=== PATIENT | male | born 1965 | race African-American/Black ===

== ENCOUNTER 2016-07-07 14:54 | Inpatient (IN) | payer MEDICARE, OTHER ==
[2016-07-07 16:23] VITALS: BMI 23.3
--- NOTE | 2016-07-07 16:40 | HP ---
CIWA Score - CIWA Score Nausea/Vomitin-Mild Nausea/No Vomiting Muscle Tremors: 4-Moderate,w/Arms Extend Anxiety: 4-Mod. Anxious/Guarded Agitation: 4-Moderately Restless Paroxysmal Sweats: 2 Orientation: 0-Oriented Tacttile Disturbances: 0-None Auditory Disturbances: 0-None Visual Disturbances: 0-None Headache: 0-None Present CIWA-Ar Total Score: 15 Admission ROS BHS - HPI Chief Complaint: WITHDRAWAL SX Allergies/Adverse Reactions: Allergies Allergy/AdvReac Type Severity Reaction Status Date / Time No Known Allergies Allergy Verified 07/07/16 16:19 History of Present Illness: 50 YEARS OLD MALE WITH LONG HISTORY OF ALCOHOL COCAINE MARIJUANA NICOTINE DEPENDENCE, TEETH FILLING OUT X 8-9 MONTHS DENIES MENTAL ILLNESS IS ADMITTED TO DETOX Exam Limitations: No Limitations - Ebola screening Have you traveled outside of the country in the last 21 days: No Have you had contact with anyone from an Ebola affected area: No Have you been sick,other than usual withdrawal symptoms: No Do you have a fever: No - Review of Systems Constitutional: Chills, Loss of Appetite, Changes in sleep, Unintentional Wgt. Loss, Unexplained wgt Loss EENT: reports: Dental Problems (LEFT AND RIGHT UPPER TEETH FILLING OUT X 8-9 MONTHS) Respiratory: reports: No Symptoms reported Cardiac: reports: No Symptoms Reported GI: reports: Nausea, Poor Appetite, Poor Fluid Intake, Abdominal cramping : reports: No Symptoms Reported Musculoskeletal: reports: No Symptoms Reported Integumentary: reports: No Symptoms Reported Neuro: reports: Tremors Endocrine: reports: No Symptoms Reported Hematology: reports: No Symptoms Reported Psychiatric: reports: Judgement Intact, Mood/Affect Appropiate, Orientated x3 Other Systems: Reviewed and Negative Patient History - Patient Medical History Hx Anemia: No Hx Asthma: No Hx Chronic Obstructive Pulmonary Disease (COPD): No Hx Cancer: No Hx Cardiac Disorders: No Hx Congestive Heart Failure: No Hx Hypertension: No Hx Hypercholesterolemia: No Hx Pacemaker: No HX Cerebrovascular Accident: No Hx Seizures: No Hx Dementia: No Hx Diabetes: No Hx Gastrointestinal Disorders: No Hx Liver Disease: No Hx Genitourinary Disorders: No Hx Sexually Transmitted Disorders: No Hx Renal Disease (ESRD): No Hx Thyroid Disease: No Hx Human Immunodeficiency Virus (HIV): No Hx Hepatitis C: No Hx Depression: No Hx Suicide Attempt: No Hx Bipolar Disorder: No Hx Schizophrenia: No - Patient Surgical History Past Surgical History: No Hx Neurologic Surgery: No Hx Cataract Extraction: No Hx Cardiac Surgery: No Hx Lung Surgery: No Hx Breast Surgery: No Hx Breast Biopsy: No Hx Abdominal Surgery: No Hx Appendectomy: No Hx Cholecystectomy: No Hx Genitourinary Surgery: No Hx Orthopedic Surgery: No - PPD History Previous Implant?: Yes Documented Results: Negative w/o proof Implanted On Prior [facility] Admission?: No PPD to be Administered?: Yes - Smoking Cessation Smoking history: Current every day smoker Have you smoked in the past 12 months: Yes Aproximately how many cigarettes per day: 5 Cigars Per Day: 0 Hx Chewing Tobacco Use: No Initiated information on smoking cessation: Yes 'Breaking Loose' booklet given: 07/07/16 - Substance & Tx. History Hx Alcohol Use: Yes Hx Substance Use: Yes Substance Use Type: Alcohol, Cocaine, Marijuana Hx Substance Use Treatment: Yes - Substances Abused Alcohol Route: Oral Frequency: Daily Amount used: 5 beer, 5th tres Age of first use: 17 Date of Last Use: 07/07/16 Cocaine Route: Inhalation Frequency: 1-3 times last 30 days Amount used: (2) 8 balls Age of first use: 50 Date of Last Use: 07/06/16 Marijuana/Hashish Route: Smoking Frequency: Daily Amount used: $80 Age of first use: 15 Date of Last Use: 07/07/16 K2 Route: Smoking Frequency: 3-6 times per week Amount used: 1 joint Age of first use: 50 Date of Last Use: 07/03/16 Family Disease History - Family Disease History Family Disease History: Diabetes: Mother Admission Physical Exam [facility] - Vital Signs Vital Signs: Vital Signs - 24 hr 07/07/16 16:18 Temperature 96.2 F L Pulse Rate 56 L Respiratory 18 Rate Blood Pressure 118/69 - Physical General Appearance: Yes: Appropriately Dressed, Moderate Distress, Thin, Tremorous, Irritable, Sweating, Anxious HEENTM: Yes: Hearing grossly Normal, Normal ENT Inspection, Normocephalic, Normal Voice Respiratory: Yes: Chest Non-Tender, Lungs Clear, Normal Breath Sounds, No Respiratory Distress, No Accessory Muscle Use Neck: Yes: Supple, Trachea in good position Breast: Yes: Breasts Symetrical Cardiology: Yes: Regular Rhythm, Regular Rate, S1, S2 Abdominal: Yes: Non Tender, Soft Genitourinary: Yes: Within Normal Limits Back: Yes: Normal Inspection Musculoskeletal: Yes: full range of Motion, Gait Steady Extremities: Yes: Normal Inspection, Normal Range of Motion, Non-Tender, Tremors Neurological: Yes: Fully Oriented, Alert, Motor Strength 5/5, Normal Mood/Affect , Normal Response Integumentary: Yes: Warm, Moist Lymphatic: Yes: Within Normal Limits - Diagnostic (1) Alcohol dependence with uncomplicated withdrawal Current Visit: Yes Status: Acute (2) Nicotine dependence Current Visit: Yes Status: Acute Qualifiers: Nicotine product type: cigarettes Substance use status: in withdrawal Qualified Code(s): F17.213 - Nicotine dependence, cigarettes, with withdrawal (3) Poor dentition Current Visit: Yes Status: Acute Comment: FILLING OUT X 8-9 MONTHS, "I BRUSH AND RINSE AFTER I EAT", DENIES PAIN , DENIES TROUBLE CHEWING (4) Cocaine dependence, uncomplicated Current Visit: Yes Status: Chronic (5) Cannabis dependence, uncomplicated Current Visit: Yes Status: Chronic Cleared for Admission [facility] - Detox or Rehab [facility] Level of Care: Medically Managed Detox Regimen/Protocol: Librium [facility] Breath Alcohol Content Breath Alcohol Content: 0 Urine Drug Screen - Results Drug Screen Negative: No Urine Drug Screen Results: THC-Marijuana, CICI-Cocaine
[2016-07-07] MEDS ORDERED: IBUPROFEN 400 MG TABLET (FP) PO PRN (16:43)
[2016-07-07] MEDS ORDERED: MAGNESIUM HYDROX 2400MG/30ML ORAL SUSPENSION 30 ML CUP PO PRN (16:43)
[2016-07-07] MEDS ORDERED: hydrOXYzine PAMOATE 50 MG CAPSULE (FP) PO PRN (16:43)
[2016-07-07] MEDS ORDERED: MAG HYDROX/AL HYDROX/SIMETH 30 ML UNIT-DOSE CUP PO PRN (16:43)
[2016-07-07] MEDS ORDERED: P-EPHED 60MG/TRIPROLIDI 2.5MG TABLET PO PRN (16:43)
[2016-07-07] MEDS ORDERED: LOPERAMIDE HCL 2 MG CAPSULE PO PRN (16:43)
[2016-07-07] MEDS ORDERED: MAGNESIUM CITRATE 300 ML BOTTLE PO PRN (16:43)
[2016-07-07] MEDS ORDERED: MENTHOL/PHENOL 1 EACH UD MM PRN (16:43)
[2016-07-07] MEDS ORDERED: NICOTINE POLACRILEX 2 MG GUM BC PRN (16:43)
[2016-07-07] MEDS ORDERED: ACETAMINOPHEN 325 MG TABLET (FP) PO PRN (16:43)
[2016-07-07] MEDS ORDERED: guaiFENesin/D-METHORPHAN HB 10 ML UNIT-DOSE CUPS PO PRN (16:43)
[2016-07-07] MEDS ORDERED: chlordiazePOXIDE HCL 25 MG CAPSULE PO PRN (16:43)
[2016-07-07] MEDS ORDERED: diphenhydrAMINE HCL 50 MG CAPSULE PO PRN (16:43)
[2016-07-07] MEDS: THIAMINE HCL 100 MG TABLET (FP) PO SCH (22:55)
[2016-07-07] MEDS: chlordiazePOXIDE HCL 25 MG CAPSULE PO SCH (23:05)
[2016-07-07 23:30] LABS: URINE APPEARANCE CLEAR; URINE BILIRUBIN NEGATIVE (NEGATIVE); URINE BLOOD NEGATIVE (NEGATIVE); URINE COLOR COLORLESS; URINE GLUCOSE (UA) NEGATIVE (NEGATIVE); URINE KETONE NEGATIVE (NEGATIVE); URINE LEUK ESTERASE NEGATIVE (NEGATIVE); URINE NITRITE NEGATIVE (NEGATIVE); URINE PROTEIN NEGATIVE (NEGATIVE); URINE UROBILINOGEN NEGATIVE E.U./dl (0.2-1.0)
[2016-07-08] MEDS: chlordiazePOXIDE HCL 25 MG CAPSULE PO SCH ×4 (05:25→22:07)
--- NOTE | 2016-07-08 09:39 | PN ---
S CIWA - CIWA Score Nausea/Vomitin Muscle Tremors: 3 Anxiety: 3 Agitation: 3 Paroxysmal Sweats: 1-Minimal Palms Moist Orientation: 0-Oriented Tacttile Disturbances: 1-Very Mild Itch/Numbness Auditory Disturbances: 1-Very Mild Visual Disturbances: 1-Very Mild Sensitivity Headache: 2-Mild CIWA-Ar Total Score: 18 BHS Progress Note (SOAP) Subjective: alert,irritable,anxious,interrupted sleep,tremor,interrupted sleep Objective: 07/08/16 09:38 Vital Signs Temperature 97.9 F 07/08/16 06:00 Pulse Rate 47 L 07/08/16 06:00 Respiratory Rate 18 07/08/16 06:00 Blood Pressure 103/64 07/08/16 06:00 O2 Sat by Pulse Oximetry (%) ekg sinus bradycardia 50/min Laboratory Last Values Urine Color Colorless 07/07/16 23:25 Urine Appearance Clear 07/07/16 23:25 Urine pH 6.0 (5.0-8.0) 07/07/16 23:25 Ur Specific [place] 1.001 (1.001-1.035) 07/07/16 23:25 Urine Protein Negative (NEGATIVE) 07/07/16 23:25 Urine Glucose (UA) Negative (NEGATIVE) 07/07/16 23:25 Urine Ketones Negative (NEGATIVE) 07/07/16 23:25 Urine Blood Negative (NEGATIVE) 07/07/16 23:25 Urine Nitrite Negative (NEGATIVE) 07/07/16 23:25 Urine Bilirubin Negative (NEGATIVE) 07/07/16 23:25 Urine Urobilinogen Negative E.U./dl (0.2-1.0) 07/07/16 23:25 Ur Leukocyte Esterase Negative (NEGATIVE) 07/07/16 23:25 07/08/16 09:39 labs pending Assessment: withdrawal symptom Plan: continue detox
[2016-07-08 10:03] LABS: MCH 30.6 pg (25.7-33.7); MCHC 33.4 g/dl (32.0-35.9); MEAN CELL VOLUME 91.8 fl (80-96); MEAN PLT VOLUME 9.7 fl (7.5-11.1); PLATELET COUNT 162 K/MM3 (134-434); RDW 15.6 % (11.9-15.9); WHITE BLOOD COUNT 3.6 K/mm3 (4.0-10.0)
[2016-07-08] MEDS: PRENATAL VITAMINS W/ FOLIC ACID TABLET (FP) PO SCH (10:12)
[2016-07-08 10:29] LABS: ALBUMIN 3.7 g/dl (3.4-5.0); BILIRUBIN,TOTAL 0.5 mg/dL (0.2-1.0); CALCIUM 9.1 mg/dL (8.5-10.1); CREATININE 1.3 mg/dL (0.7-1.3); TOT PROT 6.6 g/dl (6.4-8.2)
[2016-07-08] MEDS: NICOTINE 14 MG/24 HOURS TOPICAL PATCH TD SCH (11:02)
--- NOTE | 2016-07-08 15:20 | EKG ---
Test Reason : Blood Pressure : / mmHG Vent. Rate : 050 BPM Atrial Rate : 050 BPM P-R Int : 172 ms QRS Dur : 086 ms QT Int : 424 ms P-R-T Axes : 077 068 049 degrees QTc Int : 386 ms SINUS BRADYCARDIA MINIMAL VOLTAGE CRITERIA FOR LVH, MAY BE NORMAL VARIANT NO PREVIOUS ECGS AVAILABLE Confirmed by TRUMAN ROMAN MD ([id number]) on 07/08/2016 3:20:28 PM Referred By: Confirmed By:TRUMAN ROMAN MD
[2016-07-08] MEDS: THIAMINE HCL 100 MG TABLET (FP) PO SCH (22:07)
[2016-07-09] MEDS: chlordiazePOXIDE HCL 25 MG CAPSULE PO SCH ×3 (05:19→17:48)
--- NOTE | 2016-07-09 09:00 | PN ---
BHS CIWA - CIWA Score Nausea/Vomitin Muscle Tremors: 3 Anxiety: 3 Paroxysmal Sweats: 1-Minimal Palms Moist Orientation: 0-Oriented Tacttile Disturbances: 1-Very Mild Itch/Numbness Auditory Disturbances: 1-Very Mild Visual Disturbances: 1-Very Mild Sensitivity Headache: 2-Mild BHS Progress Note (SOAP) Subjective: ALERT,IRRITABLE,ANXIOUS,INTERRUPTED SLEEP,TREMOR Objective: 07/09/16 09:00 Vital Signs Temperature 97.3 F L 07/09/16 06:20 Pulse Rate 76 07/09/16 06:20 Respiratory Rate 18 07/09/16 06:20 Blood Pressure 100/64 07/09/16 06:20 O2 Sat by Pulse Oximetry (%) Laboratory Last Values WBC 3.6 K/mm3 (4.0-10.0) L 07/08/16 07:30 RBC 4.66 M/mm3 (4.00-5.60) 07/08/16 07:30 Hgb 14.3 GM/dL (11.7-16.9) 07/08/16 07:30 Hct 42.8 % (35.4-49) 07/08/16 07:30 MCV 91.8 fl (80-96) 07/08/16 07:30 MCHC 33.4 g/dl (32.0-35.9) 07/08/16 07:30 RDW 15.6 % (11.9-15.9) 07/08/16 07:30 Plt Count 162 K/MM3 (134-434) 07/08/16 07:30 MPV 9.7 fl (7.5-11.1) 07/08/16 07:30 Sodium 142 mmol/L (136-145) 07/08/16 07:30 Potassium 3.8 mmol/L (3.5-5.1) 07/08/16 07:30 Chloride 106 mmol/L (98-107) 07/08/16 07:30 Carbon Dioxide 29 mmol/L (21-32) 07/08/16 07:30 Anion Gap 7 (8-16) L 07/08/16 07:30 BUN 10 mg/dL (7-18) 07/08/16 07:30 Creatinine 1.3 mg/dL (0.7-1.3) 07/08/16 07:30 Creat Clearance w eGFR 58.92 (>60) 07/08/16 07:30 Random Glucose 85 mg/dL (74-106) 07/08/16 07:30 Calcium 9.1 mg/dL (8.5-10.1) 07/08/16 07:30 Total Bilirubin 0.5 mg/dL (0.2-1.0) 07/08/16 07:30 AST 12 U/L (15-37) L 07/08/16 07:30 ALT 14 U/L (12-78) 07/08/16 07:30 Alkaline Phosphatase 75 U/L (45-117) 07/08/16 07:30 Total Protein 6.6 g/dl (6.4-8.2) 07/08/16 07:30 Albumin 3.7 g/dl (3.4-5.0) 07/08/16 07:30 Urine Color Colorless 07/07/16 23:25 Urine Appearance Clear 07/07/16 23:25 Urine pH 6.0 (5.0-8.0) 07/07/16 23:25 Ur Specific [place] 1.001 (1.001-1.035) 07/07/16 23:25 Urine Protein Negative (NEGATIVE) 07/07/16 23:25 Urine Glucose (UA) Negative (NEGATIVE) 07/07/16 23:25 Urine Ketones Negative (NEGATIVE) 07/07/16 23:25 Urine Blood Negative (NEGATIVE) 07/07/16 23:25 Urine Nitrite Negative (NEGATIVE) 07/07/16 23:25 Urine Bilirubin Negative (NEGATIVE) 07/07/16 23:25 Urine Urobilinogen Negative E.U./dl (0.2-1.0) 07/07/16 23:25 Ur Leukocyte Esterase Negative (NEGATIVE) 07/07/16 23:25 RPR Titer Nonreactive (NONREACTIVE) 07/08/16 07:30 Hepatitis C Antibody <0.1 s/co ratio (0.0-0.9) 07/07/16 07:30 Assessment: 07/09/16 09:00 WITHDRAWAL SYMPTOM Plan: CONTINUE DETOX
[2016-07-09] MEDS: NICOTINE 14 MG/24 HOURS TOPICAL PATCH TD SCH (10:07)
[2016-07-09] MEDS: PRENATAL VITAMINS W/ FOLIC ACID TABLET (FP) PO SCH (10:07)
[2016-07-09] MEDS: chlordiazePOXIDE 5 MG CAPSULE PO SCH (22:55)
[2016-07-09] MEDS: THIAMINE HCL 100 MG TABLET (FP) PO SCH (22:55)
[2016-07-10] MEDS: chlordiazePOXIDE 5 MG CAPSULE PO SCH ×3 (05:31→18:08)
[2016-07-10] MEDS: PRENATAL VITAMINS W/ FOLIC ACID TABLET (FP) PO SCH (11:01)
[2016-07-10] MEDS: NICOTINE 14 MG/24 HOURS TOPICAL PATCH TD SCH (11:01)
--- NOTE | 2016-07-10 12:13 | PN ---
S Progress Note (SOAP) Subjective: ALERT,IRRITABLE,ANXIOUS,INTERRUPTED SLEEP Objective: 07/10/16 12:12 Vital Signs Temperature 97.9 F 07/10/16 09:52 Pulse Rate 70 07/10/16 09:52 Respiratory Rate 20 07/10/16 09:52 Blood Pressure 92/64 07/10/16 09:52 O2 Sat by Pulse Oximetry (%) Assessment: 07/10/16 12:12 WITHDRAWAL SYMPTOM Plan: CONTINUE DETOX,DISCHARGE IN AM
[2016-07-10] MEDS: chlordiazePOXIDE HCL 10 MG CAPSULE PO SCH (22:40)
[2016-07-10] MEDS: THIAMINE HCL 100 MG TABLET (FP) PO SCH (22:40)
[2016-07-11] MEDS: chlordiazePOXIDE HCL 10 MG CAPSULE PO SCH (06:10)
[2016-07-11 06:18] VITALS: BP 104/59; PULSE 58; TEMP 97.5
--- NOTE | 2016-07-11 08:42 | DS ---
[facility] Detox Discharge Summary Admission Date: 07/07/16 Discharge Date: 07/11/16 - History Present History: Alcohol Dependence, Cannabis Dependence, Cocaine Dependence - Physical Exam Results Vital Signs: Vital Signs Temperature 97.5 F L 07/11/16 06:00 Pulse Rate 58 L 07/11/16 06:00 Respiratory Rate 18 07/11/16 06:00 Blood Pressure 104/59 07/11/16 06:00 O2 Sat by Pulse Oximetry (%) - Treatment Hospital Course: Detox Protocol Followed, Detoxed Safely, Responded well, Discharged Condition Good, Rehab Referral Accepted - Medication Discharge Medications: Ambulatory Orders NK [No Known Home Medication] 07/07/16 - Diagnosis (1) Alcohol dependence with uncomplicated withdrawal Current Visit: Yes Status: Chronic (2) Nicotine dependence Current Visit: Yes Status: Chronic Qualifiers: Nicotine product type: cigarettes Substance use status: in withdrawal Qualified Code(s): F17.213 - Nicotine dependence, cigarettes, with withdrawal (3) Poor dentition Current Visit: Yes Status: Chronic (4) Cannabis dependence, uncomplicated Current Visit: Yes Status: Chronic (5) Cocaine dependence, uncomplicated Current Visit: Yes Status: Chronic - AMA Did Patient Leave Against Medical Advice: No
== END 2016-07-11 09:59 | disposition home or self-care (01) | DRG 774 ==
LOC: YASAS 14:54 → Y6N 17:44
PROVIDERS: ADMIT Internal Medicine Addiction Medicine; ATTEND Internal Medicine Addiction Medicine
PROC: HZ2ZZZZ Detoxification Services for Substance Abuse Treatment (ICD-10-PCS; principal; 2016-07-07)
DX: F10.230 Alcohol dependence with withdrawal, uncomplicated (principal); F14.20 Cocaine dependence, uncomplicated; F12.20 Cannabis dependence, uncomplicated; F17.210 Nicotine dependence, cigarettes, uncomplicated; K08.9 Disorder of teeth and supporting structures, unspecified; R00.0 Tachycardia, unspecified; Z59.0 Homelessness
CPT/HCPCS: 36415; 80053; 81003; 85027; 86593; 93005; 93010

== ENCOUNTER 2018-09-18 10:12 | Inpatient (IN) | payer SELFPAY ==
[2018-09-18 10:52] VITALS: BMI 24.8
--- NOTE | 2018-09-18 12:06 | HP ---
CIWA Score Nausea/Vomitin-No Nausea/No Vomiting Muscle Tremors: 1-None Visible, but [place] Anxiety: 1-Mildly Anxious Agitation: 2 Paroxysmal Sweats: 3 Orientation: 0-Oriented Tacttile Disturbances: 0-None Auditory Disturbances: 6-Extreme Hallucinations Visual Disturbances: 0-None Headache: 0-None Present CIWA-Ar Total Score: 13 - Admission Criteria [facility] Guidelines: Admission for Medically Managed Detox: Requires at least one of the followin. CIWA greater than 12 2. Seizures within the past 24 hours 3. Delirium tremens within the past 24 hours 4. Hallucinations within the past 24 hours 5. Acute intervention needed for co occurring medical disorder 6. Acute intervention needed for co occurring psychiatric disorder 7. Severe withdrawal that cannot be handled at a lower level of care (continued vomiting, continued diarrhea, abnormal vital signs) requiring intravenous medication and/or fluids 8. Admission ROS [facility] Allergies/Adverse Reactions: Allergies Allergy/AdvReac Type Severity Reaction Status Date / Time No Known Allergies Allergy Verified 07/07/16 16:19 History of Present Illness: pt here requesting detox from etoh use 6- 7 beers/day since prior attempt at detox , increasingly since May 2018, starts drinking in the mornings upon awakening, denies tremors , denies seizures, one time blackout, denies falls while intoxicated Current symptoms : as above . Lost 25 lbs in the last 3 months 2/2 use of illicits. utox + mily , thc cocaine : daily via inhalation , average 0.5 -1 gr/day denies IVDU , since age 25 cannabis use : 3-4 blunts/day since age 17 tobacco : 7-8 cigs/day since age 22 PMHX : denies PSHx : denies PSYch :denies Meds : denies Allergies : denies SHx : lives w/ mother , unemployed Exam Limitations: No Limitations - Ebola screening Have you traveled outside of the country in the last 21 days: No (N) Have you had contact with anyone from an Ebola affected area: No Do you have a fever: No - Review of Systems Constitutional: See HPI EENT: reports: No Symptoms Reported Respiratory: reports: No Symptoms reported Cardiac: reports: No Symptoms Reported GI: reports: No Symptoms Reported : reports: No Symptoms Reported Musculoskeletal: reports: No Symptoms Reported Integumentary: reports: No Symptoms Reported Neuro: reports: No Symptoms reported Endocrine: reports: No Symptoms Reported Psychiatric: reports: No Sypmtoms Reported Patient History - Patient Medical History Hx Anemia: No Hx Asthma: No Hx Chronic Obstructive Pulmonary Disease (COPD): No Hx Cancer: No Hx Cardiac Disorders: No Hx Congestive Heart Failure: No Hx Hypertension: No Hx Hypercholesterolemia: No Hx Pacemaker: No HX Cerebrovascular Accident: No Hx Seizures: No Hx Dementia: No Hx Diabetes: No Hx Gastrointestinal Disorders: No Hx Liver Disease: No Hx Genitourinary Disorders: No Hx Sexually Transmitted Disorders: No Hx Renal Disease (ESRD): No Hx Thyroid Disease: No Hx Human Immunodeficiency Virus (HIV): No Hx Hepatitis C: No Hx Depression: No Hx Suicide Attempt: No Hx Bipolar Disorder: No Hx Schizophrenia: No - Patient Surgical History Past Surgical History: No Hx Neurologic Surgery: No Hx Cataract Extraction: No Hx Cardiac Surgery: No Hx Lung Surgery: No Hx Breast Surgery: No Hx Breast Biopsy: No Hx Abdominal Surgery: No Hx Appendectomy: No Hx Cholecystectomy: No Hx Genitourinary Surgery: No Hx Section: No Hx Orthopedic Surgery: No Anesthesia Reaction: No - PPD History Date: 07/09/16 - Smoking Cessation Smoking history: Current every day smoker Have you smoked in the past 12 months: Yes Aproximately how many cigarettes per day: 5 Cigars Per Day: 0 Hx Chewing Tobacco Use: No Initiated information on smoking cessation: No - Substances abused Alcohol Substance route: Oral Frequency: Daily Amount used: 6 CANS 24OZ BEER Age of first use: 17 Date of last use: 09/18/18 Cocaine Substance route: Inhalation Frequency: 3-6 times per week Amount used: 3.5G Age of first use: 26 Date of last use: 09/17/18 Marijuana/Hashish Substance route: Smoking Frequency: Daily Amount used: 4-5 BLUNT Age of first use: 16 Date of last use: 09/18/18 Family Disease History - Family Disease History Family Disease History: Diabetes: Mother Admission Physical Exam [facility] - Vital Signs Vital Signs: Vital Signs - 24 hr 09/18/18 10:39 Temperature 97.5 F L Pulse Rate 78 Respiratory 18 Rate Blood Pressure 113/72 - Physical General Appearance: Yes: Mild Distress, Anxious HEENTM: Yes: EOMI, Normocephalic, Normal Voice Respiratory: Yes: Chest Non-Tender, Lungs Clear, Normal Breath Sounds Neck: Yes: No masses,lesions,Nodules, Trachea in good position Cardiology: Yes: Regular Rhythm, Regular Rate, S1, S2 Abdominal: Yes: Non Tender, Soft Back: Yes: Normal Inspection Musculoskeletal: Yes: Gait Steady Extremities: Yes: Normal Range of Motion, Non-Tender Neurological: Yes: Fully Oriented, Alert, Motor Strength 5/5 Integumentary: Yes: Warm, Other (scardorsum left wrist from prior work injury 1996 in [place]) - Diagnostic (1) Alcohol dependence with uncomplicated withdrawal Current Visit: Yes Status: Acute (2) Cannabis dependence, uncomplicated Current Visit: Yes Status: Chronic (3) Cocaine dependence, uncomplicated Current Visit: Yes Status: Chronic (4) Nicotine dependence Current Visit: Yes Status: Chronic Qualifiers: Nicotine product type: cigarettes Breathalyzer - Breathalyzer Breathalyzer: 0.018 Urine Drug Screen - Test Device Lot number: [id number] Expiration date: 06/07/20 - Control Is test valid?: Yes - Results Drug screen NEGATIVE: No Urine drug screen results: THC-Marijuana, MILY-Cocaine Inpatient Rehab Admission - Rehab Decision to Admit Inpatient rehab admission?: No
[2018-09-18] MEDS ORDERED: ACETAMINOPHEN 325 MG TABLET (FP) PO PRN ×2 (12:38)
[2018-09-18] MEDS ORDERED: MAGNESIUM CITRATE 300 ML BOTTLE PO PRN (12:38)
[2018-09-18] MEDS ORDERED: MAG HYDROX/AL HYDROX/SIMETH 30 ML UNIT-DOSE CUP PO PRN (12:38)
[2018-09-18] MEDS ORDERED: IBUPROFEN 400 MG TABLET (FP) PO PRN (12:38)
[2018-09-18] MEDS ORDERED: MAGNESIUM HYDROX 2400MG/30ML ORAL SUSPENSION 30 ML CUP PO PRN (12:38)
[2018-09-18] MEDS ORDERED: BISMUTH SUBSALICYLATE 262 MG/15 ML BTL PO PRN (12:38)
[2018-09-18] MEDS ORDERED: DICYCLOMINE HCL 10 MG CAPSULE PO PRN (12:38)
[2018-09-18] MEDS: diazePAM 5 MG TABLET PO SCH ×2 (15:21→22:22)
[2018-09-18] MEDS: THIAMINE HCL 100 MG TABLET (FP) PO SCH (22:22)
[2018-09-18] MEDS: MELATONIN 5 MG TABLETS PO PRN (22:22)
[2018-09-18 23:26] LABS: HEMATOCRIT 43.6 % (35.4-49); HEMOGLOBIN 14.5 GM/dL (11.7-16.9); MCH 30.7 pg (25.7-33.7); MCHC 33.2 g/dl (32.0-35.9); MEAN CELL VOLUME 92.7 fl (80-96); MEAN PLT VOLUME 8.9 fl (7.5-11.1); PLATELET COUNT 267 K/MM3 (134-434); RBC 4.71 M/mm3 (4.00-5.60); RDW 15.5 % (11.9-15.9); WHITE BLOOD COUNT 5.3 K/mm3 (4.0-10.0)
[2018-09-18 23:42] LABS: BILIRUBIN,TOTAL 0.5 mg/dL (0.2-1); CALCIUM 9.7 mg/dL (8.5-10.1); CREATININE 1.1 mg/dL (0.55-1.3); POTASSIUM 4.6 mmol/L (3.5-5.1); TOT PROT 7.6 g/dl (6.4-8.2)
[2018-09-19] MEDS: diazePAM 5 MG TABLET PO SCH ×3 (05:59→22:05)
[2018-09-19] MEDS: PRENATAL VITAMINS W/ FOLIC ACID TABLET (FP) PO SCH (10:35)
--- NOTE | 2018-09-19 10:51 | PN ---
[facility] CIWA - CIWA Score Nausea/Vomitin-Mild Nausea/No Vomiting Muscle Tremors: 2 Anxiety: 3 Agitation: 3 Paroxysmal Sweats: 1-Minimal Palms Moist Orientation: 2-Disoriented Date<2 days Tacttile Disturbances: 0-None Auditory Disturbances: 0-None Visual Disturbances: 0-None Headache: 0-None Present CIWA-Ar Total Score: 12 BHS Progress Note (SOAP) Subjective: anxious doing well with valium detox regimen resting on bed hesitate to discuss aftercare at this time Objective: 09/19/18 10:54 Vital Signs Temperature 97 F L 09/19/18 09:10 Pulse Rate 60 09/19/18 09:10 Respiratory Rate 16 09/19/18 09:10 Blood Pressure 103/70 09/19/18 09:10 O2 Sat by Pulse Oximetry (%) Laboratory Last Values WBC 5.3 K/mm3 (4.0-10.0) 09/18/18 13:00 RBC 4.71 M/mm3 (4.00-5.60) 09/18/18 13:00 Hgb 14.5 GM/dL (11.7-16.9) 09/18/18 13:00 Hct 43.6 % (35.4-49) 09/18/18 13:00 MCV 92.7 fl (80-96) 09/18/18 13:00 MCH 30.7 pg (25.7-33.7) 09/18/18 13:00 MCHC 33.2 g/dl (32.0-35.9) 09/18/18 13:00 RDW 15.5 % (11.9-15.9) 09/18/18 13:00 Plt Count 267 K/MM3 (134-434) D 09/18/18 13:00 MPV 8.9 fl (7.5-11.1) 09/18/18 13:00 Sodium 137 mmol/L (136-145) 09/18/18 13:00 Potassium 4.6 mmol/L (3.5-5.1) 09/18/18 13:00 Chloride 103 mmol/L (98-107) 09/18/18 13:00 Carbon Dioxide 30 mmol/L (21-32) 09/18/18 13:00 Anion Gap 4 MMOL/L (8-16) L 09/18/18 13:00 BUN 10 mg/dL (7-18) 09/18/18 13:00 Creatinine 1.1 mg/dL (0.55-1.3) 09/18/18 13:00 Est GFR (CKD-EPI)AfAm 89.61 09/18/18 13:00 Est GFR (CKD-EPI)NonAf 77.32 09/18/18 13:00 POC Glucometer 132 UNITS (80-120) 09/18/18 23:54 Random Glucose 49 mg/dL (74-106) L* 09/18/18 13:00 Calcium 9.7 mg/dL (8.5-10.1) 09/18/18 13:00 Total Bilirubin 0.5 mg/dL (0.2-1) 09/18/18 13:00 AST 17 U/L (15-37) 09/18/18 13:00 ALT 16 U/L (13-61) 09/18/18 13:00 Alkaline Phosphatase 66 U/L (45-117) 09/18/18 13:00 Total Protein 7.6 g/dl (6.4-8.2) 09/18/18 13:00 Albumin 4.0 g/dl (3.4-5.0) 09/18/18 13:00 RPR Titer Nonreactive (NONREACTIVE) 09/18/18 13:00 lab noted 09/19/18 10:55 ensure 120 ml po daily Assessment: 09/19/18 10:55 benzo withdrawal sx Plan: continue detox
[2018-09-19] MEDS: MENTHOL/PHENOL 1 EACH UD MM PRN (17:18)
[2018-09-19] MEDS: diazePAM 5 MG TABLET PO PRN (17:18)
[2018-09-19] MEDS: NICOTINE POLACRILEX 2 MG GUM BUC PRN (17:19)
[2018-09-19] MEDS: THIAMINE HCL 100 MG TABLET (FP) PO SCH (22:04)
[2018-09-19] MEDS: MELATONIN 5 MG TABLETS PO PRN (22:05)
[2018-09-20] MEDS ORDERED: diazePAM 5 MG TABLET PO ONE (06:00)
[2018-09-20] MEDS: PRENATAL VITAMINS W/ FOLIC ACID TABLET (FP) PO SCH (10:59)
[2018-09-20] MEDS: diazePAM 5 MG TABLET PO PRN ×2 (11:01→22:20)
--- NOTE | 2018-09-20 11:17 | PN ---
[facility] CIWA - CIWA Score Nausea/Vomitin-Mild Nausea/No Vomiting Muscle Tremors: 2 Anxiety: 1-Mildly Anxious Agitation: 2 Paroxysmal Sweats: 1-Minimal Palms Moist Orientation: 0-Oriented Tacttile Disturbances: 0-None Auditory Disturbances: 0-None Visual Disturbances: 0-None Headache: 0-None Present CIWA-Ar Total Score: 7 S Progress Note (SOAP) Subjective: patient referred to [facility] PPD not ready for result [facility] requests PPD result Objective: 09/20/18 11:58 Vital Signs Temperature 97.1 F L 09/20/18 09:46 Pulse Rate 61 09/20/18 09:46 Respiratory Rate 20 09/20/18 09:46 Blood Pressure 107/71 09/20/18 09:46 O2 Sat by Pulse Oximetry (%) Laboratory Last Values WBC 5.3 K/mm3 (4.0-10.0) 09/18/18 13:00 RBC 4.71 M/mm3 (4.00-5.60) 09/18/18 13:00 Hgb 14.5 GM/dL (11.7-16.9) 09/18/18 13:00 Hct 43.6 % (35.4-49) 09/18/18 13:00 MCV 92.7 fl (80-96) 09/18/18 13:00 MCH 30.7 pg (25.7-33.7) 09/18/18 13:00 MCHC 33.2 g/dl (32.0-35.9) 09/18/18 13:00 RDW 15.5 % (11.9-15.9) 09/18/18 13:00 Plt Count 267 K/MM3 (134-434) D 09/18/18 13:00 MPV 8.9 fl (7.5-11.1) 09/18/18 13:00 Sodium 137 mmol/L (136-145) 09/18/18 13:00 Potassium 4.6 mmol/L (3.5-5.1) 09/18/18 13:00 Chloride 103 mmol/L (98-107) 09/18/18 13:00 Carbon Dioxide 30 mmol/L (21-32) 09/18/18 13:00 Anion Gap 4 MMOL/L (8-16) L 09/18/18 13:00 BUN 10 mg/dL (7-18) 09/18/18 13:00 Creatinine 1.1 mg/dL (0.55-1.3) 09/18/18 13:00 Est GFR (CKD-EPI)AfAm 89.61 09/18/18 13:00 Est GFR (CKD-EPI)NonAf 77.32 09/18/18 13:00 POC Glucometer 132 UNITS (80-120) 09/18/18 23:54 Random Glucose 49 mg/dL (74-106) L* 09/18/18 13:00 Calcium 9.7 mg/dL (8.5-10.1) 09/18/18 13:00 Total Bilirubin 0.5 mg/dL (0.2-1) 09/18/18 13:00 AST 17 U/L (15-37) 09/18/18 13:00 ALT 16 U/L (13-61) 09/18/18 13:00 Alkaline Phosphatase 66 U/L (45-117) 09/18/18 13:00 Total Protein 7.6 g/dl (6.4-8.2) 09/18/18 13:00 Albumin 4.0 g/dl (3.4-5.0) 09/18/18 13:00 RPR Titer Nonreactive (NONREACTIVE) 09/18/18 13:00 lab noted Assessment: 09/20/18 11:58 benzo withdrawal sx Plan: continue detox
[2018-09-20] MEDS: THIAMINE HCL 100 MG TABLET (FP) PO SCH (22:19)
[2018-09-20] MEDS: NICOTINE POLACRILEX 2 MG GUM BUC PRN (22:21)
[2018-09-21 09:22] VITALS: BP 99/54; PULSE 52; TEMP 97.4
[2018-09-21] MEDS: diazePAM 5 MG TABLET PO PRN (10:29)
[2018-09-21] MEDS: PRENATAL VITAMINS W/ FOLIC ACID TABLET (FP) PO SCH (10:29)
[2018-09-21] MEDS: MENTHOL/PHENOL 1 EACH UD MM PRN (10:30)
--- NOTE | 2018-09-21 19:01 | DS ---
[facility] Detox Discharge Summary Admission Date: 09/18/18 Discharge Date: 09/21/18 - History Present History: Alcohol Dependence, Cannabis Dependence, Cocaine Dependence Additional Comments: PATIENT GOING TO [facility] ([place], [place]) DIDIER WOODARD. PATIENT WAS DISCHARGED FROM DETOX UNIT IN STABLE MEDICAL CONDITION. Pertinent Past History: Nicotine Dependence. - Physical Exam Results Vital Signs: Vital Signs Temperature 97.4 F L 09/21/18 09:21 Pulse Rate 52 L 09/21/18 09:21 Respiratory Rate 20 09/21/18 09:21 Blood Pressure 99/54 L 09/21/18 09:21 O2 Sat by Pulse Oximetry (%) Pertinent Admission Physical Exam Findings: WITHDRAWAL SYMPTOMS. Laboratory Tests 09/18/18 09/18/18 09/18/18 13:00 13:00 13:00 WBC 5.3 RBC 4.71 Hgb 14.5 Hct 43.6 MCV 92.7 MCH 30.7 MCHC 33.2 RDW 15.5 Plt Count 267 D MPV 8.9 Sodium 137 Potassium 4.6 Chloride 103 Carbon Dioxide 30 Anion Gap 4 L BUN 10 Creatinine 1.1 Est GFR (CKD-EPI)AfAm 89.61 Est GFR (CKD-EPI)NonAf 77.32 POC Glucometer Random Glucose 49 L* Calcium 9.7 Total Bilirubin 0.5 AST 17 ALT 16 Alkaline Phosphatase 66 Total Protein 7.6 Albumin 4.0 RPR Titer Nonreactive 09/18/18 23:54 WBC RBC Hgb Hct MCV MCH MCHC RDW Plt Count MPV Sodium Potassium Chloride Carbon Dioxide Anion Gap BUN Creatinine Est GFR (CKD-EPI)AfAm Est GFR (CKD-EPI)NonAf POC Glucometer 132 Random Glucose Calcium Total Bilirubin AST ALT Alkaline Phosphatase Total Protein Albumin RPR Titer LABS NOTED. - Treatment Hospital Course: Detox Protocol Followed, Detoxed Safely, Responded well, Discharged Condition Good Patient has Accepted a Rehab Referral to: PT. GOING TO [facility] ([place], [place]). - Medication Discharge Medications: Ambulatory Orders NK [No Known Home Medication] 07/07/16 - Diagnosis (1) Alcohol dependence with uncomplicated withdrawal Status: Acute (2) Cannabis dependence, uncomplicated Status: Chronic (3) Cocaine dependence, uncomplicated Status: Chronic (4) Nicotine dependence Status: Chronic Qualifiers: Nicotine product type: cigarettes Substance use status: uncomplicated Qualified Code(s): F17.210 - Nicotine dependence, cigarettes, uncomplicated - AMA Did Patient Leave Against Medical Advice: No
== END 2018-09-21 12:28 | disposition home or self-care (01) | DRG 774 ==
LOC: YASAS 10:12 → Y3N 12:52
PROVIDERS: ADMIT Surgery; ATTEND Surgery
PROC: HZ2ZZZZ Detoxification Services for Substance Abuse Treatment (ICD-10-PCS; principal; 2018-09-18)
DX: F10.230 Alcohol dependence with withdrawal, uncomplicated (principal); F14.20 Cocaine dependence, uncomplicated; F12.20 Cannabis dependence, uncomplicated; F17.210 Nicotine dependence, cigarettes, uncomplicated
CPT/HCPCS: 36415; 80053; 82962; 85027; 86593

== ENCOUNTER 2019-01-16 11:19 | Inpatient (IN) | payer SELFPAY | END 2019-01-21 09:45 | disposition home or self-care (01) | LOC: YASAS 11:19 → Y6N 14:33 ==

== ENCOUNTER 2019-02-04 11:27 | Emergency (ER) | payer OTHER ==
[2019-02-04 11:49] VITALS: BMI 22.1
--- NOTE | 2019-02-04 12:11 | PDOC ---
History of Present Illness - General Chief Complaint: Injury Stated Complaint: FALL Time Seen by Provider: 02/04/19 12:07 - History of Present Illness Initial Comments: 02/04/19 13:[address] [facility], pt fell at the facility prior to admission. He admitted to drinking alcohol approx 7 beer cans and using cocaine and crack. Pt arousable, but unwilling to give history or any details on his condition after multiple attempts. however allowed some physical evaluation. Past History - Past Medical History Allergies/Adverse Reactions: Allergies Allergy/AdvReac Type Severity Reaction Status Date / Time No Known Allergies Allergy Verified 01/16/19 12:24 Home Medications: Ambulatory Orders NK [No Known Home Medication] 07/07/16 Anemia: No Asthma: No Cancer: No Cardiac Disorders: No CVA: No COPD: No CHF: No Dementia: No Diabetes: No GI Disorders: No Disorders: No HTN: No Hypercholesterolemia: No Kidney Stones: No Liver Disease: No Seizures: No Thyroid Disease: No - Surgical History Abdominal Surgery: No Appendectomy: No Cardiac Surgery: No Cholecystectomy: No Lung Surgery: No Neurologic Surgery: No Orthopedic Surgery: No - Reproductive History Testicular Surgery: No - Psycho Social/Smoking Cessation Hx Smoking History: Current every day smoker Have you smoked in the past 12 months: Yes Number of Cigarettes Smoked Daily: 5 Cigars Per Day: 0 Information on smoking cessation initiated: No 'Breaking Loose' booklet given: 01/16/19 Hx Alcohol Use: Yes Drug/Substance Use Hx: Yes Substance Use Type: Alcohol, Cocaine, Marijuana Hx Substance Use Treatment: No Review of Systems - Review of Systems Able to Perform ROS?: No Comments:: 02/04/19 13:45 Pt. uncooperative *Physical Exam - Vital Signs Last Vital Signs Temp Pulse Resp BP Pulse Ox 98.7 F 78 18 103/62 97 02/04/19 11:28 02/04/19 11:28 02/04/19 11:28 02/04/19 11:28 02/04/19 11:28 - Physical Exam Comments: 02/04/19 13:46 GENERAL: asleep but arousable, no acute distress HEAD: No signs of trauma, normocephalic, atraumatic EYES: conjunctival injection ENT: Auricles normal inspection, hearing grossly normal, nares patent, NECK: Normal ROM, supple, no lymphadenopathy, JVD, or masses LUNGS: No distress, clear to auscultation bilaterally HEART: Regular rate and rhythm, normal S1 and S2, no murmurs, rubs or gallops, peripheral pulses normal and equal bilaterally. ABDOMEN: Soft, nontender, normoactive bowel sounds. EXTREMITIES : Normal inspection, Normal range of motion, no edema. No clubbing or cyanosis NEUROLOGICAL: Normal gait. ambulating prior to discharge. SKIN: Warm, Dry, normal turgor, no rashes or lesions noted ED Treatment Course - LABORATORY CBC & Chemistry Diagram: 02/04/19 12:30 02/04/19 12:30 Medical Decision Making - Medical Decision Making 02/04/19 12:23 53 y/o M presenting from [facility], intoxicated , vitals wnl in no acute distress at this time. not currentl willing to give us a history cbc, cmp, 1L NS, alcohol level 02/04/19 12:29 02/04/19 13:40 Blood alcohol [address] C-spine CT Dr. Oziel Reagan at [facility] informed. pt cleared Discharge - Discharge Information Problems reviewed: Yes Clinical Impression/Diagnosis: Fall Qualifiers: Encounter type: initial encounter Qualified Code(s): W19.XXXA - Unspecified fall, initial encounter Alcohol dependence Qualifiers: Substance use status: uncomplicated Qualified Code(s): F10.20 - Alcohol dependence, uncomplicated Condition: Stable Disposition: HOME - Admission No - Follow up/Referral - Patient Discharge Instructions Patient Printed Discharge Instructions: DI for Alcohol Abuse Additional Instructions: You were seen in the ER for a fall. You are being discharged to [facility] for detox. Return to the ER if any of your presenting symptoms today worsen - Post Discharge Activity
[2019-02-04] MEDS ORDERED: SODIUM CHLORIDE 0.9% 500 ML INFUS.BAG IV ONE (12:22)
[2019-02-04 12:55] LABS: BASO % 1.5 % (0-2.0); EOS % 4.5 % (0-4.5); HEMATOCRIT 41.9 % (35.4-49); HEMOGLOBIN 13.8 GM/dL (11.7-16.9); LYMPH % 28.5 % (8-40); MCH 30.6 pg (25.7-33.7); MEAN CELL VOLUME 92.9 fl (80-96); MEAN PLT VOLUME 8.2 fl (7.5-11.1); MONO % 10.8 % (3.8-10.2); NEUT % 54.7 % (42.8-82.8); PLATELET COUNT 249 K/MM3 (134-434); RBC 4.51 M/mm3 (4.00-5.60); RDW 15.3 % (11.9-15.9); WHITE BLOOD COUNT 4.6 K/mm3 (4.0-10.0)
[2019-02-04 13:19] LABS: ALBUMIN 3.8 g/dl (3.4-5.0); BILIRUBIN,TOTAL 0.2 mg/dL (0.2-1); BLOOD UREA NITROGEN 11.2 mg/dL (7-18); CALCIUM 8.6 mg/dL (8.5-10.1); CREATININE 1.2 mg/dL (0.55-1.3); POTASSIUM 4.4 mmol/L (3.5-5.1)
--- NOTE | 2019-02-04 13:33 | PDOC ---
Attending Attestation - Resident Resident Name: Conrad Ayala - ED Attending Attestation I have performed the following: I have examined & evaluated the patient, The case was reviewed & discussed with the resident, I agree w/resident's findings & plan, Exceptions are as noted - HPI HPI: 02/04/19 14:03 53 years old past medical history significant for polysubstance abuse presented to [facility] for detox was found to be sleepy in the waiting room and sent to the ED for evaluation Patient endorses drinking smoking marijuana and using cocaine last night Upon arrival to the emergency department patient arousable with no complaints states he is tired no evidence of any injury - Physicial Exam PE: 02/04/19 14:03 Vitals: Triage Vital signs reviewed General Appearance: no acute distress, well nourished well developed, Head: Atraumatic, Cardiac: Regular rate and rhythym, no murmurs, no rubs, no gallops, Lungs: Clear to auscultation bilateral, good air movement bilaterally, Abdomen: Soft, non distended, normal bowel sounds, non tender to palpation Extremities: Full range of motion to all extremities, no cyanosis, clubbing, or edema Skin: Warm and dry, no rashes or lesions, no rash, no petechiae Neuro: Strength intact to all extremities, Sensation intact to all extremities, gait normal Psych: normal mood, normal affect - Medical Decision Making 02/04/19 14:04 53 years old with polysubstance abuse last night metabolizing appropriately head CT normal. Patient medically clear for return to [facility] for evaluation
[2019-02-04 14:42] VITALS: BP 112/79; PULSE 65
[2019-02-04 15:13] VITALS: TEMP 98.9
== END 2019-02-04 15:05 | disposition home or self-care (01) ==
LOC: JER 11:27
DX: F10.220 Alcohol dependence with intoxication, uncomplicated (principal); Y90.1 Blood alcohol level of 20-39 mg/100 ml; W19.XXXA Unspecified fall, initial encounter; Y93.89 Activity, other specified; Y92.238 Other place in hospital as the place of occurrence of the external cause; Y99.8 Other external cause status; F17.210 Nicotine dependence, cigarettes, uncomplicated; F14.10 Cocaine abuse, uncomplicated
CPT/HCPCS: 36415; 70450-TC; 72125-TC; 80053; 80307; 85025; 99283-25

== ENCOUNTER 2019-02-04 15:45 | Inpatient (IN) | payer OTHER ==
[2019-02-04 20:11] VITALS: BMI 20.3
--- NOTE | 2019-02-04 21:52 | HP ---
CIWA Score Nausea/Vomitin Muscle Tremors: 4-Moderate,w/Arms Extend Anxiety: 4-Mod. Anxious/Guarded Agitation: 4-Moderately Restless Paroxysmal Sweats: 4-Forehead w/Sweat Beads Orientation: 1-Uncertain about Date Tacttile Disturbances: 0-None Auditory Disturbances: 2-Mild Harshness/Frighten (to loud noise) Visual Disturbances: 0-None Headache: 0-None Present CIWA-Ar Total Score: 24 - Admission Criteria OASAS Guidelines: Admission for Medically Managed Detox: Requires at least one of the followin. CIWA greater than 12 2. Seizures within the past 24 hours 3. Delirium tremens within the past 24 hours 4. Hallucinations within the past 24 hours 5. Acute intervention needed for co occurring medical disorder 6. Acute intervention needed for co occurring psychiatric disorder 7. Severe withdrawal that cannot be handled at a lower level of care (continued vomiting, continued diarrhea, abnormal vital signs) requiring intravenous medication and/or fluids 8. Admitting History and Physical - Smoking History Smoking history: Current every day smoker Have you smoked in the past 12 months: Yes Aproximately how many cigarettes per day: 5 - Alcohol/Substance Use Hx Alcohol Use: Yes Admission [facility] Chief Complaint: c/o withdrawal sx's Allergies/Adverse Reactions: Allergies Allergy/AdvReac Type Severity Reaction Status Date / Time No Known Allergies Allergy Verified 02/04/19 20:04 History of Present Illness: HERE FOR ALCOHOL DETOX. CLIENT WAS REFERRED TO [facility] EARLIER AFTER A REPORTED FALL. RETURNS FROM [facility] AFTER BEING MEDICALLY CLEARED WITH NEGATIVE HEAD CT. CLIENT WAS DC ABOUT 2 WEEKS AGO. BUT REPORTS IMMEDIATELY RELAPSING AFTER DC AND HAS SINCE BEEN DRINKING DAILY. PRESENTS TODAY WITH C/O WITHDRAWAL SX'S. SEEKING REHAB AFTER DETOX. LAST DRINK EARLIER TODAY. 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 HE ALSO REPORTS CANNABIS AND COCAINE USE. UTOX + FOR OPI. CLIENT STATES IT WAS EXPERIMENTAL. RARELY DOES HEROIN " ONCE IN A BLUE [place]".DENIES HX/O SEIZURE BUT + BLACK OUTS. DENIES SI/HI/AVH, DT'S. HOMELESS, UNEMPLOYED, DENIES LEGALS. Exam Limitations: No Limitations - Ebola screening Have you traveled outside of the country in the last 21 days: No Have you had contact with anyone from an Ebola affected area: No Do you have a fever: No - Review of Systems Constitutional: Chills, Loss of Appetite, Malaise, Night Sweats, Changes in sleep EENT: reports: Dental Problems (CAVITIES, MISSING TEETH) Respiratory: reports: Shortness of Breath Cardiac: reports: No Symptoms Reported GI: reports: Nausea, Poor Appetite, Poor Fluid Intake, Abdominal cramping : reports: No Symptoms Reported Musculoskeletal: reports: Back Pain (CHRONIC), Joint Pain Integumentary: reports: No Symptoms Reported Neuro: reports: Headache, Tremors, Other (BLACK OUTS) Endocrine: reports: No Symptoms Reported Hematology: reports: No Symptoms Reported Psychiatric: reports: Orientated x3, Agitated (IIRITABLE), Anxious, Depressed Other Systems: Reviewed and Negative Patient History - Patient Medical History Hx Anemia: No Hx Asthma: No Hx Chronic Obstructive Pulmonary Disease (COPD): No Hx Cancer: No Hx Cardiac Disorders: No Hx Congestive Heart Failure: No Hx Hypertension: No Hx Hypercholesterolemia: No Hx Pacemaker: No HX Cerebrovascular Accident: No Hx Seizures: No Hx Dementia: No Hx Diabetes: No Hx Gastrointestinal Disorders: No Hx Liver Disease: No Hx Genitourinary Disorders: No Hx Sexually Transmitted Disorders: No Hx Renal Disease (ESRD): No Hx Thyroid Disease: No Hx Human Immunodeficiency Virus (HIV): No Hx Hepatitis C: No Hx Depression: No Hx Suicide Attempt: No Hx Bipolar Disorder: No Hx Schizophrenia: No Other Medical History: DENIES - Patient Surgical History Past Surgical History: No Hx Neurologic Surgery: No Hx Cataract Extraction: No Hx Cardiac Surgery: No Hx Lung Surgery: No Hx Breast Surgery: No Hx Breast Biopsy: No Hx Abdominal Surgery: No Hx Appendectomy: No Hx Cholecystectomy: No Hx Genitourinary Surgery: No Hx Section: No Hx Orthopedic Surgery: No Anesthesia Reaction: No - PPD History Previous Implant?: Yes Documented Results: Negative w/proof Implanted On Prior R Admission?: Yes Date: 09/20/18 Results: 0MM PPD to be Administered?: Yes - Smoking Cessation Smoking history: Current every day smoker Have you smoked in the past 12 months: Yes Aproximately how many cigarettes per day: 10 Cigars Per Day: 0 Hx Chewing Tobacco Use: No Initiated information on smoking cessation: Yes 'Breaking Loose' booklet given: 02/04/19 - Substance & Tx. History Hx Alcohol Use: Yes Hx Substance Use: Yes Substance Use Type: Alcohol, Cocaine, Heroin ("ONCE IN A WHILE"), Marijuana Hx Substance Use Treatment: Yes ([facility]) - Substances abused Alcohol Substance route: Oral Frequency: Daily Amount used: 7 CANS 24OZ BEER Age of first use: 17 Date of last use: 02/04/19 Cocaine Other (specify): crack Substance route: Smoking Frequency: Daily Amount used: 1gm Age of first use: 26 Date of last use: 02/03/19 Marijuana/Hashish Substance route: Smoking Frequency: Daily Amount used: 6 BLUNT Age of first use: 16 Date of last use: 02/03/19 Heroin Other (specify): SNIFF Frequency: 1-3 times last 30 days Amount used: 2 SNIFF Age of first use: 53 Date of last use: 02/04/19 Admission Physical Exam S - Vital Signs Vital Signs: Vital Signs - 24 hr 02/04/19 20:04 Temperature 98.2 F Pulse Rate 76 Respiratory 18 Rate Blood Pressure 124/77 - Physical General Appearance: Yes: Mild Distress, Tremorous, Irritable, Sweating, Anxious HEENTM: Yes: EOMI, Normocephalic, Normal Voice, CORA, Pharynx Normal, Other ( missing teeth) Respiratory: Yes: Chest Non-Tender, Lungs Clear, Normal Breath Sounds, No Respiratory Distress, No Accessory Muscle Use Neck: Yes: No masses,lesions,Nodules, Supple, Trachea in good position Breast: Yes: Breast Exam Deferred Cardiology: Yes: Regular Rhythm, Regular Rate, S1, S2, Murmur Abdominal: Yes: Normal Bowel Sounds, Non Tender, Soft Genitourinary: Yes: Other (no c/o offered) Back: Yes: Normal Inspection Musculoskeletal: Yes: full range of Motion, Gait Steady Extremities: Yes: Normal Capillary Refill, Normal Range of Motion, Non-Tender, Tremors, Other (fingers swollen non pitting) Neurological: Yes: Fully Oriented, Alert, Motor Strength 5/5, Depressed Affect Integumentary: Yes: Dry, Warm, Other (ble- knee with blisters) Lymphatic: Yes: Within Normal Limits - Diagnostic (1) Status post fall Current Visit: Yes Status: Acute (2) Opioid abuse, episodic use Current Visit: Yes Status: Acute (3) Alcohol dependence with uncomplicated withdrawal Current Visit: Yes Status: Acute (4) Cannabis dependence, uncomplicated Current Visit: Yes Status: Acute (5) Cocaine dependence, uncomplicated Current Visit: Yes Status: Acute (6) Substance-induced sleep disorder Current Visit: Yes Status: Suspected (7) Nicotine dependence Current Visit: Yes Status: Chronic Qualifiers: Nicotine product type: cigarettes Substance use status: uncomplicated Qualified Code(s): F17.210 - Nicotine dependence, cigarettes, uncomplicated (8) Poor dentition Current Visit: Yes Status: Chronic (9) Homeless Current Visit: Yes Status: Suspected Cleared for Admission S - Detox or Rehab [facility] Level of Care: Medically Managed Detox Regimen/Protocol: Librium Claeared for Rehab Admission: No Breathalyzer - Breathalyzer Breathalyzer: 0 Urine Drug Screen - Test Device Lot number: [id number] Expiration date: 10/05/20 - Control Is test valid?: Yes - Results Drug screen NEGATIVE: Yes Urine drug screen results: THC-Marijuana, CICI-Cocaine, MOP-Opiates Inpatient Rehab Admission - Rehab Decision to Admit Inpatient rehab admission?: No
[2019-02-04] MEDS ORDERED: IBUPROFEN 400 MG TABLET (FP) PO PRN (21:57)
[2019-02-04] MEDS ORDERED: chlordiazePOXIDE HCL 25 MG CAPSULE PO PRN (21:57)
[2019-02-04] MEDS ORDERED: BISMUTH SUBSALICYLATE 524 MG/30 ML UD PO PRN (21:57)
[2019-02-04] MEDS ORDERED: hydrOXYzine PAMOATE 25 MG CAPSULE (FP) PO PRN (21:57)
[2019-02-04] MEDS ORDERED: P-EPHED 60MG/TRIPROLIDI 2.5MG TABLET PO PRN (21:57)
[2019-02-04] MEDS ORDERED: ONDANSETRON *ODT* 4 MG TABLET SL PRN (21:57)
[2019-02-04] MEDS ORDERED: MAGNESIUM CITRATE 300 ML BOTTLE PO PRN (21:57)
[2019-02-04] MEDS ORDERED: guaiFENesin 200 MG/10 ML 10 ML UNIT-DOSE CUPS PO PRN (21:57)
[2019-02-04] MEDS ORDERED: MAG HYDROX/AL HYDROX/SIMETH 30 ML UNIT-DOSE CUP PO PRN (21:57)
[2019-02-04] MEDS ORDERED: METHOCARBAMOL 500 MG TABLET PO PRN (21:57)
[2019-02-04] MEDS ORDERED: DICYCLOMINE HCL 10 MG CAPSULE PO PRN (21:57)
[2019-02-04] MEDS ORDERED: ACETAMINOPHEN 325 MG TABLET (FP) PO PRN ×2 (21:57)
[2019-02-04] MEDS ORDERED: MENTHOL/PHENOL 1 EACH UD MM PRN (21:57)
[2019-02-04] MEDS: THIAMINE HCL 100 MG TABLET (FP) PO SCH (23:01)
[2019-02-04] MEDS: chlordiazePOXIDE HCL 25 MG CAPSULE PO SCH (23:01)
[2019-02-05] MEDS: chlordiazePOXIDE HCL 25 MG CAPSULE PO SCH ×4 (07:18→22:25)
[2019-02-05] MEDS: NICOTINE 14 MG/24 HOURS TOPICAL PATCH TD SCH (10:53)
[2019-02-05] MEDS: PRENATAL VITAMINS W/ FOLIC ACID TABLET (FP) PO SCH (10:55)
[2019-02-05] MEDS: MAGNESIUM HYDROX 2400MG/30ML ORAL SUSPENSION 30 ML CUP PO PRN (10:58)
[2019-02-05 12:17] LABS: HEMATOCRIT 39.4 % (35.4-49); HEMOGLOBIN 13.3 GM/dL (11.7-16.9); MCH 31.3 pg (25.7-33.7); MCHC 33.9 g/dl (32.0-35.9); MEAN CELL VOLUME 92.2 fl (80-96); MEAN PLT VOLUME 8.4 fl (7.5-11.1); PLATELET COUNT 250 K/MM3 (134-434); RBC 4.27 M/mm3 (4.00-5.60); RDW 15.2 % (11.9-15.9); WHITE BLOOD COUNT 3.7 K/mm3 (4.0-10.0)
--- NOTE | 2019-02-05 12:36 | PN ---
S CIWA - CIWA Score Nausea/Vomitin-Mild Nausea/No Vomiting Muscle Tremors: 2 Anxiety: 2 Agitation: 2 Paroxysmal Sweats: 1-Minimal Palms Moist Orientation: 0-Oriented Tacttile Disturbances: 1-Very Mild Itch/Numbness Auditory Disturbances: 0-None Visual Disturbances: 0-None Headache: 1-Very Mild CIWA-Ar Total Score: 10 BHS Progress Note (SOAP) Subjective: alert,irritable,anxious,interrupted sleep,tremor Objective: 02/05/19 12:35 Vital Signs Temperature 98.2 F 02/05/19 09:00 Pulse Rate 72 02/05/19 11:00 Respiratory Rate 18 02/05/19 11:00 Blood Pressure 128/64 02/05/19 11:00 O2 Sat by Pulse Oximetry (%) 02/05/19 08:45 WBC 3.7 L RBC 4.27 Hgb 13.3 Hct 39.4 MCV 92.2 MCHC 33.9 RDW 15.2 Plt Count 250 labs pending Assessment: 02/05/19 12:36 withdrawal symptom Plan: continue detox,librium regimen
[2019-02-05 12:52] LABS: ALBUMIN 3.2 g/dl (3.4-5.0); BILIRUBIN,TOTAL 0.4 mg/dL (0.2-1); BLOOD UREA NITROGEN 14.2 mg/dL (7-18); CALCIUM 8.7 mg/dL (8.5-10.1); CREATININE 1.2 mg/dL (0.55-1.3); POTASSIUM 4.4 mmol/L (3.5-5.1)
[2019-02-05] MEDS: THIAMINE HCL 100 MG TABLET (FP) PO SCH (22:25)
[2019-02-05] MEDS: MELATONIN 5 MG TABLETS PO PRN (22:25)
[2019-02-06] MEDS: chlordiazePOXIDE HCL 25 MG CAPSULE PO SCH ×4 (06:28→22:12)
[2019-02-06] MEDS: NICOTINE 14 MG/24 HOURS TOPICAL PATCH TD SCH (11:03)
[2019-02-06] MEDS: PRENATAL VITAMINS W/ FOLIC ACID TABLET (FP) PO SCH (11:05)
--- NOTE | 2019-02-06 11:50 | PN ---
[facility] CIWA - CIWA Score Nausea/Vomitin-No Nausea/No Vomiting Muscle Tremors: 1-None Visible, but [place] Anxiety: 2 Agitation: 2 Paroxysmal Sweats: No Perspiration Orientation: 0-Oriented Tacttile Disturbances: 1-Very Mild Itch/Numbness Auditory Disturbances: 0-None Visual Disturbances: 0-None Headache: 1-Very Mild CIWA-Ar Total Score: 7 BHS Progress Note (SOAP) Subjective: alert,irritable,pain in the body ,anxious,interrupted sleep, Objective: 02/06/19 11:48 Vital Signs Temperature 98.1 F 02/06/19 09:19 Pulse Rate 70 02/06/19 09:19 Respiratory Rate 18 02/06/19 09:19 Blood Pressure 111/56 L 02/06/19 09:19 O2 Sat by Pulse Oximetry (%) 02/06/19 11:49 Laboratory Last Values WBC 3.7 K/mm3 (4.0-10.0) L 02/05/19 08:45 RBC 4.27 M/mm3 (4.00-5.60) 02/05/19 08:45 Hgb 13.3 GM/dL (11.7-16.9) 02/05/19 08:45 Hct 39.4 % (35.4-49) 02/05/19 08:45 MCV 92.2 fl (80-96) 02/05/19 08:45 MCH 31.3 pg (25.7-33.7) 02/05/19 08:45 MCHC 33.9 g/dl (32.0-35.9) 02/05/19 08:45 RDW 15.2 % (11.9-15.9) 02/05/19 08:45 Plt Count 250 K/MM3 (134-434) 02/05/19 08:45 MPV 8.4 fl (7.5-11.1) 02/05/19 08:45 Sodium 143 mmol/L (136-145) 02/05/19 08:45 Potassium 4.4 mmol/L (3.5-5.1) 02/05/19 08:45 Chloride 110 mmol/L (98-107) H 02/05/19 08:45 Carbon Dioxide 27 mmol/L (21-32) 02/05/19 08:45 Anion Gap 7 MMOL/L (8-16) L 02/05/19 08:45 BUN 14.2 mg/dL (7-18) 02/05/19 08:45 Creatinine 1.2 mg/dL (0.55-1.3) 02/05/19 08:45 Est GFR (CKD-EPI)AfAm 80.66 02/05/19 08:45 Est GFR (CKD-EPI)NonAf 69.59 02/05/19 08:45 Random Glucose 90 mg/dL (74-106) 02/05/19 08:45 Calcium 8.7 mg/dL (8.5-10.1) 02/05/19 08:45 Total Bilirubin 0.4 mg/dL (0.2-1) 02/05/19 08:45 AST 14 U/L (15-37) L 02/05/19 08:45 ALT 21 U/L (13-61) 02/05/19 08:45 Alkaline Phosphatase 70 U/L (45-117) 02/05/19 08:45 Total Protein 6.0 g/dl (6.4-8.2) L 02/05/19 08:45 Albumin 3.2 g/dl (3.4-5.0) L 02/05/19 08:45 RPR Titer Nonreactive (NONREACTIVE) 02/05/19 08:45 Assessment: 02/06/19 11:49 withdrawal symptom Plan: continue detox,librium regimen
[2019-02-06] MEDS: THIAMINE HCL 100 MG TABLET (FP) PO SCH (22:11)
[2019-02-06] MEDS: MELATONIN 5 MG TABLETS PO PRN (22:11)
[2019-02-07] MEDS ORDERED: chlordiazePOXIDE HCL 10 MG CAPSULE PO PRN
[2019-02-07] MEDS: chlordiazePOXIDE HCL 10 MG CAPSULE PO SCH ×4 (07:29→22:13)
[2019-02-07] MEDS: NICOTINE 14 MG/24 HOURS TOPICAL PATCH TD SCH (10:07)
[2019-02-07] MEDS: PRENATAL VITAMINS W/ FOLIC ACID TABLET (FP) PO SCH (10:08)
[2019-02-07] MEDS: MAGNESIUM HYDROX 2400MG/30ML ORAL SUSPENSION 30 ML CUP PO PRN (10:10)
--- NOTE | 2019-02-07 10:14 | PN ---
S CIWA - CIWA Score Nausea/Vomitin Muscle Tremors: 2 Anxiety: 3 Agitation: 0-Normal Activity Paroxysmal Sweats: 2 Orientation: 0-Oriented Tacttile Disturbances: 1-Very Mild Itch/Numbness Auditory Disturbances: 0-None Visual Disturbances: 0-None Headache: 1-Very Mild CIWA-Ar Total Score: 11 S Progress Note (SOAP) Subjective: c/o of interrupted sleep, chills, sweats, anxious Objective: 02/07/19 10:13 Vital Signs Temperature 97.7 F 02/07/19 07:09 Pulse Rate 75 02/07/19 07:09 Respiratory Rate 18 02/07/19 07:09 Blood Pressure 113/71 02/07/19 07:09 O2 Sat by Pulse Oximetry (%) Laboratory Last Values WBC 3.7 K/mm3 (4.0-10.0) L 02/05/19 08:45 RBC 4.27 M/mm3 (4.00-5.60) 02/05/19 08:45 Hgb 13.3 GM/dL (11.7-16.9) 02/05/19 08:45 Hct 39.4 % (35.4-49) 02/05/19 08:45 MCV 92.2 fl (80-96) 02/05/19 08:45 MCH 31.3 pg (25.7-33.7) 02/05/19 08:45 MCHC 33.9 g/dl (32.0-35.9) 02/05/19 08:45 RDW 15.2 % (11.9-15.9) 02/05/19 08:45 Plt Count 250 K/MM3 (134-434) 02/05/19 08:45 MPV 8.4 fl (7.5-11.1) 02/05/19 08:45 Sodium 143 mmol/L (136-145) 02/05/19 08:45 Potassium 4.4 mmol/L (3.5-5.1) 02/05/19 08:45 Chloride 110 mmol/L (98-107) H 02/05/19 08:45 Carbon Dioxide 27 mmol/L (21-32) 02/05/19 08:45 Anion Gap 7 MMOL/L (8-16) L 02/05/19 08:45 BUN 14.2 mg/dL (7-18) 02/05/19 08:45 Creatinine 1.2 mg/dL (0.55-1.3) 02/05/19 08:45 Est GFR (CKD-EPI)AfAm 80.66 02/05/19 08:45 Est GFR (CKD-EPI)NonAf 69.59 02/05/19 08:45 Random Glucose 90 mg/dL (74-106) 02/05/19 08:45 Calcium 8.7 mg/dL (8.5-10.1) 02/05/19 08:45 Total Bilirubin 0.4 mg/dL (0.2-1) 02/05/19 08:45 AST 14 U/L (15-37) L 02/05/19 08:45 ALT 21 U/L (13-61) 02/05/19 08:45 Alkaline Phosphatase 70 U/L (45-117) 02/05/19 08:45 Total Protein 6.0 g/dl (6.4-8.2) L 02/05/19 08:45 Albumin 3.2 g/dl (3.4-5.0) L 02/05/19 08:45 RPR Titer Nonreactive (NONREACTIVE) 02/05/19 08:45 labs reviewed Assessment: 02/07/19 15:34 Aox3 no acute distress full ROM ambulating in the unit withdrawal sx Plan: increase PO fluids continue detox continue to monitor
[2019-02-07] MEDS: THIAMINE HCL 100 MG TABLET (FP) PO SCH (21:57)
[2019-02-07] MEDS: MELATONIN 5 MG TABLETS PO PRN (21:57)
[2019-02-07] MEDS: NICOTINE POLACRILEX 2 MG GUM BUC PRN (22:22)
[2019-02-08] MEDS: chlordiazePOXIDE HCL 10 MG CAPSULE PO SCH ×2 (06:01→17:14)
--- NOTE | 2019-02-08 07:42 | CONSULT ---
[facility] Psychiatric Consult - Data Date of interview: 02/08/19 Admission source: Self-referred Identifying data: Mr Fonseca is a 53 years old single Black, father of a 29 years old daughter, unemployed receiving food stamp, homeless seeking detox treatment alcohol, cocaine and cannabis Substance Abuse History: Reports history of alcohol, cocaine and marijuana use. Refer to addiction counselor's summary fir further information Medical History: Unremarkable. Smokes at least 5 cigarettes daily Psychiatric History: Denies history of previous psychiatric treatment. However, reports sleeping poorly. During most recent admission to this facility in January 2019, he was seen by automobile and property underwriter and he was prescribed Melatonin 5 mg po HS prn for insomnia. Requests that medication dosage be increased Physical/Sexual Abuse/Trauma History: Denies history of emotional, physical or sexual abuse as well as DV relationship Additional Comment: Reports history of mutiple previous arrests including 2 felony convictions. Denies being on parole/probation Mental Status Exam - Mental Status Exam Alert and Oriented to: Time, Place, Person Cognitive Function: Fair Patient Appearance: Disheveled Mood: Depressed (mildly) Affect: Appropriate Patient Behavior: Cooperative Speech Pattern: Clear Voice Loudness: Normal Thought Process: Intact, Goal Oriented Hallucinations: Denies Suicidal Ideation: Denies Homicidal Ideation: Denies Insight/Judgement: Poor Sleep: Poorly Appetite: Fair Muscle strength/Tone: Normal Gait/Station: Normal Psychiatric Findings - Problem List ([place] 1, 2,3) (1) Substance induced mood disorder Current Visit: Yes Status: Acute (2) Substance-induced sleep disorder Current Visit: Yes Status: Acute (3) Alcohol dependence with uncomplicated withdrawal Current Visit: Yes Status: Acute (4) Cocaine dependence, uncomplicated Current Visit: Yes Status: Acute (5) Cannabis dependence, uncomplicated Current Visit: Yes Status: Acute (6) Opioid abuse, episodic use Current Visit: Yes Status: Acute (7) Nicotine dependence Current Visit: Yes Status: Chronic Qualifiers: Nicotine product type: cigarettes Substance use status: uncomplicated Qualified Code(s): F17.210 - Nicotine dependence, cigarettes, uncomplicated (8) Poor dentition Current Visit: Yes Status: Chronic - Initial Treatment Plan Initial Treatment Plan: 1) Start Melatonin 10 mg po HS prn for insomnia. 2) Continue inpatient detoxification
[2019-02-08] MEDS ORDERED: MELATONIN 5 MG TABLETS PO PRN (09:43)
[2019-02-08] MEDS: NICOTINE 14 MG/24 HOURS TOPICAL PATCH TD SCH (09:56)
[2019-02-08] MEDS: PRENATAL VITAMINS W/ FOLIC ACID TABLET (FP) PO SCH (09:56)
[2019-02-08] MEDS: NICOTINE POLACRILEX 2 MG GUM BUC PRN (09:57)
--- NOTE | 2019-02-08 12:00 | PN ---
S CIWA - CIWA Score Nausea/Vomitin-No Nausea/No Vomiting Muscle Tremors: 2 Anxiety: 2 Agitation: 1-Slight > Activity Paroxysmal Sweats: No Perspiration Orientation: 0-Oriented Tacttile Disturbances: 0-None Auditory Disturbances: 0-None Visual Disturbances: 0-None Headache: 0-None Present CIWA-Ar Total Score: 5 BHS Progress Note (SOAP) Subjective: sweats anxiety Objective: 02/08/19 12:00 Vital Signs Temperature 97.9 F 02/08/19 10:16 Pulse Rate 98 H 02/08/19 10:16 Respiratory Rate 18 02/08/19 10:16 Blood Pressure 129/78 02/08/19 10:16 O2 Sat by Pulse Oximetry (%) aaox3 ambulating no acute distress Assessment: 02/08/19 12:00 mild withdrawals Plan: continue detox d/c in am
[2019-02-08] MEDS: THIAMINE HCL 100 MG TABLET (FP) PO SCH (22:06)
[2019-02-09] MEDS ORDERED: chlordiazePOXIDE HCL 10 MG CAPSULE PO ONE (05:00)
[2019-02-09 06:29] VITALS: TEMP 97.7
[2019-02-09 09:42] VITALS: BP 120/64; PULSE 82
--- NOTE | 2019-02-09 13:07 | DS ---
[facility] Detox Discharge Summary Admission Date: 02/04/19 Discharge Date: 02/09/19 - History Present History: Alcohol Dependence, Cannabis Dependence, Cocaine Dependence, Opioid Dependence Additional Comments: Pt is medically cleared and discharge today, pt completed his detox protocol. Pt is encouraged to follow-up with an outpatient CD program and also to follow- up with his pmd. Pt verbalized understanding. pt is alert and oriented x3 and in no acute respiratory distress. Pertinent Past History: H/o heroin, cocaine, alcohol, and cannabis use disorder. - Physical Exam Results Vital Signs: Vital Signs Temperature 97.7 F 02/09/19 09:42 Pulse Rate 82 02/09/19 09:42 Respiratory Rate 18 02/09/19 09:42 Blood Pressure 120/64 02/09/19 09:42 O2 Sat by Pulse Oximetry (%) Vital Signs 02/09/19 02/09/19 06:00 09:42 Temperature 97.7 F 97.7 F Pulse Rate 63 82 Respiratory 18 18 Rate Blood Pressure 116/60 120/64 Lab Results WBC 3.7 K/mm3 (4.0-10.0) L 02/05/19 08:45 RBC 4.27 M/mm3 (4.00-5.60) 02/05/19 08:45 Hgb 13.3 GM/dL (11.7-16.9) 02/05/19 08:45 Hct 39.4 % (35.4-49) 02/05/19 08:45 MCV 92.2 fl (80-96) 02/05/19 08:45 MCHC 33.9 g/dl (32.0-35.9) 02/05/19 08:45 RDW 15.2 % (11.9-15.9) 02/05/19 08:45 Plt Count 250 K/MM3 (134-434) 02/05/19 08:45 Sodium 143 mmol/L (136-145) 02/05/19 08:45 Potassium 4.4 mmol/L (3.5-5.1) 02/05/19 08:45 Chloride 110 mmol/L (98-107) H 02/05/19 08:45 Carbon Dioxide 27 mmol/L (21-32) 02/05/19 08:45 Anion Gap 7 MMOL/L (8-16) L 02/05/19 08:45 BUN 14.2 mg/dL (7-18) 02/05/19 08:45 Creatinine 1.2 mg/dL (0.55-1.3) 02/05/19 08:45 Random Glucose 90 mg/dL (74-106) 02/05/19 08:45 Calcium 8.7 mg/dL (8.5-10.1) 02/05/19 08:45 Labs noted. Pertinent Admission Physical Exam Findings: withdrawal symptoms. - Treatment Hospital Course: Detox Protocol Followed, Detoxed Safely, Responded well, Discharged Condition Good - Medication Discharge Medications: Ambulatory Orders NK [No Known Home Medication] 07/07/16 - Diagnosis (1) Alcohol dependence Status: Acute Qualifiers: Substance use status: uncomplicated Qualified Code(s): F10.20 - Alcohol dependence, uncomplicated (2) Cannabis dependence, uncomplicated Status: Acute (3) Cocaine dependence, uncomplicated Status: Acute (4) Opioid abuse, episodic use Status: Acute (5) Nicotine dependence Status: Chronic Qualifiers: Nicotine product type: cigarettes Substance use status: uncomplicated Qualified Code(s): F17.210 - Nicotine dependence, cigarettes, uncomplicated - AMA Did Patient Leave Against Medical Advice: No BHS CIWA - CIWA Score Nausea/Vomitin-No Nausea/No Vomiting Muscle Tremors: None Anxiety: 1-Mildly Anxious Agitation: 0-Normal Activity Paroxysmal Sweats: 1-Minimal Palms Moist Orientation: 0-Oriented Tacttile Disturbances: 0-None Auditory Disturbances: 0-None Visual Disturbances: 0-None Headache: 0-None Present CIWA-Ar Total Score: 2
== END 2019-02-09 10:15 | disposition home or self-care (01) | DRG 773 ==
LOC: YASAS 15:45 → Y6N 22:35
PROVIDERS: ADMIT Surgery; ATTEND Surgery
PROC: HZ2ZZZZ Detoxification Services for Substance Abuse Treatment (ICD-10-PCS; principal; 2019-02-04)
DX: F10.230 Alcohol dependence with withdrawal, uncomplicated (principal); F11.10 Opioid abuse, uncomplicated; F14.20 Cocaine dependence, uncomplicated; F12.20 Cannabis dependence, uncomplicated; F17.210 Nicotine dependence, cigarettes, uncomplicated; F19.24 Other psychoactive substance dependence with psychoactive substance-induced mood disorder; F19.282 Other psychoactive substance dependence with psychoactive substance-induced sleep disorder; K08.89 Other specified disorders of teeth and supporting structures; K02.9 Dental caries, unspecified; Z91.81 History of falling; Z59.0 Homelessness
CPT/HCPCS: 36415; 80053; 85027; 86593

== ENCOUNTER 2019-03-12 14:01 | Inpatient (IN) | payer OTHER ==
[2019-03-12 15:42] VITALS: BMI 21.9
--- NOTE | 2019-03-12 18:11 | HP ---
CIWA Score Nausea/Vomitin-No Nausea/No Vomiting Muscle Tremors: None Anxiety: 4-Mod. Anxious/Guarded Agitation: 1-Slight > Activity Paroxysmal Sweats: 2 Orientation: 1-Uncertain about Date Tacttile Disturbances: 0-None Auditory Disturbances: 0-None Visual Disturbances: 0-None Headache: 2-Mild CIWA-Ar Total Score: 10 - Admission Criteria OASAS Guidelines: Admission for Medically Managed Detox: Requires at least one of the followin. CIWA greater than 12 2. Seizures within the past 24 hours 3. Delirium tremens within the past 24 hours 4. Hallucinations within the past 24 hours 5. Acute intervention needed for co occurring medical disorder 6. Acute intervention needed for co occurring psychiatric disorder 7. Severe withdrawal that cannot be handled at a lower level of care (continued vomiting, continued diarrhea, abnormal vital signs) requiring intravenous medication and/or fluids 8. Admitting History and Physical - Smoking History Smoking history: Current every day smoker Have you smoked in the past 12 months: Yes Aproximately how many cigarettes per day: 10 - Alcohol/Substance Use Hx Alcohol Use: Yes Admission ROS [facility] Allergies/Adverse Reactions: Allergies Allergy/AdvReac Type Severity Reaction Status Date / Time No Known Allergies Allergy Verified 03/12/19 15:36 History of Present Illness: pt here requesting detox from etoh use , reports 6- 7 beers/day , relapsed 1-2 days after d/c from this facility , latest use early today , starts drinking in the mornings upon awakening, reports tremors , denies seizures, one time blackout, denies falls while intoxicated utox + mily , thc cocaine : daily via inhalation , average 0.5 gr/day or every other day denies IVDU , since age 25 cannabis use : 3-4 blunts/day since age 17 tobacco : 7-8 cigs/day since age 22 PMHX : denies PSHx : denies PSYch :denies Meds : denies Allergies : denies SHx : homeless , unemployed Exam Limitations: No Limitations - Ebola screening Have you traveled outside of the country in the last 21 days: No Have you had contact with anyone from an Ebola affected area: No Do you have a fever: No - Review of Systems Constitutional: No Symptoms Reported EENT: reports: No Symptoms Reported Respiratory: reports: No Symptoms reported Cardiac: reports: No Symptoms Reported GI: reports: Constipated, Poor Appetite : reports: No Symptoms Reported Musculoskeletal: reports: Joint Pain (chronic knee pain) Integumentary: reports: No Symptoms Reported Neuro: reports: Headache Endocrine: reports: No Symptoms Reported Psychiatric: reports: Orientated x3, Anxious Patient History - Patient Medical History Hx Anemia: No Hx Asthma: No Hx Chronic Obstructive Pulmonary Disease (COPD): No Hx Cancer: No Hx Cardiac Disorders: No Hx Congestive Heart Failure: No Hx Hypertension: No Hx Hypercholesterolemia: No Hx Pacemaker: No HX Cerebrovascular Accident: No Hx Seizures: No Hx Dementia: No Hx Diabetes: No Hx Gastrointestinal Disorders: No Hx Liver Disease: No Hx Genitourinary Disorders: No Hx Sexually Transmitted Disorders: No Hx Renal Disease (ESRD): No Hx Thyroid Disease: No Hx Human Immunodeficiency Virus (HIV): No Hx Hepatitis C: No Hx Depression: No Hx Suicide Attempt: No Hx Bipolar Disorder: No Hx Schizophrenia: No - Patient Surgical History Past Surgical History: No Hx Neurologic Surgery: No Hx Cataract Extraction: No Hx Cardiac Surgery: No Hx Lung Surgery: No Hx Breast Surgery: No Hx Breast Biopsy: No Hx Abdominal Surgery: No Hx Appendectomy: No Hx Cholecystectomy: No Hx Genitourinary Surgery: No Hx Section: No Hx Orthopedic Surgery: No Anesthesia Reaction: No - PPD History Date: 09/20/18 Results: 0MM - Smoking Cessation Smoking history: Current every day smoker Have you smoked in the past 12 months: Yes Aproximately how many cigarettes per day: 10 Cigars Per Day: 0 Hx Chewing Tobacco Use: No Initiated information on smoking cessation: Yes 'Breaking Loose' booklet given: 03/12/19 - Substances abused Alcohol Substance route: Oral Frequency: Daily Amount used: 7 CANS 24OZ BEER Age of first use: 17 Date of last use: 03/11/19 Cocaine Other (specify): crack Substance route: Smoking Frequency: Daily Amount used: 1gm Age of first use: 26 Date of last use: 03/11/19 Marijuana/Hashish Substance route: Smoking Frequency: Daily Amount used: 6 BLUNT Age of first use: 16 Date of last use: 03/12/19 Heroin Other (specify): SNIFF Frequency: 1-3 times last 30 days Amount used: 2 SNIFF Age of first use: 53 Date of last use: 02/04/19 Admission Physical Exam BHS - Vital Signs Vital Signs: Vital Signs - 24 hr 03/12/19 15:33 Temperature 98.6 F Pulse Rate 89 Respiratory 18 Rate Blood Pressure 120/76 - Physical General Appearance: Yes: Mild Distress, Anxious HEENTM: Yes: EOMI, Hearing grossly Normal, Normocephalic, Normal Voice Respiratory: Yes: Chest Non-Tender, Lungs Clear, Normal Breath Sounds, No Respiratory Distress, No Accessory Muscle Use Neck: Yes: No masses,lesions,Nodules, Trachea in good position Cardiology: Yes: Regular Rhythm, Regular Rate, S1, S2 Abdominal: Yes: Non Tender, Soft Musculoskeletal: Yes: Gait Steady Extremities: Yes: Normal Range of Motion, Non-Tender Neurological: Yes: Fully Oriented, Alert, Motor Strength 5/5, Normal Mood/Affect Integumentary: Yes: Warm - Diagnostic (1) Alcohol dependence with uncomplicated withdrawal Current Visit: Yes Status: Acute (2) Cannabis dependence, uncomplicated Current Visit: Yes Status: Chronic (3) Cocaine dependence, uncomplicated Current Visit: Yes Status: Chronic (4) Nicotine dependence Current Visit: Yes Status: Chronic Qualifiers: Nicotine product type: cigarettes Breathalyzer - Breathalyzer Breathalyzer: 0 Urine Drug Screen - Test Device Lot number: [id number] Expiration date: 11/04/20 - Control Is test valid?: Yes - Results Drug screen NEGATIVE: No Urine drug screen results: THC-Marijuana, MILY-Cocaine, BUP-Suboxone Inpatient Rehab Admission - Rehab Decision to Admit Inpatient rehab admission?: No
[2019-03-12] MEDS ORDERED: hydrOXYzine PAMOATE 25 MG CAPSULE (FP) PO PRN (18:15)
[2019-03-12] MEDS ORDERED: MAGNESIUM CITRATE 300 ML BOTTLE PO PRN (18:15)
[2019-03-12] MEDS ORDERED: MENTHOL/PHENOL 1 EACH UD MM PRN (18:15)
[2019-03-12] MEDS ORDERED: METHOCARBAMOL 500 MG TABLET PO PRN (18:15)
[2019-03-12] MEDS ORDERED: IBUPROFEN 400 MG TABLET (FP) PO PRN (18:15)
[2019-03-12] MEDS ORDERED: MAGNESIUM HYDROX 2400MG/30ML ORAL SUSPENSION 30 ML CUP PO PRN (18:15)
[2019-03-12] MEDS ORDERED: MAG HYDROX/AL HYDROX/SIMETH 30 ML UNIT-DOSE CUP PO PRN (18:15)
[2019-03-12] MEDS ORDERED: ACETAMINOPHEN 325 MG TABLET (FP) PO PRN ×2 (18:15)
[2019-03-12] MEDS ORDERED: BISMUTH SUBSALICYLATE 524 MG/30 ML UD PO PRN (18:15)
[2019-03-12] MEDS ORDERED: diazePAM 5 MG TABLET PO PRN (18:16)
[2019-03-12] MEDS ORDERED: NICOTINE POLACRILEX 2 MG GUM BUC PRN (18:17)
[2019-03-12] MEDS: diazePAM 5 MG TABLET PO SCH (22:31)
[2019-03-12] MEDS: THIAMINE HCL 100 MG TABLET (FP) PO SCH (22:31)
[2019-03-12] MEDS: MELATONIN 5 MG TABLETS PO PRN (22:31)
[2019-03-13] MEDS: diazePAM 5 MG TABLET PO SCH ×3 (06:20→22:18)
[2019-03-13] MEDS: PRENATAL VITAMINS W/ FOLIC ACID TABLET (FP) PO SCH (10:49)
[2019-03-13 10:57] LABS: ALBUMIN 3.2 g/dl (3.4-5.0); BILIRUBIN,TOTAL 0.4 mg/dL (0.2-1); BLOOD UREA NITROGEN 13.6 mg/dL (7-18); CALCIUM 8.6 mg/dL (8.5-10.1); CREATININE 1.1 mg/dL (0.55-1.3); HEMATOCRIT 38.4 % (35.4-49); HEMOGLOBIN 13.1 GM/dL (11.7-16.9); MCH 31.1 pg (25.7-33.7); MCHC 34.1 g/dl (32.0-35.9); MEAN CELL VOLUME 91.1 fl (80-96); MEAN PLT VOLUME 8.7 fl (7.5-11.1); PLATELET COUNT 223 K/MM3 (134-434); POTASSIUM 4.3 mmol/L (3.5-5.1); RBC 4.22 M/mm3 (4.00-5.60); RDW 14.8 % (11.9-15.9); WHITE BLOOD COUNT 3.8 K/mm3 (4.0-10.0)
--- NOTE | 2019-03-13 14:01 | PN ---
S CIWA - CIWA Score Nausea/Vomitin-Mild Nausea/No Vomiting Muscle Tremors: 2 Anxiety: 2 Agitation: 2 Paroxysmal Sweats: No Perspiration Orientation: 0-Oriented Tacttile Disturbances: 1-Very Mild Itch/Numbness Auditory Disturbances: 0-None Visual Disturbances: 0-None Headache: 2-Mild CIWA-Ar Total Score: 10 S Progress Note (SOAP) Subjective: alert,irritable,anxious,interrupted sleep,tremor Objective: 03/13/19 14:00 Vital Signs Temperature 98.2 F 03/13/19 13:40 Pulse Rate 74 03/13/19 13:40 Respiratory Rate 18 03/13/19 13:40 Blood Pressure 112/63 03/13/19 13:40 O2 Sat by Pulse Oximetry (%) 03/13/19 14:00 Laboratory Last Values WBC 3.8 K/mm3 (4.0-10.0) L 03/13/19 08:15 RBC 4.22 M/mm3 (4.00-5.60) 03/13/19 08:15 Hgb 13.1 GM/dL (11.7-16.9) 03/13/19 08:15 Hct 38.4 % (35.4-49) 03/13/19 08:15 MCV 91.1 fl (80-96) 03/13/19 08:15 MCH 31.1 pg (25.7-33.7) 03/13/19 08:15 MCHC 34.1 g/dl (32.0-35.9) 03/13/19 08:15 RDW 14.8 % (11.9-15.9) 03/13/19 08:15 Plt Count 223 K/MM3 (134-434) 03/13/19 08:15 MPV 8.7 fl (7.5-11.1) 03/13/19 08:15 Sodium 140 mmol/L (136-145) 03/13/19 08:15 Potassium 4.3 mmol/L (3.5-5.1) 03/13/19 08:15 Chloride 107 mmol/L (98-107) 03/13/19 08:15 Carbon Dioxide 29 mmol/L (21-32) 03/13/19 08:15 Anion Gap 4 MMOL/L (8-16) L 03/13/19 08:15 BUN 13.6 mg/dL (7-18) 03/13/19 08:15 Creatinine 1.1 mg/dL (0.55-1.3) 03/13/19 08:15 Est GFR (CKD-EPI)AfAm 89.61 03/13/19 08:15 Est GFR (CKD-EPI)NonAf 77.32 03/13/19 08:15 Random Glucose 61 mg/dL (74-106) L 03/13/19 08:15 Calcium 8.6 mg/dL (8.5-10.1) 03/13/19 08:15 Total Bilirubin 0.4 mg/dL (0.2-1) 03/13/19 08:15 AST 11 U/L (15-37) L 03/13/19 08:15 ALT 20 U/L (13-61) 03/13/19 08:15 Alkaline Phosphatase 69 U/L (45-117) 03/13/19 08:15 Total Protein 6.0 g/dl (6.4-8.2) L 03/13/19 08:15 Albumin 3.2 g/dl (3.4-5.0) L 03/13/19 08:15 Assessment: 03/13/19 14:01 withdrawal symptom Plan: continue detox,valium regimen
--- NOTE | 2019-03-13 14:05 | PN ---
[facility] Progress Note Note: wbc 3,800,glucose 61,will repeat cbc and fasting glucose in am
[2019-03-13] MEDS: THIAMINE HCL 100 MG TABLET (FP) PO SCH (22:18)
[2019-03-13] MEDS: MELATONIN 5 MG TABLETS PO PRN (22:19)
[2019-03-14] MEDS: diazePAM 5 MG TABLET PO SCH ×2 (07:15→17:51)
--- NOTE | 2019-03-14 11:07 | PN ---
[facility] CIWA - CIWA Score Nausea/Vomitin-Mild Nausea/No Vomiting Muscle Tremors: 1-None Visible, but [place] Anxiety: 2 Agitation: 2 Paroxysmal Sweats: No Perspiration Orientation: 0-Oriented Tacttile Disturbances: 1-Very Mild Itch/Numbness Auditory Disturbances: 0-None Visual Disturbances: 0-None Headache: 0-None Present CIWA-Ar Total Score: 7 BHS Progress Note (SOAP) Subjective: alert,irritable,anxious,interrupted sleep, Objective: 03/14/19 11:06 Vital Signs Temperature 99.0 F 03/14/19 10:23 Pulse Rate 85 03/14/19 10:23 Respiratory Rate 18 03/14/19 10:23 Blood Pressure 117/67 03/14/19 10:23 O2 Sat by Pulse Oximetry (%) Laboratory Last Values WBC 3.8 K/mm3 (4.0-10.0) L 03/13/19 08:15 RBC 4.22 M/mm3 (4.00-5.60) 03/13/19 08:15 Hgb 13.1 GM/dL (11.7-16.9) 03/13/19 08:15 Hct 38.4 % (35.4-49) 03/13/19 08:15 MCV 91.1 fl (80-96) 03/13/19 08:15 MCH 31.1 pg (25.7-33.7) 03/13/19 08:15 MCHC 34.1 g/dl (32.0-35.9) 03/13/19 08:15 RDW 14.8 % (11.9-15.9) 03/13/19 08:15 Plt Count 223 K/MM3 (134-434) 03/13/19 08:15 MPV 8.7 fl (7.5-11.1) 03/13/19 08:15 Sodium 140 mmol/L (136-145) 03/13/19 08:15 Potassium 4.3 mmol/L (3.5-5.1) 03/13/19 08:15 Chloride 107 mmol/L (98-107) 03/13/19 08:15 Carbon Dioxide 29 mmol/L (21-32) 03/13/19 08:15 Anion Gap 4 MMOL/L (8-16) L 03/13/19 08:15 BUN 13.6 mg/dL (7-18) 03/13/19 08:15 Creatinine 1.1 mg/dL (0.55-1.3) 03/13/19 08:15 Est GFR (CKD-EPI)AfAm 89.61 03/13/19 08:15 Est GFR (CKD-EPI)NonAf 77.32 03/13/19 08:15 Random Glucose 61 mg/dL (74-106) L 03/13/19 08:15 Calcium 8.6 mg/dL (8.5-10.1) 03/13/19 08:15 Total Bilirubin 0.4 mg/dL (0.2-1) 03/13/19 08:15 AST 11 U/L (15-37) L 03/13/19 08:15 ALT 20 U/L (13-61) 03/13/19 08:15 Alkaline Phosphatase 69 U/L (45-117) 03/13/19 08:15 Total Protein 6.0 g/dl (6.4-8.2) L 03/13/19 08:15 Albumin 3.2 g/dl (3.4-5.0) L 03/13/19 08:15 Assessment: 03/14/19 11:06 withdrawal symptom Plan: continue detox valium regimen
[2019-03-14] MEDS: PRENATAL VITAMINS W/ FOLIC ACID TABLET (FP) PO SCH (11:28)
[2019-03-14 21:13] VITALS: BP 114/61; PULSE 77; TEMP 98.4
[2019-03-14] MEDS: THIAMINE HCL 100 MG TABLET (FP) PO SCH (22:40)
[2019-03-15] MEDS ORDERED: diazePAM 5 MG TABLET PO ONE (06:00)
--- NOTE | 2019-03-15 08:42 | DS ---
[facility] Detox Discharge Summary Admission Date: 03/12/19 Discharge Date: 03/15/19 - History Present History: Alcohol Dependence, Cannabis Dependence, Cocaine Dependence - Physical Exam Results Vital Signs: Vital Signs Temperature 98.4 F 03/14/19 21:11 Pulse Rate 77 03/14/19 21:11 Respiratory Rate 18 03/15/19 03:30 Blood Pressure 114/61 03/14/19 21:11 O2 Sat by Pulse Oximetry (%) Pertinent Admission Physical Exam Findings: pt arrived in withdrawals Vital Signs Temperature 98.4 F 03/14/19 21:11 Pulse Rate 77 03/14/19 21:11 Respiratory Rate 18 03/15/19 03:30 Blood Pressure 114/61 03/14/19 21:11 O2 Sat by Pulse Oximetry (%) Laboratory Tests 03/13/19 03/13/19 08:15 08:15 WBC 3.8 L RBC 4.22 Hgb 13.1 Hct 38.4 MCV 91.1 MCH 31.1 MCHC 34.1 RDW 14.8 Plt Count 223 MPV 8.7 Sodium 140 Potassium 4.3 Chloride 107 Carbon Dioxide 29 Anion Gap 4 L BUN 13.6 Creatinine 1.1 Est GFR (CKD-EPI)AfAm 89.61 Est GFR (CKD-EPI)NonAf 77.32 Random Glucose 61 L Calcium 8.6 Total Bilirubin 0.4 AST 11 L ALT 20 Alkaline Phosphatase 69 Total Protein 6.0 L Albumin 3.2 L pt is aaox3 ambulating no acute distress no s/s of withdrawals - Treatment Hospital Course: Detox Protocol Followed, Detoxed Safely, Responded well, Discharged Condition Good, Rehab Referral Accepted Patient has Accepted a Rehab Referral to: pt referred to [facility] inpatient rehab - Medication Discharge Medications: Ambulatory Orders NK [No Known Home Medication] 07/07/16 - Diagnosis (1) Alcohol dependence with uncomplicated withdrawal Current Visit: Yes Status: Chronic (2) Cannabis dependence, uncomplicated Current Visit: Yes Status: Chronic (3) Cocaine dependence, uncomplicated Current Visit: Yes Status: Chronic (4) Nicotine dependence Current Visit: Yes Status: Chronic Qualifiers: Nicotine product type: cigarettes Substance use status: uncomplicated Qualified Code(s): F17.210 - Nicotine dependence, cigarettes, uncomplicated (5) Substance induced mood disorder Current Visit: No Status: Acute (6) Substance-induced sleep disorder Current Visit: No Status: Acute (7) Poor dentition Current Visit: No Status: Chronic - AMA Did Patient Leave Against Medical Advice: No
[2019-03-15] MEDS: PRENATAL VITAMINS W/ FOLIC ACID TABLET (FP) PO SCH (09:11)
== END 2019-03-15 12:28 | disposition other institution (70) | DRG 774 ==
LOC: YASAS 14:01 → Y6N 18:41
PROVIDERS: ADMIT Allergy & Immunology; ATTEND Allergy & Immunology
PROC: HZ2ZZZZ Detoxification Services for Substance Abuse Treatment (ICD-10-PCS; principal; 2019-03-12)
DX: F10.230 Alcohol dependence with withdrawal, uncomplicated (principal); F14.20 Cocaine dependence, uncomplicated; F12.20 Cannabis dependence, uncomplicated; F17.210 Nicotine dependence, cigarettes, uncomplicated; F19.282 Other psychoactive substance dependence with psychoactive substance-induced sleep disorder; F19.24 Other psychoactive substance dependence with psychoactive substance-induced mood disorder; K08.89 Other specified disorders of teeth and supporting structures
CPT/HCPCS: 36415; 80053; 85027

== ENCOUNTER 2019-04-26 14:52 | Inpatient (IN) | payer OTHER ==
[2019-04-26 15:32] VITALS: BMI 24.8
--- NOTE | 2019-04-26 17:56 | HP ---
COWS - Scale Resting Pulse: 1= [place] 81-100 Sweatin= Chills/Flushing Restless Observation: 0= Sits Still Pupil Size: 0= Normal to Room Light Bone or Joint Aches: 1= Mild Discomfort Runny Nose/ Eye Tearin= None GI Upset > 30mins: 2= Nausea/Diarrhea Tremor Observation: 2= Slight Tremor Visible Yawning Observation: 0= None Anxiety or Irritability: 1=Feels Anxious/Irritable Goose Flesh Skin: 0=Smooth Skin COWS Score: 8 CIWA Score Nausea/Vomitin-Mild Nausea/No Vomiting Muscle Tremors: 4-Moderate,w/Arms Extend Anxiety: 2 Agitation: 0-Normal Activity Paroxysmal Sweats: 1-Minimal Palms Moist Orientation: 2-Disoriented Date<2 days Tacttile Disturbances: 0-None Auditory Disturbances: 0-None Visual Disturbances: 0-None Headache: 0-None Present CIWA-Ar Total Score: 10 - Admission Criteria OASAS Guidelines: Admission for Medically Managed Detox: Requires at least one of the followin. CIWA greater than 12 2. Seizures within the past 24 hours 3. Delirium tremens within the past 24 hours 4. Hallucinations within the past 24 hours 5. Acute intervention needed for co occurring medical disorder 6. Acute intervention needed for co occurring psychiatric disorder 7. Severe withdrawal that cannot be handled at a lower level of care (continued vomiting, continued diarrhea, abnormal vital signs) requiring intravenous medication and/or fluids 8. Admitting History and Physical - Admission Chief Complaint: alcohol detox History of Present Illness: 53 yo m w/ PMH polysubstance abuse comes in for assistance with detox from cocaine. Patient endorses sniffing and smoking 1 gram of cocaine daily since he was in his 20's, last use was today. Patient endorses daily Marijuana use of 2-6 blunts per day since the age of 17 with last use being this morning Patient endorses drinking 6-7 drinks per day every day since the age of 17. Patient states that he took one dose of Suboxone yesterday that he bought off the street to help combat his withdrawal symptoms. He denies ever being a part of a formal Suboxone program. Patient states that he is currently homeless but does have a mother who lives in the area. He is interested in intermission coordinator rehab. GILMER 0.0 on arrival Utox + THC, Cocaine, buprenorphine. CIWA 10 COWS 9 Patient meets criteria for Detox based off the fact that he has a CIWA of 10 and a comorbid use of heroin coupled with an escalating drug use pattern. History Source: Patient Limitations to Obtaining History: No Limitations - Smoking History Smoking history: Current every day smoker Have you smoked in the past 12 months: Yes Aproximately how many cigarettes per day: 10 - Alcohol/Substance Use Hx Alcohol Use: Yes Admission [facility] Allergies/Adverse Reactions: Allergies Allergy/AdvReac Type Severity Reaction Status Date / Time No Known Allergies Allergy Verified 04/26/19 15:23 - Ebola screening Have you traveled outside of the country in the last 21 days: No (N) Have you had contact with anyone from an Ebola affected area: No Do you have a fever: No - Review of Systems EENT: reports: No Symptoms Reported Respiratory: reports: No Symptoms reported Cardiac: reports: No Symptoms Reported GI: reports: Diarrhea, Nausea Patient History - Patient Medical History Hx Anemia: No Hx Asthma: No Hx Chronic Obstructive Pulmonary Disease (COPD): No Hx Cancer: No Hx Cardiac Disorders: No Hx Congestive Heart Failure: No Hx Hypertension: No Hx Hypercholesterolemia: No Hx Pacemaker: No HX Cerebrovascular Accident: No Hx Seizures: No Hx Dementia: No Hx Diabetes: No Hx Gastrointestinal Disorders: No Hx Liver Disease: No Hx Genitourinary Disorders: No Hx Sexually Transmitted Disorders: No Hx Renal Disease (ESRD): No Hx Thyroid Disease: No Hx Human Immunodeficiency Virus (HIV): No Hx Hepatitis C: No Hx Depression: No Hx Suicide Attempt: No Hx Bipolar Disorder: No Hx Schizophrenia: No - Patient Surgical History Past Surgical History: No Hx Neurologic Surgery: No Hx Cataract Extraction: No Hx Cardiac Surgery: No Hx Lung Surgery: No Hx Breast Surgery: No Hx Breast Biopsy: No Hx Abdominal Surgery: No Hx Appendectomy: No Hx Cholecystectomy: No Hx Genitourinary Surgery: No Hx Section: No Hx Orthopedic Surgery: No Anesthesia Reaction: No - PPD History Date: 09/20/18 Results: 0MM - Smoking Cessation Smoking history: Current every day smoker Have you smoked in the past 12 months: Yes Aproximately how many cigarettes per day: 10 Cigars Per Day: 0 Hx Chewing Tobacco Use: No Initiated information on smoking cessation: Yes 'Breaking Loose' booklet given: 04/26/19 - Substances abused Alcohol Substance route: Oral Frequency: Daily Amount used: 7 CANS 24OZ BEER Age of first use: 17 Date of last use: 04/26/19 Cocaine Other (specify): crack Substance route: Smoking Frequency: Daily Amount used: 1gm Age of first use: 26 Date of last use: 04/25/19 Marijuana/Hashish Substance route: Smoking Frequency: Daily Amount used: 6 BLUNT Age of first use: 16 Date of last use: 04/26/19 Heroin Other (specify): SNIFF Substance route: Inhalation Frequency: Daily Amount used: 1bag Age of first use: 53 Date of last use: 04/26/19 Admission Physical Exam BHS - Vital Signs Vital Signs: Vital Signs - 24 hr 04/26/19 15:20 Temperature 98.1 F Pulse Rate 88 Respiratory 18 Rate Blood Pressure 121/76 - Physical General Appearance: Yes: No Apparent Distress, Nourished HEENTM: Yes: EOMI, Normal ENT Inspection, CORA, Pharynx Normal Respiratory: Yes: Chest Non-Tender, Lungs Clear, Normal Breath Sounds, No Respiratory Distress, No Accessory Muscle Use Neck: Yes: Trachea in good position Cardiology: Yes: Regular Rhythm, Regular Rate, S1, S2. No: JVD, Murmur, Gallop/ S3, Gallop/S4 Abdominal: Yes: Normal Bowel Sounds, Non Tender, Flat, Soft Neurological: Yes: a and p technician II-XII NML intact, Fully Oriented, Alert, Motor Strength 5/5, Normal Mood/Affect - Diagnostic (1) Alcohol dependence with uncomplicated withdrawal Current Visit: No Status: Chronic (2) Cannabis dependence, uncomplicated Current Visit: No Status: Chronic (3) Cocaine dependence, uncomplicated Current Visit: No Status: Chronic (4) Nicotine dependence Current Visit: No Status: Chronic Qualifiers: Nicotine product type: cigarettes Substance use status: uncomplicated Qualified Code(s): F17.210 - Nicotine dependence, cigarettes, uncomplicated Breathalyzer - Breathalyzer Breathalyzer: 0 Urine Drug Screen - Test Device Lot number: [id number] Expiration date: 12/04/20 - Control Is test valid?: Yes - Results Drug screen NEGATIVE: No Urine drug screen results: THC-Marijuana, CICI-Cocaine, BUP-Suboxone Inpatient Rehab Admission - Rehab Decision to Admit Inpatient rehab admission?: No
[2019-04-26] MEDS ORDERED: BISMUTH SUBSALICYLATE 524 MG/30 ML UD PO PRN (18:38)
[2019-04-26] MEDS ORDERED: MAG HYDROX/AL HYDROX/SIMETH 30 ML UNIT-DOSE CUP PO PRN (18:38)
[2019-04-26] MEDS ORDERED: IBUPROFEN 400 MG TABLET (FP) PO PRN (18:38)
[2019-04-26] MEDS ORDERED: MAGNESIUM HYDROX 2400MG/30ML ORAL SUSPENSION 30 ML CUP PO PRN (18:38)
[2019-04-26] MEDS ORDERED: MAGNESIUM CITRATE 300 ML BOTTLE PO PRN (18:38)
[2019-04-26] MEDS ORDERED: MENTHOL/PHENOL 1 EACH UD MM PRN (18:38)
[2019-04-26] MEDS ORDERED: ACETAMINOPHEN 325 MG TABLET (FP) PO PRN ×2 (18:38)
[2019-04-26] MEDS ORDERED: hydrOXYzine PAMOATE 25 MG CAPSULE (FP) PO PRN (18:38)
[2019-04-26] MEDS ORDERED: METHOCARBAMOL 500 MG TABLET PO PRN (18:38)
[2019-04-26] MEDS ORDERED: chlordiazePOXIDE HCL 25 MG CAPSULE PO PRN (18:38)
[2019-04-26] MEDS ORDERED: chlordiazePOXIDE HCL 10 MG CAPSULE PO PRN (18:57)
[2019-04-26] MEDS ORDERED: traZODone HCL 50 MG TABLET (FP) PO ONE (18:58)
[2019-04-26] MEDS: chlordiazePOXIDE HCL 25 MG CAPSULE PO SCH (22:49)
[2019-04-26] MEDS: THIAMINE HCL 100 MG TABLET (FP) PO SCH (22:49)
[2019-04-26] MEDS ORDERED: chlordiazePOXIDE HCL 25 MG CAPSULE PO SCH (23:00)
[2019-04-27] MEDS: chlordiazePOXIDE HCL 25 MG CAPSULE PO SCH ×3 (06:08→22:30)
[2019-04-27 09:31] LABS: HEMATOCRIT 38.8 % (35.4-49); HEMOGLOBIN 12.8 GM/dL (11.7-16.9); MCHC 33.1 g/dl (32.0-35.9); MEAN CELL VOLUME 93.5 fl (80-96); MEAN PLT VOLUME 8.6 fl (7.5-11.1); PLATELET COUNT 258 K/MM3 (134-434); RBC 4.15 M/mm3 (4.00-5.60); RDW 15.3 % (11.9-15.9); WHITE BLOOD COUNT 3.2 K/mm3 (4.0-10.0)
--- NOTE | 2019-04-27 10:04 | PN ---
Teaching Attending Note Name of Resident: Pilo White ATTENDING PHYSICIAN STATEMENT I saw and evaluated the patient. I reviewed the resident's note and discussed the case with the resident. I agree with the resident's findings and plan as documented. SUBJECTIVE: Agree with resident subjective findings OBJECTIVE: Agree with resident objective findings. ASSESSMENT AND PLAN: Agree with plan for admission and orders. Dr. Tucker
[2019-04-27 10:12] LABS: ALBUMIN 3.3 g/dl (3.4-5.0); BILIRUBIN,TOTAL 0.3 mg/dL (0.2-1); BLOOD UREA NITROGEN 13.8 mg/dL (7-18); CALCIUM 8.8 mg/dL (8.5-10.1); CREATININE 1.2 mg/dL (0.55-1.3); POTASSIUM 4.4 mmol/L (3.5-5.1); TOT PROT 6.1 g/dl (6.4-8.2)
--- NOTE | 2019-04-27 11:52 | PN ---
[facility] CIWA - CIWA Score Nausea/Vomitin-No Nausea/No Vomiting Muscle Tremors: None Anxiety: 3 Agitation: 0-Normal Activity Paroxysmal Sweats: 3 Orientation: 0-Oriented Tacttile Disturbances: 0-None Auditory Disturbances: 0-None Visual Disturbances: 0-None Headache: 2-Mild CIWA-Ar Total Score: 8 S COWS - Scale Resting Pulse: 0= [place] 80 or Below Sweatin= Beads of Sweat on Face Restless Observation: 0= Sits Still Pupil Size: 0= Normal to Room Light Bone or Joint Aches: 0= None Runny Nose/ Eye Tearin= None GI Upset > 30mins: 0= None Tremor Observation of Outstretched Hands: 0= None Yawning Observation: 0= None Anxiety or Irritability: 2=Irritable/Anxious Goose Flesh Skin: 0=Smooth Skin COWS Score: 5 S Progress Note (SOAP) Subjective: c/o sweats, anxiety, and headache. Objective: 04/27/19 12:01 Vital Signs 04/27/19 04/27/19 06:36 09:25 Temperature 99.3 F 96.8 F L Pulse Rate 73 77 Respiratory 18 18 Rate Blood Pressure 91/61 90/55 L Laboratory Last Values WBC 3.2 K/mm3 (4.0-10.0) L 04/27/19 07:40 RBC 4.15 M/mm3 (4.00-5.60) 04/27/19 07:40 Hgb 12.8 GM/dL (11.7-16.9) 04/27/19 07:40 Hct 38.8 % (35.4-49) 04/27/19 07:40 MCV 93.5 fl (80-96) 04/27/19 07:40 MCH 31.0 pg (25.7-33.7) 04/27/19 07:40 MCHC 33.1 g/dl (32.0-35.9) 04/27/19 07:40 RDW 15.3 % (11.9-15.9) 04/27/19 07:40 Plt Count 258 K/MM3 (134-434) 04/27/19 07:40 MPV 8.6 fl (7.5-11.1) 04/27/19 07:40 Sodium 140 mmol/L (136-145) 04/27/19 07:40 Potassium 4.4 mmol/L (3.5-5.1) 04/27/19 07:40 Chloride 106 mmol/L (98-107) 04/27/19 07:40 Carbon Dioxide 28 mmol/L (21-32) 04/27/19 07:40 Anion Gap 6 MMOL/L (8-16) L 04/27/19 07:40 BUN 13.8 mg/dL (7-18) 04/27/19 07:40 Creatinine 1.2 mg/dL (0.55-1.3) 04/27/19 07:40 Est GFR (CKD-EPI)AfAm 80.66 04/27/19 07:40 Est GFR (CKD-EPI)NonAf 69.59 04/27/19 07:40 Random Glucose 90 mg/dL (74-106) 04/27/19 07:40 Calcium 8.8 mg/dL (8.5-10.1) 04/27/19 07:40 Total Bilirubin 0.3 mg/dL (0.2-1) 04/27/19 07:40 AST 28 U/L (15-37) 04/27/19 07:40 ALT 21 U/L (13-61) 04/27/19 07:40 Alkaline Phosphatase 61 U/L (45-117) 04/27/19 07:40 Total Protein 6.1 g/dl (6.4-8.2) L 04/27/19 07:40 Albumin 3.3 g/dl (3.4-5.0) L 04/27/19 07:40 Labs noted. Assessment: 04/27/19 12:01 AOX3, in no respiratory distress. Full ROM, ambulating in the unit. Withdrawal symptoms. Plan: continue detox.
[2019-04-27] MEDS: PRENATAL VITAMINS W/ FOLIC ACID TABLET (FP) PO SCH (12:01)
--- NOTE | 2019-04-27 14:36 | EKG ---
Test Reason : Blood Pressure : / mmHG Vent. Rate : 073 BPM Atrial Rate : 073 BPM P-R Int : 168 ms QRS Dur : 086 ms QT Int : 372 ms P-R-T Axes : 074 073 061 degrees QTc Int : 409 ms NORMAL SINUS RHYTHM NORMAL ECG WHEN COMPARED WITH ECG OF 07-JUL-2016 18:41, NO SIGNIFICANT CHANGE WAS FOUND Confirmed by CONSTANTIN SIMMONS MD ([id number]) on 04/27/2019 2:35:55 PM Referred By: Confirmed By:CONSTANTIN SIMMONS MD
--- NOTE | 2019-04-27 15:05 | CONSULT ---
[facility] Psychiatric Consult - Data Date of interview: 04/27/19 Admission source: [facility] for this 53 y/o AA male self- referred for detoxification. BASHIR issues : alcohol cocaine, cannabis, nicotine. Examined at [address] [place] [address]. Patient is single, father of one, homeless, unemployed and supported on welfare. Substance Abuse History: Discussed with the patient. See [facility] report for details : Smoking history: Current every day smoker. Have you smoked in the past 12 months: Yes. Aproximately how many cigarettes per day: 10. Cigars Per Day: 0. Hx Chewing Tobacco Use: No. Initiated information on smoking cessation: Yes. 'Breaking Loose' booklet given: 04/26/19. - Substances abused. Alcohol. Substance route: Oral. Frequency: Daily. Amount used: 7 CANS 24OZ BEER. Age of first use: 17. Date of last use: 04/26/19. Cocaine. Other (specify): crack. Substance route: Smoking. Frequency: Daily. Amount used: 1gm. Age of first use: 26. Date of last use: 04/25/19. Marijuana/Hashish. Substance route: Smoking. Frequency: Daily. Amount used: 6 BLUNT. Age of first use: 16. Date of last use: 04/26/19. Heroin. Other (specify): SNIFF. Substance route: Inhalation. Frequency: Daily. Amount used: 1bag. Age of first use: 53. Date of last use: 04/26/19 Medical History: Patient endorses good general health. Psychiatric History: Patient denies history of psychiatric hospitalizations, OPD care or suicide attempts. Physical/Sexual Abuse/Trauma History: Patient denies. Additional Comment: Urine drug screen results: THC-Marijuana, CICI-Cocaine, BUP- Suboxone. Noted. Mental Status Exam - Mental Status Exam Alert and Oriented to: Time, Place, Person Cognitive Function: Good Patient Appearance: Well Groomed Mood: Withdrawn, Hopeful, Euthymic Affect: Appropriate, Normal Range Patient Behavior: Fatigued, Cooperative Speech Pattern: Clear Voice Loudness: Normal Thought Process: Intact, Goal Oriented Thought Disorder: Not Present Hallucinations: Denies Suicidal Ideation: Denies Homicidal Ideation: Denies Insight/Judgement: Poor Sleep: Well Appetite: Good Gait/Station: Normal Psychiatric Findings - Problem List ([place] 1, 2,3) (1) Alcohol dependence with uncomplicated withdrawal Current Visit: Yes Status: Acute (2) Cannabis dependence, uncomplicated Current Visit: Yes Status: Chronic (3) Nicotine dependence Current Visit: Yes Status: Chronic Qualifiers: Nicotine product type: cigarettes Substance use status: uncomplicated Qualified Code(s): F17.210 - Nicotine dependence, cigarettes, uncomplicated (4) Cocaine dependence, uncomplicated Current Visit: Yes Status: Chronic - Initial Treatment Plan Initial Treatment Plan: Psychoeducation. Sleep hygiene. Detoxification. Support. Observation.
[2019-04-27] MEDS: THIAMINE HCL 100 MG TABLET (FP) PO SCH (22:17)
[2019-04-28] MEDS ORDERED: chlordiazePOXIDE HCL 25 MG CAPSULE PO SCH (05:00)
[2019-04-28] MEDS: chlordiazePOXIDE 5 MG CAPSULE PO SCH ×2 (06:14→13:00)
[2019-04-28] MEDS: PRENATAL VITAMINS W/ FOLIC ACID TABLET (FP) PO SCH (11:04)
--- NOTE | 2019-04-28 11:46 | PN ---
[facility] CIWA - CIWA Score Nausea/Vomitin-Mild Nausea/No Vomiting Muscle Tremors: 4-Moderate,w/Arms Extend Anxiety: 3 Agitation: 2 Paroxysmal Sweats: 1-Minimal Palms Moist Orientation: 0-Oriented Tacttile Disturbances: 1-Very Mild Itch/Numbness Auditory Disturbances: 0-None Visual Disturbances: 0-None Headache: 0-None Present CIWA-Ar Total Score: 12 S Progress Note (SOAP) Subjective: 53 years old male admitted on 04/26/19 for alcohol withdrawal sx management treating with librium detox regimen reports taking heroin periodically as well as buying suboxone states that heroin is not the main drug of choice but alcohol is feeling sad that can not stop drinking alcohol emotional support discuss behavior therapy and psychosocial therapy as part of recovery process Objective: 04/28/19 11:49 Vital Signs Temperature 97.0 F L 04/28/19 09:30 Pulse Rate 62 04/28/19 09:30 Respiratory Rate 16 04/28/19 09:30 Blood Pressure 102/68 04/28/19 09:30 O2 Sat by Pulse Oximetry (%) Laboratory Last Values WBC 3.2 K/mm3 (4.0-10.0) L 04/27/19 07:40 RBC 4.15 M/mm3 (4.00-5.60) 04/27/19 07:40 Hgb 12.8 GM/dL (11.7-16.9) 04/27/19 07:40 Hct 38.8 % (35.4-49) 04/27/19 07:40 MCV 93.5 fl (80-96) 04/27/19 07:40 MCH 31.0 pg (25.7-33.7) 04/27/19 07:40 MCHC 33.1 g/dl (32.0-35.9) 04/27/19 07:40 RDW 15.3 % (11.9-15.9) 04/27/19 07:40 Plt Count 258 K/MM3 (134-434) 04/27/19 07:40 MPV 8.6 fl (7.5-11.1) 04/27/19 07:40 Sodium 140 mmol/L (136-145) 04/27/19 07:40 Potassium 4.4 mmol/L (3.5-5.1) 04/27/19 07:40 Chloride 106 mmol/L (98-107) 04/27/19 07:40 Carbon Dioxide 28 mmol/L (21-32) 04/27/19 07:40 Anion Gap 6 MMOL/L (8-16) L 04/27/19 07:40 BUN 13.8 mg/dL (7-18) 04/27/19 07:40 Creatinine 1.2 mg/dL (0.55-1.3) 04/27/19 07:40 Est GFR (CKD-EPI)AfAm 80.66 04/27/19 07:40 Est GFR (CKD-EPI)NonAf 69.59 04/27/19 07:40 Random Glucose 90 mg/dL (74-106) 04/27/19 07:40 Calcium 8.8 mg/dL (8.5-10.1) 04/27/19 07:40 Total Bilirubin 0.3 mg/dL (0.2-1) 04/27/19 07:40 AST 28 U/L (15-37) 04/27/19 07:40 ALT 21 U/L (13-61) 04/27/19 07:40 Alkaline Phosphatase 61 U/L (45-117) 04/27/19 07:40 Total Protein 6.1 g/dl (6.4-8.2) L 04/27/19 07:40 Albumin 3.3 g/dl (3.4-5.0) L 04/27/19 07:40 RPR Titer Nonreactive (NONREACTIVE) 04/27/19 07:40 lab noted Assessment: 04/28/19 11:49 alcohol withdrawal Plan: librium regimen
[2019-04-28] MEDS ORDERED: LORazepam 0.5 MG TABLET PO PRN (13:04)
[2019-04-28] MEDS: LORazepam 0.5 MG TABLET PO SCH (14:11)
[2019-04-28] MEDS: THIAMINE HCL 100 MG TABLET (FP) PO SCH (22:14)
[2019-04-28] MEDS: MELATONIN 5 MG TABLETS PO PRN (22:14)
[2019-04-29] MEDS ORDERED: chlordiazePOXIDE HCL 10 MG CAPSULE PO PRN ×2
[2019-04-29] MEDS: LORazepam 0.5 MG TABLET PO SCH ×3 (00:36→10:40)
[2019-04-29] MEDS ORDERED: chlordiazePOXIDE HCL 10 MG CAPSULE PO SCH ×2 (05:00)
[2019-04-29] MEDS: PRENATAL VITAMINS W/ FOLIC ACID TABLET (FP) PO SCH (10:40)
--- NOTE | 2019-04-29 12:27 | PN ---
[facility] CIWA - CIWA Score Nausea/Vomitin-No Nausea/No Vomiting Muscle Tremors: 2 Anxiety: 2 Agitation: 2 Paroxysmal Sweats: 2 Orientation: 0-Oriented Tacttile Disturbances: 0-None Auditory Disturbances: 0-None Visual Disturbances: 0-None Headache: 1-Very Mild CIWA-Ar Total Score: 9 S Progress Note (SOAP) Subjective: 53 years old male admitted on 04/26/19 for alcohol withdrawal sx management treating with ativan detox regimen doing well with ativan feeling better less tremor mild anxiety Objective: 04/29/19 12:30 Vital Signs Temperature 97.7 F 04/29/19 09:24 Pulse Rate 55 L 04/29/19 09:24 Respiratory Rate 18 04/29/19 09:24 Blood Pressure 100/62 04/29/19 09:24 O2 Sat by Pulse Oximetry (%) Laboratory Last Values WBC 3.2 K/mm3 (4.0-10.0) L 04/27/19 07:40 RBC 4.15 M/mm3 (4.00-5.60) 04/27/19 07:40 Hgb 12.8 GM/dL (11.7-16.9) 04/27/19 07:40 Hct 38.8 % (35.4-49) 04/27/19 07:40 MCV 93.5 fl (80-96) 04/27/19 07:40 MCH 31.0 pg (25.7-33.7) 04/27/19 07:40 MCHC 33.1 g/dl (32.0-35.9) 04/27/19 07:40 RDW 15.3 % (11.9-15.9) 04/27/19 07:40 Plt Count 258 K/MM3 (134-434) 04/27/19 07:40 MPV 8.6 fl (7.5-11.1) 04/27/19 07:40 Sodium 140 mmol/L (136-145) 04/27/19 07:40 Potassium 4.4 mmol/L (3.5-5.1) 04/27/19 07:40 Chloride 106 mmol/L (98-107) 04/27/19 07:40 Carbon Dioxide 28 mmol/L (21-32) 04/27/19 07:40 Anion Gap 6 MMOL/L (8-16) L 04/27/19 07:40 BUN 13.8 mg/dL (7-18) 04/27/19 07:40 Creatinine 1.2 mg/dL (0.55-1.3) 04/27/19 07:40 Est GFR (CKD-EPI)AfAm 80.66 04/27/19 07:40 Est GFR (CKD-EPI)NonAf 69.59 04/27/19 07:40 Random Glucose 90 mg/dL (74-106) 04/27/19 07:40 Calcium 8.8 mg/dL (8.5-10.1) 04/27/19 07:40 Total Bilirubin 0.3 mg/dL (0.2-1) 04/27/19 07:40 AST 28 U/L (15-37) 04/27/19 07:40 ALT 21 U/L (13-61) 04/27/19 07:40 Alkaline Phosphatase 61 U/L (45-117) 04/27/19 07:40 Total Protein 6.1 g/dl (6.4-8.2) L 04/27/19 07:40 Albumin 3.3 g/dl (3.4-5.0) L 04/27/19 07:40 RPR Titer Nonreactive (NONREACTIVE) 04/27/19 07:40 lab noted Assessment: 04/29/19 12:30 alcohol withdrawal Plan: ativan regimen
[2019-04-29] MEDS: MELATONIN 5 MG TABLETS PO PRN (22:19)
[2019-04-29] MEDS: THIAMINE HCL 100 MG TABLET (FP) PO SCH (22:19)
[2019-04-30] MEDS ORDERED: LORazepam 0.5 MG TABLET PO ONE (05:00)
[2019-04-30] MEDS ORDERED: chlordiazePOXIDE HCL 10 MG CAPSULE PO ONE (05:00)
[2019-04-30] MEDS ORDERED: chlordiazePOXIDE HCL 10 MG CAPSULE PO SCH (05:00)
[2019-04-30 09:04] VITALS: BP 123/60; PULSE 74; TEMP 98.4
[2019-04-30] MEDS: PRENATAL VITAMINS W/ FOLIC ACID TABLET (FP) PO SCH (11:26)
--- NOTE | 2019-04-30 13:30 | DS ---
[facility] Detox Discharge Summary Admission Date: 04/26/19 Discharge Date: 04/30/19 - History Present History: Alcohol Dependence Additional Comments: 53 years old male admitted on 04/26/19 for alcohol withdrawal sx management treated with ativan detox regimen patient tolerated ativan better alert oriented x 3 cardiac s1s2 regular rate rhythm respiratory clear lung bilaterally on auscultation extremities full range of motion - Physical Exam Results Vital Signs: Vital Signs Temperature 98.4 F 04/30/19 09:04 Pulse Rate 74 04/30/19 09:04 Respiratory Rate 18 04/30/19 09:04 Blood Pressure 123/60 04/30/19 09:04 O2 Sat by Pulse Oximetry (%) Pertinent Admission Physical Exam Findings: alcohol withdrawal Laboratory Last Values WBC 3.2 K/mm3 (4.0-10.0) L 04/27/19 07:40 RBC 4.15 M/mm3 (4.00-5.60) 04/27/19 07:40 Hgb 12.8 GM/dL (11.7-16.9) 04/27/19 07:40 Hct 38.8 % (35.4-49) 04/27/19 07:40 MCV 93.5 fl (80-96) 04/27/19 07:40 MCH 31.0 pg (25.7-33.7) 04/27/19 07:40 MCHC 33.1 g/dl (32.0-35.9) 04/27/19 07:40 RDW 15.3 % (11.9-15.9) 04/27/19 07:40 Plt Count 258 K/MM3 (134-434) 04/27/19 07:40 MPV 8.6 fl (7.5-11.1) 04/27/19 07:40 Sodium 140 mmol/L (136-145) 04/27/19 07:40 Potassium 4.4 mmol/L (3.5-5.1) 04/27/19 07:40 Chloride 106 mmol/L (98-107) 04/27/19 07:40 Carbon Dioxide 28 mmol/L (21-32) 04/27/19 07:40 Anion Gap 6 MMOL/L (8-16) L 04/27/19 07:40 BUN 13.8 mg/dL (7-18) 04/27/19 07:40 Creatinine 1.2 mg/dL (0.55-1.3) 04/27/19 07:40 Est GFR (CKD-EPI)AfAm 80.66 04/27/19 07:40 Est GFR (CKD-EPI)NonAf 69.59 04/27/19 07:40 Random Glucose 90 mg/dL (74-106) 04/27/19 07:40 Calcium 8.8 mg/dL (8.5-10.1) 04/27/19 07:40 Total Bilirubin 0.3 mg/dL (0.2-1) 04/27/19 07:40 AST 28 U/L (15-37) 04/27/19 07:40 ALT 21 U/L (13-61) 04/27/19 07:40 Alkaline Phosphatase 61 U/L (45-117) 04/27/19 07:40 Total Protein 6.1 g/dl (6.4-8.2) L 04/27/19 07:40 Albumin 3.3 g/dl (3.4-5.0) L 04/27/19 07:40 RPR Titer Nonreactive (NONREACTIVE) 04/27/19 07:40 lab noted - Treatment Hospital Course: Detox Protocol Followed, Detoxed Safely, Responded well, Discharged Condition Good, Rehab Referral Accepted Patient has Accepted [facility] - Medication Discharge Medications: Ambulatory Orders NK [No Known Home Medication] 07/07/16 - Diagnosis (1) Alcohol dependence with uncomplicated withdrawal Status: Acute (2) Substance induced mood disorder Status: Suspected (3) Nicotine dependence Status: Acute Qualifiers: Nicotine product type: cigarettes Substance use status: in withdrawal Qualified Code(s): F17.213 - Nicotine dependence, cigarettes, with withdrawal - AMA Did Patient Leave Against Medical Advice: No CIWA Score - CIWA Score Nausea/Vomitin-No Nausea/No Vomiting Muscle Tremors: 1-None Visible, but [place] Anxiety: 1-Mildly Anxious Agitation: 0-Normal Activity Paroxysmal Sweats: 1-Minimal Palms Moist Orientation: 0-Oriented Tacttile Disturbances: 0-None Auditory Disturbances: 0-None Visual Disturbances: 0-None Headache: 1-Very Mild CIWA-Ar Total Score: 4
[2019-05-01] MEDS ORDERED: chlordiazePOXIDE HCL 10 MG CAPSULE PO ONE (05:00)
== END 2019-04-30 11:49 | disposition other institution (70) | DRG 774 ==
LOC: YASAS 14:52 → Y3N 19:10
PROVIDERS: ADMIT Allergy & Immunology; ATTEND Allergy & Immunology
PROC: HZ2ZZZZ Detoxification Services for Substance Abuse Treatment (ICD-10-PCS; principal; 2019-04-26)
DX: F10.230 Alcohol dependence with withdrawal, uncomplicated (principal); F14.20 Cocaine dependence, uncomplicated; F12.20 Cannabis dependence, uncomplicated; F17.213 Nicotine dependence, cigarettes, with withdrawal; F19.24 Other psychoactive substance dependence with psychoactive substance-induced mood disorder
CPT/HCPCS: 36415; 80053; 85027; 86593; 93005; 93010

== ENCOUNTER 2019-04-30 11:52 | Inpatient (IN) | payer OTHER ==
[2019-04-30] MEDS ORDERED: LOPERAMIDE HCL 2 MG CAPSULE PO PRN (13:36)
[2019-04-30] MEDS ORDERED: MAG HYDROX/AL HYDROX/SIMETH 30 ML UNIT-DOSE CUP PO PRN (13:36)
[2019-04-30] MEDS ORDERED: ACETAMINOPHEN 325 MG TABLET (FP) PO PRN (13:36)
[2019-04-30] MEDS ORDERED: MAGNESIUM HYDROX 2400MG/30ML ORAL SUSPENSION 30 ML CUP PO PRN (13:36)
[2019-04-30] MEDS ORDERED: P-EPHED 60MG/TRIPROLIDI 2.5MG TABLET PO PRN (13:36)
[2019-04-30] MEDS ORDERED: IBUPROFEN 400 MG TABLET (FP) PO PRN (13:36)
[2019-04-30] MEDS ORDERED: MAGNESIUM CITRATE 300 ML BOTTLE PO PRN (13:36)
--- NOTE | 2019-04-30 13:36 | HP ---
[facility] Rehab Assess/Revision - Admission History Admitted to Rehab from: [facility] Date of Admission to Rehab: 04/30/19 - Vital signs Vital Signs: Vital Signs Period Temp Pulse Resp BP Sys/Peterson Pulse Ox Last 24 Hr 97.9 F 67 18 120/76 - Findings Detox History & Physical reviewed: Yes Concur with findings: Yes Comments/Additional Findings: transferred from detox to rehab admission as per protocol Inpatient Rehab Admission - Rehab Decision to Admit Inpatient rehab admission?: Yes - Initial Determination Are CD services needed?: Yes Free of communicable disease: Yes Not in need of hospitalization: Yes - Rehab Admission Criteria Previous failed treatment: Yes Poor recovery environment: Yes Comorbidities: Yes Lacks judgement: Yes Patient is meeting Inpatient Rehab admission criteria:: Yes
[2019-04-30] MEDS: MELATONIN 5 MG TABLETS PO PRN (21:01)
[2019-04-30] MEDS: THIAMINE HCL 100 MG TABLET (FP) PO SCH (21:01)
[2019-05-01] MEDS: PRENATAL VITAMINS W/ FOLIC ACID TABLET (FP) PO SCH (10:42)
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
[2019-05-01] MEDS: MELATONIN 5 MG TABLETS PO PRN (21:24)
[2019-05-01] MEDS: THIAMINE HCL 100 MG TABLET (FP) PO SCH (21:24)
[2019-05-02] MEDS: PRENATAL VITAMINS W/ FOLIC ACID TABLET (FP) PO SCH (10:11)
[2019-05-02] MEDS: THIAMINE HCL 100 MG TABLET (FP) PO SCH (21:10)
[2019-05-02] MEDS: SUVOREXANT 10 MG TABLET PO PRN (21:11)
[2019-05-03] MEDS: MENTHOL/PHENOL 1 EACH UD MM PRN (09:48)
[2019-05-03] MEDS: guaiFENesin 200 MG/10 ML 10 ML UNIT-DOSE CUPS PO PRN (09:48)
[2019-05-03] MEDS: PRENATAL VITAMINS W/ FOLIC ACID TABLET (FP) PO SCH (09:48)
[2019-05-03] MEDS: SUVOREXANT 10 MG TABLET PO PRN (21:11)
[2019-05-03] MEDS: THIAMINE HCL 100 MG TABLET (FP) PO SCH (21:11)
[2019-05-04] MEDS: PRENATAL VITAMINS W/ FOLIC ACID TABLET (FP) PO SCH (10:04)
[2019-05-04] MEDS: guaiFENesin 200 MG/10 ML 10 ML UNIT-DOSE CUPS PO PRN ×2 (11:35→21:31)
[2019-05-04] MEDS: MENTHOL/PHENOL 1 EACH UD MM PRN ×3 (11:35→21:32)
--- NOTE | 2019-05-04 16:04 | PN ---
[facility] Progress Note Note: Psychiatry Attending's note : Called for renewal of suvorexant. Chart reviewed. Medication is confirmed. No report of adverse effects. Belsomra 10 mg po hs prn. Resumed with the patient's informed consent.
[2019-05-04] MEDS: THIAMINE HCL 100 MG TABLET (FP) PO SCH (21:29)
[2019-05-04] MEDS: SUVOREXANT 10 MG TABLET PO PRN (21:31)
[2019-05-05] MEDS: guaiFENesin 200 MG/10 ML 10 ML UNIT-DOSE CUPS PO PRN ×2 (08:38→16:24)
[2019-05-05] MEDS: PRENATAL VITAMINS W/ FOLIC ACID TABLET (FP) PO SCH (09:30)
[2019-05-05] MEDS: MENTHOL/PHENOL 1 EACH UD MM PRN (16:24)
[2019-05-05] MEDS: THIAMINE HCL 100 MG TABLET (FP) PO SCH (21:29)
[2019-05-05] MEDS: SUVOREXANT 10 MG TABLET PO PRN (21:30)
[2019-05-06] MEDS: PRENATAL VITAMINS W/ FOLIC ACID TABLET (FP) PO SCH (10:45)
[2019-05-06] MEDS: guaiFENesin 200 MG/10 ML 10 ML UNIT-DOSE CUPS PO PRN ×2 (13:26→21:49)
[2019-05-06] MEDS: SUVOREXANT 10 MG TABLET PO PRN (21:48)
[2019-05-06] MEDS: THIAMINE HCL 100 MG TABLET (FP) PO SCH (21:48)
[2019-05-07] MEDS: PRENATAL VITAMINS W/ FOLIC ACID TABLET (FP) PO SCH (10:50)
[2019-05-07] MEDS: MENTHOL/PHENOL 1 EACH UD MM PRN (12:25)
[2019-05-07] MEDS: guaiFENesin 200 MG/10 ML 10 ML UNIT-DOSE CUPS PO PRN ×2 (12:26→23:13)
[2019-05-07] MEDS: THIAMINE HCL 100 MG TABLET (FP) PO SCH (21:30)
[2019-05-07] MEDS: SUVOREXANT 10 MG TABLET PO PRN (21:31)
[2019-05-07] MEDS ORDERED: SUVOREXANT 10 MG TABLET PO PRN (22:00)
[2019-05-08] MEDS: PRENATAL VITAMINS W/ FOLIC ACID TABLET (FP) PO SCH (10:05)
[2019-05-08] MEDS: guaiFENesin 200 MG/10 ML 10 ML UNIT-DOSE CUPS PO PRN (12:47)
--- NOTE | 2019-05-08 17:41 | PN ---
[facility] Progress Note Note: Patient admitted to rehab for ETOH/Cocaine/Opiod dependence after completing detox at [facility] on 04/30/19. Labs reviewed, vital signs stable. Rehab continued. Vital Signs Period Temp Pulse Resp BP Sys/Peterson Pulse Ox Last 24 Hr 98.3 F 57 18-18 117/72
[2019-05-08] MEDS: THIAMINE HCL 100 MG TABLET (FP) PO SCH (21:55)
[2019-05-09] MEDS: guaiFENesin 200 MG/10 ML 10 ML UNIT-DOSE CUPS PO PRN (00:46)
[2019-05-09 07:17] VITALS: BP 129/67; PULSE 60; TEMP 98.2
[2019-05-09] MEDS: PRENATAL VITAMINS W/ FOLIC ACID TABLET (FP) PO SCH (09:12)
--- NOTE | 2019-05-09 13:15 | DS ---
[facility] Rehab Discharge Summary - [facility] Rehab Discharge Summary Admission Date: 04/30/19 Discharge Date: 05/09/19 - History Present History: Alcohol dependence, Cocaine dependence Pertinent Past History: PT completed detox for AUD. Pt also used cocaine, THC and for a short period of time- heroin. d/w pt MAT methadone/Suboxone- pt refused. Pt will f/u with [facility] and if needed can start MAT. Pt does not need any meds. Pt does not have a PCP- encouraged to get one. PE- grossly WNL. Vital Signs - 24 hr 05/09/19 05/09/19 03:30 06:16 Temperature 98.2 F Pulse Rate 60 Respiratory 18 18 Rate Blood Pressure 129/67 a/p: polysubstance use- pt states doing well. does not need meds f/u [facility] - Discharge Physical Exam Vital Signs: Vital Signs Temperature 98.2 F 05/09/19 06:16 Pulse Rate 60 05/09/19 06:16 Respiratory Rate 18 05/09/19 06:16 Blood Pressure 129/67 05/09/19 06:16 O2 Sat by Pulse Oximetry (%) - Treatment Discharge Condition: Discharge condition good - Medication Discharge Medications: Ambulatory Orders NK [No Known Home Medication] 07/07/16 - Medication-Assisted Treatment (MAT) Medication-Assisted Treatment (MAT): No - Discharge Instructions Diet, activity, other medical instructions: Diet: Activity: Other medical instructions: - Diagnosis (1) Alcohol dependence Current Visit: Yes Status: Acute (2) Cannabis dependence Current Visit: Yes Status: Acute (3) Cocaine dependence Current Visit: Yes Status: Acute (4) Opioid dependence Current Visit: Yes Status: Acute (5) Nicotine dependence Current Visit: Yes Status: Chronic - AMA Did Patient Leave Against Medical Advice: No
== END 2019-05-09 13:18 | disposition home or self-care (01) | DRG 772 ==
LOC: YASAS 11:52 → Y3W 11:53
PROVIDERS: ADMIT Neuromusculoskeletal Medicine & OMM; ATTEND Neuromusculoskeletal Medicine & OMM
PROC: HZ42ZZZ Group Counseling for Substance Abuse Treatment, Cognitive-Behavioral (ICD-10-PCS; principal; 2019-04-30)
DX: F11.20 Opioid dependence, uncomplicated (principal); F10.20 Alcohol dependence, uncomplicated; F14.20 Cocaine dependence, uncomplicated; F12.20 Cannabis dependence, uncomplicated; F17.210 Nicotine dependence, cigarettes, uncomplicated; F19.282 Other psychoactive substance dependence with psychoactive substance-induced sleep disorder

== ENCOUNTER 2019-06-19 12:37 | Inpatient (IN) | payer OTHER ==
--- NOTE | 2019-06-19 13:25 | BHS.RME ---
Substance Use & Tx History - Substance Use History Alcohol Frequency of use: Daily Substance route: Oral Date of Last Use: 06/18/19 Cocaine (Powder) Substance amount: 1.5 grams Frequency of use: Daily Substance route: Inhalation (ex: sniffing or snorting) Date of Last Use: 06/18/19 - Last Treatment Date of last treatment: 04/26-05/09/2019 Treatment type: Substance Use Disorder (BASHIR) Where was last treatment: Rehab Physical/Psych/Mental Status - Behavior General Behavior: Increased activity (restlessness, agitation) - Cooperativeness Cooperativeness: Cooperative - Thinking Thought Processes: Tight, Logical, Goal Directed Thought content: Future oriented - Physical Health Problems Is patient presently having any pain?: No Does patient presently have any injuries (include location): No Does patient currently have a fever: No Is patient : No CIWA Nausea/Vomitin-Mild Nausea/No Vomiting Muscle Tremors: 3 Anxiety: 3 Agitation: 2 Paroxysmal Sweats: 5 Orientation: 0-Oriented Tacttile Disturbances: 0-None Auditory Disturbances: 0-None Visual Disturbances: 0-None Headache: 0-None Present CIWA-Ar Total Score: 14
--- NOTE | 2019-06-19 14:10 | HP ---
CIWA Score Nausea/Vomitin-Mild Nausea/No Vomiting Muscle Tremors: 3 Anxiety: 3 Agitation: 2 Paroxysmal Sweats: 5 Orientation: 0-Oriented Tacttile Disturbances: 0-None Auditory Disturbances: 0-None Visual Disturbances: 0-None Headache: 0-None Present CIWA-Ar Total Score: 14 - Admission Criteria OASAS Guidelines: Admission for Medically Managed Detox: Requires at least one of the followin. CIWA greater than 12 2. Seizures within the past 24 hours 3. Delirium tremens within the past 24 hours 4. Hallucinations within the past 24 hours 5. Acute intervention needed for co occurring medical disorder 6. Acute intervention needed for co occurring psychiatric disorder 7. Severe withdrawal that cannot be handled at a lower level of care (continued vomiting, continued diarrhea, abnormal vital signs) requiring intravenous medication and/or fluids 8. Admitting History and Physical - Admission Chief Complaint: Mr. Fonseca is a 53 yo gentleman who presents to [facility] for detox from alcohol. History of Present Illness: Mr. Fonseca is a 53 yo gentleman who presents to [facility] for detox from alcohol. He was last here between April 26 and May 09, 2019. PMH: none PSurg: none Psych: none Substance use history Alcohol, first at age 18, last drink yesterday, quantity: 5-6 24 oz beers daily. Hx of blackout in past 2 days. No withdrawal seizures. Binging last 5 days Cocaine: first use in 20's, last use yesterday, quantity: 1. 5 grams dialy, smoke or snort. Marijuana: first use age 18y, last use yesterday, 4-5 blunts daily Nicotine: first use age 24, 1/2 ppd - Smoking History Smoking history: Current every day smoker Have you smoked in the past 12 months: Yes Aproximately how many cigarettes per day: 10 - Alcohol/Substance Use Hx Alcohol Use: Yes Admission [facility] Allergies/Adverse Reactions: Allergies Allergy/AdvReac Type Severity Reaction Status Date / Time No Known Allergies Allergy Verified 04/26/19 15:23 Exam Limitations: No Limitations - Ebola screening Have you traveled outside of the country in the last 21 days: No Have you had contact with anyone from an Ebola affected area: No Have you been sick,other than usual withdrawal symptoms: No Do you have a fever: No - Review of Systems Constitutional: No Symptoms Reported EENT: reports: No Symptoms Reported Respiratory: reports: No Symptoms reported Cardiac: reports: No Symptoms Reported GI: reports: No Symptoms Reported, Nausea : reports: No Symptoms Reported Musculoskeletal: reports: No Symptoms Reported Integumentary: reports: No Symptoms Reported Neuro: reports: No Symptoms reported Endocrine: reports: No Symptoms Reported Hematology: reports: No Symptoms Reported Psychiatric: reports: Anxious Patient History - Patient Medical History Hx Anemia: No Hx Asthma: No Hx Chronic Obstructive Pulmonary Disease (COPD): No Hx Cancer: No Hx Cardiac Disorders: No Hx Congestive Heart Failure: No Hx Hypertension: No Hx Hypercholesterolemia: No Hx Pacemaker: No HX Cerebrovascular Accident: No Hx Seizures: No Hx Dementia: No Hx Diabetes: No Hx Gastrointestinal Disorders: No Hx Liver Disease: No Hx Genitourinary Disorders: No Hx Sexually Transmitted Disorders: No Hx Renal Disease (ESRD): No Hx Thyroid Disease: No Hx Human Immunodeficiency Virus (HIV): No Hx Hepatitis C: No Hx Depression: No Hx Suicide Attempt: No Hx Bipolar Disorder: No Hx Schizophrenia: No - Patient Surgical History Past Surgical History: No Hx Neurologic Surgery: No Hx Cataract Extraction: No Hx Cardiac Surgery: No Hx Lung Surgery: No Hx Breast Surgery: No Hx Breast Biopsy: No Hx Abdominal Surgery: No Hx Appendectomy: No Hx Cholecystectomy: No Hx Genitourinary Surgery: No Hx Section: No Hx Orthopedic Surgery: No Anesthesia Reaction: No - PPD History Date: 09/20/18 Results: 0MM - Smoking Cessation Smoking history: Current every day smoker Have you smoked in the past 12 months: Yes Aproximately how many cigarettes per day: 10 Cigars Per Day: 0 Hx Chewing Tobacco Use: No Initiated information on smoking cessation: Yes 'Breaking Loose' booklet given: 06/19/19 - Substances abused Alcohol Frequency: Daily Amount used: 5-6 24 ounce beers Age of first use: 18 Date of last use: 06/18/19 Cocaine Substance route: Inhalation Frequency: Daily Amount used: 1.5 grams Age of first use: 22 Date of last use: 06/18/19 Marijuana/Hashish Substance route: Smoking Frequency: Daily Amount used: 4-5 blunts Age of first use: 18 Date of last use: 06/18/19 Admission Physical Exam BHS - Physical General Appearance: Yes: Within Normal Limits HEENTM: Yes: Within Normal Limits Respiratory: Yes: Lungs Clear, Normal Breath Sounds Neck: Yes: Within Normal Limits Breast: Yes: Breast Exam Deferred Cardiology: Yes: Regular Rate, S1, S2 Abdominal: Yes: Normal Bowel Sounds, Non Tender, Flat, Soft Back: Yes: Normal Inspection Musculoskeletal: Yes: Within Normal Limits Extremities: Yes: Within Normal Limits Neurological: Yes: Fully Oriented, Alert Integumentary: Yes: Other (multiple tattoos) - Diagnostic (1) Alcohol dependence with uncomplicated withdrawal Current Visit: Yes Status: Acute (2) Cannabis dependence Current Visit: Yes Status: Chronic (3) Cocaine dependence Current Visit: Yes Status: Acute (4) Nicotine dependence Current Visit: Yes Status: Acute Cleared for Admission BHS - Detox or Rehab [facility] Level of Care: Medically Managed Breathalyzer - Breathalyzer Breathalyzer: 0 Urine Drug Screen - Test Device Lot number: [id number] Expiration date: 04/06/21 - Control Is test valid?: Yes - Results Drug screen NEGATIVE: No Urine drug screen results: THC-Marijuana, CICI-Cocaine Inpatient Rehab Admission - Rehab Decision to Admit Inpatient rehab admission?: No
[2019-06-19] MEDS ORDERED: ACETAMINOPHEN 325 MG TABLET (FP) PO PRN ×2 (14:12)
[2019-06-19] MEDS ORDERED: BISMUTH SUBSALICYLATE 262 MG/15 ML BTL PO PRN (14:12)
[2019-06-19] MEDS ORDERED: IBUPROFEN 400 MG TABLET (FP) PO PRN (14:12)
[2019-06-19] MEDS ORDERED: MENTHOL/PHENOL 1 EACH UD MM PRN (14:12)
[2019-06-19] MEDS ORDERED: MAG HYDROX/AL HYDROX/SIMETH 30 ML UNIT-DOSE CUP PO PRN (14:12)
[2019-06-19] MEDS ORDERED: METHOCARBAMOL 500 MG TABLET PO PRN (14:12)
[2019-06-19] MEDS ORDERED: chlordiazePOXIDE HCL 25 MG CAPSULE PO PRN (14:12)
[2019-06-19] MEDS ORDERED: MAGNESIUM CITRATE 300 ML BOTTLE PO PRN (14:12)
[2019-06-19] MEDS ORDERED: MAGNESIUM HYDROX 2400MG/30ML ORAL SUSPENSION 30 ML CUP PO PRN (14:12)
[2019-06-19 14:31] VITALS: BMI 22.9
[2019-06-19 17:18] LABS: HEMATOCRIT 41.4 % (35.4-49); MCH 31.2 pg (25.7-33.7); MCHC 33.8 g/dl (32.0-35.9); MEAN CELL VOLUME 92.3 fl (80-96); MEAN PLT VOLUME 9.4 fl (7.5-11.1); PLATELET COUNT 241 K/MM3 (134-434); RBC 4.49 M/mm3 (4.00-5.60); RDW 14.4 % (11.9-15.9); WHITE BLOOD COUNT 4.1 K/mm3 (4.0-10.0)
[2019-06-19 17:25] LABS: ALBUMIN 3.8 g/dl (3.4-5.0); BILIRUBIN,TOTAL 0.3 mg/dL (0.2-1); BLOOD UREA NITROGEN 16.4 mg/dL (7-18); CALCIUM 9.2 mg/dL (8.5-10.1); CREATININE 1.3 mg/dL (0.55-1.3); POTASSIUM 4.4 mmol/L (3.5-5.1); TOT PROT 7.2 g/dl (6.4-8.2)
[2019-06-19] MEDS: chlordiazePOXIDE HCL 25 MG CAPSULE PO SCH ×2 (18:02→23:43)
[2019-06-19] MEDS: THIAMINE HCL 100 MG TABLET (FP) PO SCH (23:43)
[2019-06-20] MEDS: chlordiazePOXIDE HCL 25 MG CAPSULE PO SCH ×4 (07:18→23:38)
[2019-06-20] MEDS: PRENATAL VITAMINS W/ FOLIC ACID TABLET (FP) PO SCH (12:08)
--- NOTE | 2019-06-20 14:47 | PN ---
S CIWA - CIWA Score Nausea/Vomitin Muscle Tremors: 2 Anxiety: 2 Agitation: 2 Paroxysmal Sweats: No Perspiration Orientation: 0-Oriented Tacttile Disturbances: 1-Very Mild Itch/Numbness Auditory Disturbances: 0-None Visual Disturbances: 0-None Headache: 2-Mild CIWA-Ar Total Score: 11 BHS Progress Note (SOAP) Subjective: alert,irritable,anxious,interrupted sleep,tremor Objective: 06/20/19 14:44 Laboratory Last Values WBC 4.1 K/mm3 (4.0-10.0) 06/19/19 14:30 RBC 4.49 M/mm3 (4.00-5.60) 06/19/19 14:30 Hgb 14.0 GM/dL (11.7-16.9) 06/19/19 14:30 Hct 41.4 % (35.4-49) 06/19/19 14:30 MCV 92.3 fl (80-96) 06/19/19 14:30 MCH 31.2 pg (25.7-33.7) 06/19/19 14:30 MCHC 33.8 g/dl (32.0-35.9) 06/19/19 14:30 RDW 14.4 % (11.9-15.9) 06/19/19 14:30 Plt Count 241 K/MM3 (134-434) 06/19/19 14:30 MPV 9.4 fl (7.5-11.1) 06/19/19 14:30 Sodium 140 mmol/L (136-145) 06/19/19 14:30 Potassium 4.4 mmol/L (3.5-5.1) 06/19/19 14:30 Chloride 107 mmol/L (98-107) 06/19/19 14:30 Carbon Dioxide 28 mmol/L (21-32) 06/19/19 14:30 Anion Gap 5 MMOL/L (8-16) L 06/19/19 14:30 BUN 16.4 mg/dL (7-18) 06/19/19 14:30 Creatinine 1.3 mg/dL (0.55-1.3) 06/19/19 14:30 Est GFR (CKD-EPI)AfAm 73.22 06/19/19 14:30 Est GFR (CKD-EPI)NonAf 63.18 06/19/19 14:30 Random Glucose 107 mg/dL (74-106) H 06/19/19 14:30 Calcium 9.2 mg/dL (8.5-10.1) 06/19/19 14:30 Total Bilirubin 0.3 mg/dL (0.2-1) 06/19/19 14:30 AST 22 U/L (15-37) 06/19/19 14:30 ALT 24 U/L (13-61) 06/19/19 14:30 Alkaline Phosphatase 85 U/L (45-117) 06/19/19 14:30 Total Protein 7.2 g/dl (6.4-8.2) 06/19/19 14:30 Albumin 3.8 g/dl (3.4-5.0) 06/19/19 14:30 RPR Titer Nonreactive (NONREACTIVE) 06/19/19 14:30 Assessment: 06/20/19 14:46 withdrawal symptom Plan: continue detox librium regimen
[2019-06-20] MEDS: THIAMINE HCL 100 MG TABLET (FP) PO SCH (23:39)
[2019-06-21] MEDS: chlordiazePOXIDE HCL 25 MG CAPSULE PO SCH ×4 (05:57→22:26)
[2019-06-21] MEDS: PRENATAL VITAMINS W/ FOLIC ACID TABLET (FP) PO SCH (11:11)
--- NOTE | 2019-06-21 12:31 | PN ---
BHS CIWA - CIWA Score Nausea/Vomitin-Mild Nausea/No Vomiting Muscle Tremors: 2 Anxiety: 1-Mildly Anxious Agitation: 1-Slight > Activity Paroxysmal Sweats: No Perspiration Orientation: 0-Oriented Tacttile Disturbances: 0-None Auditory Disturbances: 0-None Visual Disturbances: 0-None Headache: 1-Very Mild CIWA-Ar Total Score: 6 BHS Progress Note (SOAP) Subjective: pt admittd for alcohol detox- has no complaints today. O: Vital Signs - 24 hr 06/20/19 06/20/19 06/21/19 13:40 21:15 00:31 Temperature 99.3 F 96.8 F L Pulse Rate 90 93 H Respiratory 18 16 16 Rate Blood Pressure 113/68 104/62 06/21/19 06/21/19 06/21/19 03:47 07:21 09:02 Temperature 97.9 F 99.3 F Pulse Rate 77 103 H Respiratory 18 18 20 Rate Blood Pressure 101/66 121/65 Laboratory Tests 06/19/19 06/19/19 06/19/19 14:30 14:30 14:30 WBC 4.1 RBC 4.49 Hgb 14.0 Hct 41.4 MCV 92.3 MCH 31.2 MCHC 33.8 RDW 14.4 Plt Count 241 MPV 9.4 Sodium 140 Potassium 4.4 Chloride 107 Carbon Dioxide 28 Anion Gap 5 L BUN 16.4 Creatinine 1.3 Est GFR (CKD-EPI)AfAm 73.22 Est GFR (CKD-EPI)NonAf 63.18 Random Glucose 107 H Calcium 9.2 Total Bilirubin 0.3 AST 22 ALT 24 Alkaline Phosphatase 85 Total Protein 7.2 Albumin 3.8 RPR Titer Nonreactive a/p: AUD- continue detox protocol, pt without complaints
[2019-06-21] MEDS: THIAMINE HCL 100 MG TABLET (FP) PO SCH (22:26)
[2019-06-21] MEDS: MELATONIN 5 MG TABLETS PO PRN (22:26)
[2019-06-22] MEDS ORDERED: chlordiazePOXIDE HCL 10 MG CAPSULE PO PRN
[2019-06-22] MEDS: chlordiazePOXIDE HCL 10 MG CAPSULE PO SCH ×4 (07:11→22:35)
[2019-06-22] MEDS: PRENATAL VITAMINS W/ FOLIC ACID TABLET (FP) PO SCH (11:05)
--- NOTE | 2019-06-22 11:24 | PN ---
BHS CIWA - CIWA Score Nausea/Vomitin-Mild Nausea/No Vomiting Muscle Tremors: 2 Anxiety: 1-Mildly Anxious Agitation: 1-Slight > Activity Paroxysmal Sweats: No Perspiration Orientation: 0-Oriented Tacttile Disturbances: 0-None Auditory Disturbances: 0-None Visual Disturbances: 0-None Headache: 1-Very Mild CIWA-Ar Total Score: 6 BHS Progress Note (SOAP) Subjective: no complaints today, says feeling OK O: Vital Signs - 24 hr 06/21/19 06/21/19 06/21/19 13:24 16:53 20:30 Temperature 98.4 F 98.8 F 99 F Pulse Rate 82 98 H 94 H Respiratory 16 17 18 Rate Blood Pressure 114/74 124/73 144/76 06/22/19 06/22/19 06/22/19 00:41 04:31 05:35 Temperature 97.9 F Pulse Rate 72 Respiratory 18 18 18 Rate Blood Pressure 142/74 06/22/19 09:43 Temperature 99.5 F Pulse Rate 95 H Respiratory 18 Rate Blood Pressure 154/71 Laboratory Tests 06/19/19 06/19/19 06/19/19 14:30 14:30 14:30 WBC 4.1 RBC 4.49 Hgb 14.0 Hct 41.4 MCV 92.3 MCH 31.2 MCHC 33.8 RDW 14.4 Plt Count 241 MPV 9.4 Sodium 140 Potassium 4.4 Chloride 107 Carbon Dioxide 28 Anion Gap 5 L BUN 16.4 Creatinine 1.3 Est GFR (CKD-EPI)AfAm 73.22 Est GFR (CKD-EPI)NonAf 63.18 Random Glucose 107 H Calcium 9.2 Total Bilirubin 0.3 AST 22 ALT 24 Alkaline Phosphatase 85 Total Protein 7.2 Albumin 3.8 RPR Titer Nonreactive increased BP a/p: AUD- continue detox protocol High BP- pt with no hx. will monitor
[2019-06-22] MEDS: MELATONIN 5 MG TABLETS PO PRN (22:35)
[2019-06-22] MEDS: THIAMINE HCL 100 MG TABLET (FP) PO SCH (22:35)
[2019-06-22] MEDS: hydrOXYzine PAMOATE 25 MG CAPSULE (FP) PO PRN (22:36)
[2019-06-23] MEDS: chlordiazePOXIDE HCL 10 MG CAPSULE PO SCH ×2 (06:11→17:31)
[2019-06-23] MEDS: PRENATAL VITAMINS W/ FOLIC ACID TABLET (FP) PO SCH (11:25)
--- NOTE | 2019-06-23 12:19 | PN ---
S CIWA - CIWA Score Nausea/Vomitin-No Nausea/No Vomiting Muscle Tremors: 1-None Visible, but [place] Anxiety: 0-No Anxiety, at Ease Agitation: 0-Normal Activity Paroxysmal Sweats: 2 Orientation: 0-Oriented Tacttile Disturbances: 0-None Auditory Disturbances: 0-None Visual Disturbances: 0-None Headache: 2-Mild CIWA-Ar Total Score: 5 BHS Progress Note (SOAP) Subjective: Patient admitted for Etoh withdrawal symptoms. He complains nasal congestion, chills and headache. Objective: 06/23/19 12:24 Laboratory Tests 06/19/19 06/19/19 06/19/19 14:30 14:30 14:30 WBC 4.1 RBC 4.49 Hgb 14.0 Hct 41.4 MCV 92.3 MCH 31.2 MCHC 33.8 RDW 14.4 Plt Count 241 MPV 9.4 Sodium 140 Potassium 4.4 Chloride 107 Carbon Dioxide 28 Anion Gap 5 L BUN 16.4 Creatinine 1.3 Est GFR (CKD-EPI)AfAm 73.22 Est GFR (CKD-EPI)NonAf 63.18 Random Glucose 107 H Calcium 9.2 Total Bilirubin 0.3 AST 22 ALT 24 Alkaline Phosphatase 85 Total Protein 7.2 Albumin 3.8 RPR Titer Nonreactive Vital Signs Temperature 97.9 F 06/23/19 11:38 Pulse Rate 70 06/23/19 11:38 Respiratory Rate 15 06/23/19 11:38 Blood Pressure 117/75 06/23/19 11:38 O2 Sat by Pulse Oximetry (%) PE alert and oriented x 3 skin warm and dry +perrla, eoms intact bl +nasal congestion ext full rom, amb ad jewell no tremors Assessment: 06/23/19 12:25 ETOH withdrawal sx Plan: Continue detox encourage oral fluids monitor clinically
[2019-06-23] MEDS: hydrOXYzine PAMOATE 25 MG CAPSULE (FP) PO PRN (22:19)
[2019-06-23] MEDS: THIAMINE HCL 100 MG TABLET (FP) PO SCH (22:19)
[2019-06-23] MEDS: MELATONIN 5 MG TABLETS PO PRN (22:20)
[2019-06-24] MEDS ORDERED: chlordiazePOXIDE HCL 10 MG CAPSULE PO ONE (05:00)
[2019-06-24 06:45] VITALS: BP 134/72; PULSE 70; TEMP 97.7
--- NOTE | 2019-06-24 08:30 | PN ---
[facility] CIWA - CIWA Score Nausea/Vomitin-No Nausea/No Vomiting Muscle Tremors: 1-None Visible, but [place] Anxiety: 0-No Anxiety, at Ease Agitation: 0-Normal Activity Paroxysmal Sweats: No Perspiration Orientation: 0-Oriented Tacttile Disturbances: 0-None Auditory Disturbances: 0-None Visual Disturbances: 0-None Headache: 0-None Present CIWA-Ar Total Score: 1 S Progress Note (SOAP) Subjective: alert,no complaint Objective: 06/24/19 08:29 Vital Signs Temperature 97.7 F 06/24/19 06:44 Pulse Rate 70 06/24/19 06:44 Respiratory Rate 18 06/24/19 06:44 Blood Pressure 134/72 06/24/19 06:44 O2 Sat by Pulse Oximetry (%) Assessment: 06/24/19 08:29 detox completed,no withdrawal symptom Plan: patient refused to go to [facility],discharge home,follow up with after care program as arrangement
--- NOTE | 2019-06-24 08:35 | DS ---
[facility] Detox Discharge Summary Admission Date: 06/19/19 Discharge Date: 06/24/19 - History Present History: Alcohol Dependence, Cannabis Dependence, Cocaine Dependence, Opioid Dependence Additional Comments: alert,oriented x3 ambulation in the unit skin normal no abdominal pain stable for discharge, time spending on discharge 30 mins patient declined to to be picked up by [facility] from the unit Pertinent Past History: Vital Signs Temperature 97.7 F 06/24/19 06:44 Pulse Rate 70 06/24/19 06:44 Respiratory Rate 18 06/24/19 06:44 Blood Pressure 134/72 06/24/19 06:44 O2 Sat by Pulse Oximetry (%) - Physical Exam Results Vital Signs: Vital Signs Temperature 97.7 F 06/24/19 06:44 Pulse Rate 70 06/24/19 06:44 Respiratory Rate 18 06/24/19 06:44 Blood Pressure 134/72 06/24/19 06:44 O2 Sat by Pulse Oximetry (%) Pertinent Admission Physical Exam Findings: withdrawal s Vital Signs Temperature 97.7 F 06/24/19 06:44 Pulse Rate 70 06/24/19 06:44 Respiratory Rate 18 06/24/19 06:44 Blood Pressure 134/72 06/24/19 06:44 O2 Sat by Pulse Oximetry (%) Laboratory Last Values WBC 4.1 K/mm3 (4.0-10.0) 06/19/19 14:30 RBC 4.49 M/mm3 (4.00-5.60) 06/19/19 14:30 Hgb 14.0 GM/dL (11.7-16.9) 06/19/19 14:30 Hct 41.4 % (35.4-49) 06/19/19 14:30 MCV 92.3 fl (80-96) 06/19/19 14:30 MCH 31.2 pg (25.7-33.7) 06/19/19 14:30 MCHC 33.8 g/dl (32.0-35.9) 06/19/19 14:30 RDW 14.4 % (11.9-15.9) 06/19/19 14:30 Plt Count 241 K/MM3 (134-434) 06/19/19 14:30 MPV 9.4 fl (7.5-11.1) 06/19/19 14:30 Sodium 140 mmol/L (136-145) 06/19/19 14:30 Potassium 4.4 mmol/L (3.5-5.1) 06/19/19 14:30 Chloride 107 mmol/L (98-107) 06/19/19 14:30 Carbon Dioxide 28 mmol/L (21-32) 06/19/19 14:30 Anion Gap 5 MMOL/L (8-16) L 06/19/19 14:30 BUN 16.4 mg/dL (7-18) 06/19/19 14:30 Creatinine 1.3 mg/dL (0.55-1.3) 06/19/19 14:30 Est GFR (CKD-EPI)AfAm 73.22 06/19/19 14:30 Est GFR (CKD-EPI)NonAf 63.18 06/19/19 14:30 Random Glucose 107 mg/dL (74-106) H 06/19/19 14:30 Calcium 9.2 mg/dL (8.5-10.1) 06/19/19 14:30 Total Bilirubin 0.3 mg/dL (0.2-1) 06/19/19 14:30 AST 22 U/L (15-37) 06/19/19 14:30 ALT 24 U/L (13-61) 06/19/19 14:30 Alkaline Phosphatase 85 U/L (45-117) 06/19/19 14:30 Total Protein 7.2 g/dl (6.4-8.2) 06/19/19 14:30 Albumin 3.8 g/dl (3.4-5.0) 06/19/19 14:30 RPR Titer Nonreactive (NONREACTIVE) 06/19/19 14:30 symptom - Treatment Hospital Course: Detox Protocol Followed, Detoxed Safely, Responded well, Discharged Condition Good, Rehab Referral Accepted Patient has Accepted a Rehab Referral to: [facility] - Medication Discharge Medications: Ambulatory Orders NK [No Known Home Medication] 07/07/16 - Diagnosis (1) Alcohol dependence with uncomplicated withdrawal Current Visit: Yes Status: Acute (2) Cocaine dependence Current Visit: Yes Status: Acute (3) Nicotine dependence Current Visit: Yes Status: Acute (4) Cannabis dependence Current Visit: Yes Status: Chronic (5) Opioid dependence Current Visit: No Status: Acute - AMA Did Patient Leave Against Medical Advice: No
== END 2019-06-24 08:57 | disposition home or self-care (01) | DRG 774 ==
LOC: YASAS 12:37 → Y6N 14:41
PROVIDERS: ADMIT Allergy & Immunology; ATTEND Allergy & Immunology
PROC: HZ2ZZZZ Detoxification Services for Substance Abuse Treatment (ICD-10-PCS; principal; 2019-06-19)
DX: F10.230 Alcohol dependence with withdrawal, uncomplicated (principal); F14.20 Cocaine dependence, uncomplicated; F12.20 Cannabis dependence, uncomplicated; F17.210 Nicotine dependence, cigarettes, uncomplicated; R03.0 Elevated blood-pressure reading, without diagnosis of hypertension
CPT/HCPCS: 36415; 80053; 85027; 86593

== ENCOUNTER 2019-11-19 12:48 | Inpatient (IN) | payer OTHER ==
--- NOTE | 2019-11-19 13:11 | BHS.RME ---
Substance Use & Tx History - Substance Use History Alcohol Substance amount: 5-6 beers Frequency of use: Daily Substance route: Oral Date of Last Use: 11/19/19 (First use, age 18) Cannabis Substance amount: 4-5 rolls Frequency of use: Daily Substance route: Smoking Date of Last Use: 11/19/19 (first use, age 18) PCP Substance amount: 2 bags Frequency of use: Daily Substance route: Smoking Date of Last Use: 11/18/19 (started using 2.5 months ago) Physical/Psych/Mental Status - Behavior General Behavior: Increased activity (restlessness, agitation) Eye Contact: Normal - Cooperativeness Cooperativeness: Cooperative - Thinking Thought Processes: Tight, Logical - Physical Health Problems Is patient presently having any pain?: No Does patient presently have any injuries (include location): No Does patient currently have a fever: No CIWA Nausea/Vomitin-No Nausea/No Vomiting Muscle Tremors: 3 Anxiety: 6 Agitation: 3 Paroxysmal Sweats: No Perspiration Orientation: 1-Uncertain about Date Tacttile Disturbances: 0-None Auditory Disturbances: 0-None Visual Disturbances: 0-None Headache: 0-None Present CIWA-Ar Total Score: 13
--- NOTE | 2019-11-19 14:50 | HP ---
CIWA Score Nausea/Vomitin-No Nausea/No Vomiting Muscle Tremors: 3 Anxiety: 6 Agitation: 3 Paroxysmal Sweats: No Perspiration Orientation: 1-Uncertain about Date Tacttile Disturbances: 0-None Auditory Disturbances: 0-None Visual Disturbances: 0-None Headache: 0-None Present CIWA-Ar Total Score: 13 - Admission Criteria OASAS Guidelines: Admission for Medically Managed Detox: Requires at least one of the followin. CIWA greater than 12 2. Seizures within the past 24 hours 3. Delirium tremens within the past 24 hours 4. Hallucinations within the past 24 hours 5. Acute intervention needed for co occurring medical disorder 6. Acute intervention needed for co occurring psychiatric disorder 7. Severe withdrawal that cannot be handled at a lower level of care (continued vomiting, continued diarrhea, abnormal vital signs) requiring intravenous medication and/or fluids 8. Admitting History and Physical - Admission Chief Complaint: " I need to stop using." History of Present Illness: 54 year old male with history of alcohol dependence who relapsed recently. Alcohol: 5-6 beers daily 24 oz. started age 18 and last used today, blackout last night, endorses the need of eye intake clerk daily. Marijuana: 4-5 blunts daily, smoking since age 18 and last used today PCP: 2 blunts daily, started using consistently 1.5 months ago, last used yesterday PMH: None Psurg: None Psych: None CIWA=13 Urine Tox: THC, CICI, PCP Patient meets criteria for detox due to poor environment for recovery. Staying in [place] [facility]. History Source: Patient Limitations to Obtaining History: No Limitations - Past Surgical History Past Surgical History: Yes: None - Smoking History Smoking history: Current every day smoker Have you smoked in the past 12 months: Yes Aproximately how many cigarettes per day: 7 - Alcohol/Substance Use Hx Alcohol Use: Yes History of Substance Use: reports: Cocaine, Marijuana Date of Last Use: 11/19/19 - Social History Usual Living Arrangement: Yes: Alone Do you think of yourself as: Straight/Heterosexual ADL: Independent Occupation: unemployed History of Recent Travel: No Admission [facility] - [facility] Allergies/Adverse Reactions: Allergies Allergy/AdvReac Type Severity Reaction Status Date / Time No Known Allergies Allergy Verified 07/14/19 09:50 Exam Limitations: No Limitations - Ebola screening Have you traveled outside of the country in the last 21 days: No Have you had contact with anyone from an Ebola affected area: No Have you been sick,other than usual withdrawal symptoms: No - Review of Systems Constitutional: Chills, Diaphoresis, Unintentional Wgt. Loss EENT: reports: No Symptoms Reported Respiratory: reports: No Symptoms reported Cardiac: reports: No Symptoms Reported GI: reports: No Symptoms Reported : reports: No Symptoms Reported Musculoskeletal: reports: No Symptoms Reported Integumentary: reports: No Symptoms Reported Neuro: reports: No Symptoms reported Endocrine: reports: No Symptoms Reported Hematology: reports: No Symptoms Reported Psychiatric: reports: Judgement Intact, Mood/Affect Appropiate, Orientated x3, Agitated, Anxious Other Systems: Reviewed and Negative Patient History - Patient Medical History Hx Anemia: No Hx Asthma: No Hx Chronic Obstructive Pulmonary Disease (COPD): No Hx Cancer: No Hx Cardiac Disorders: No Hx Congestive Heart Failure: No Hx Hypertension: No Hx Hypercholesterolemia: No Hx Pacemaker: No HX Cerebrovascular Accident: No Hx Seizures: No Hx Dementia: No Hx Diabetes: No Hx Gastrointestinal Disorders: No Hx Liver Disease: No Hx Genitourinary Disorders: No Hx Sexually Transmitted Disorders: No Hx Renal Disease (ESRD): No Hx Thyroid Disease: No Hx Human Immunodeficiency Virus (HIV): No Hx Hepatitis C: No Hx Depression: No Hx Suicide Attempt: No Hx Bipolar Disorder: No Hx Schizophrenia: No - Patient Surgical History Past Surgical History: No Hx Neurologic Surgery: No Hx Cataract Extraction: No Hx Cardiac Surgery: No Hx Lung Surgery: No Hx Breast Surgery: No Hx Breast Biopsy: No Hx Abdominal Surgery: No Hx Appendectomy: No Hx Cholecystectomy: No Hx Genitourinary Surgery: No Hx Section: No Hx Orthopedic Surgery: No Anesthesia Reaction: No - PPD History Previous Implant?: Yes Documented Results: Negative w/proof Implanted On Prior [facility] Admission?: Yes Date: 09/20/18 Results: 0MM PPD to be Administered?: Yes - Smoking Cessation Smoking history: Current every day smoker Have you smoked in the past 12 months: Yes Aproximately how many cigarettes per day: 7 Cigars Per Day: 0 Hx Chewing Tobacco Use: No Initiated information on smoking cessation: Yes 'Breaking Loose' booklet given: 11/19/19 - Substance & Tx. History Hx Alcohol Use: Yes - Substances abused Alcohol Substance route: Oral Frequency: Daily Amount used: 5-6 beers Age of first use: 18 Date of last use: 11/19/19 Marijuana/Hashish Substance route: Smoking Frequency: Daily Amount used: 4-5 blunts Age of first use: 18 Date of last use: 11/19/19 PCP Substance route: Oral Frequency: Daily Amount used: 2 blunts Age of first use: 54 Date of last use: 11/18/19 Admission Physical Exam [facility] - Physical General Appearance: Yes: Mild Distress, Thin, Tremorous, Irritable, Sweating, Anxious HEENTM: Yes: EOMI, Hearing grossly Normal, Normal ENT Inspection, Normocephalic, Normal Voice, CORA, Pharynx Normal, Tm's normal Respiratory: Yes: Chest Non-Tender, Lungs Clear, Normal Breath Sounds, No Respiratory Distress, No Accessory Muscle Use Neck: Yes: No masses,lesions,Nodules, Supple, Trachea in good position Breast: Yes: Within Normal Limits Cardiology: Yes: Regular Rhythm, Regular Rate, S1, S2 Abdominal: Yes: Normal Bowel Sounds, Non Tender, Flat, Soft Genitourinary: Yes: Within Normal Limits Back: Yes: Normal Inspection Musculoskeletal: Yes: full range of Motion, Gait Steady, Pelvis Stable Extremities: Yes: Normal Capillary Refill, Normal Inspection, Normal Range of Motion, Non-Tender Neurological: Yes: mathematician research II-XII NML intact, Fully Oriented, Alert, Motor Strength 5/5, Normal Mood/Affect, Normal Response Integumentary: Yes: Normal Color, Dry, Warm Lymphatic: Yes: Within Normal Limits - Diagnostic (1) Alcohol dependence with uncomplicated withdrawal Current Visit: Yes Status: Chronic (2) Cannabis dependence Current Visit: Yes Status: Chronic (3) Cocaine dependence Current Visit: Yes Status: Chronic Qualifiers: Substance use status: uncomplicated Qualified Code(s): F14.20 - Cocaine dependence, uncomplicated (4) Nicotine dependence Current Visit: Yes Status: Chronic Qualifiers: Nicotine product type: cigarettes Substance use status: uncomplicated Qualified Code(s): F17.210 - Nicotine dependence, cigarettes, uncomplicated Cleared for Admission [facility] - Detox or Rehab [facility] Level of Care: Medically Managed Detox Regimen/Protocol: Librium Claeared for Rehab Admission: No Screened but not Admitted - Documentation of Visit Screened but not Admitted: No Breathalyzer - Breathalyzer Breathalyzer: 0 Urine Drug Screen - Test Device Lot number: [id number] Expiration date: 04/06/21 - Control Is test valid?: Yes - Results Drug screen NEGATIVE: No Urine drug screen results: THC-Marijuana, CICI-Cocaine Inpatient Rehab Admission - Rehab Decision to Admit Inpatient rehab admission?: No
[2019-11-19] MEDS ORDERED: chlordiazePOXIDE HCL 25 MG CAPSULE PO PRN (14:57)
[2019-11-19] MEDS ORDERED: MAG HYDROX/AL HYDROX/SIMETH 30 ML UNIT-DOSE CUP PO PRN (14:57)
[2019-11-19] MEDS ORDERED: BISMUTH SUBSALICYLATE 262 MG/15 ML BTL PO PRN (14:57)
[2019-11-19] MEDS ORDERED: MENTHOL/PHENOL 1 EACH UD MM PRN (14:57)
[2019-11-19] MEDS ORDERED: ONDANSETRON *ODT* 4 MG TABLET SL ONE (14:57)
[2019-11-19] MEDS ORDERED: ACETAMINOPHEN 325 MG TABLET (FP) PO PRN ×2 (14:57)
[2019-11-19] MEDS ORDERED: MAGNESIUM HYDROX 2400MG/30ML ORAL SUSPENSION 30 ML CUP PO PRN (14:57)
[2019-11-19] MEDS ORDERED: MAGNESIUM CITRATE 300 ML BOTTLE PO PRN (14:57)
[2019-11-19] MEDS ORDERED: METHOCARBAMOL 500 MG TABLET PO PRN (14:57)
[2019-11-19] MEDS ORDERED: IBUPROFEN 400 MG TABLET (FP) PO PRN (14:57)
[2019-11-19] MEDS ORDERED: NICOTINE POLACRILEX 2 MG GUM BUC PRN (14:57)
[2019-11-19 15:23] VITALS: BMI 20.9
[2019-11-19] MEDS ORDERED: TUBERCULIN PPD 5 TU/0.1ML VIAL ID ONE (16:24)
[2019-11-19] MEDS: PRENATAL VITAMINS W/ FOLIC ACID TABLET (FP) PO SCH (16:27)
[2019-11-19] MEDS: NICOTINE 7 MG/24 HOURS TOPICAL PATCH TD SCH (16:30)
[2019-11-19] MEDS: chlordiazePOXIDE HCL 25 MG CAPSULE PO SCH ×2 (17:03→22:16)
[2019-11-19] MEDS: hydrOXYzine PAMOATE 25 MG CAPSULE (FP) PO SCH ×2 (17:04→22:16)
--- NOTE | 2019-11-19 18:07 | CONSULT ---
[facility] Psychiatric Consult - Data Date of interview: 11/19/19 Admission source: MARY
--- NOTE | 2019-11-19 18:17 | PN ---
S Progress Note Note: Psychiatry Attending's note : Came to see patient for psychiatric interview. Evaluation cannot be performed at this time. Mr Fonseca is found asleep. No evidence of distress. Discussed with nurse on duty.
[2019-11-19] MEDS: MELATONIN 5 MG TABLETS PO SCH (22:16)
[2019-11-19] MEDS: THIAMINE HCL 100 MG TABLET (FP) PO SCH (22:16)
[2019-11-20] MEDS: hydrOXYzine PAMOATE 25 MG CAPSULE (FP) PO SCH ×5 (06:48→22:41)
[2019-11-20] MEDS: chlordiazePOXIDE HCL 25 MG CAPSULE PO SCH ×4 (06:48→22:43)
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
[2019-11-20] MEDS: NICOTINE 7 MG/24 HOURS TOPICAL PATCH TD SCH (11:12)
[2019-11-20] MEDS: PRENATAL VITAMINS W/ FOLIC ACID TABLET (FP) PO SCH (11:12)
[2019-11-20 11:19] LABS: HEMOGLOBIN 14.5 GM/dL (11.7-16.9); MCH 30.6 pg (25.7-33.7); MCHC 32.8 g/dl (32.0-35.9); MEAN CELL VOLUME 93.2 fl (80-96); MEAN PLT VOLUME 9.5 fl (7.5-11.1); PLATELET COUNT 265 K/MM3 (134-434); RBC 4.73 M/mm3 (4.00-5.60); RDW 15.8 % (11.9-15.9); WHITE BLOOD COUNT 4.3 K/mm3 (4.0-10.0)
[2019-11-20 11:46] LABS: BILIRUBIN,TOTAL 0.7 mg/dL (0.2-1); BLOOD UREA NITROGEN 15.8 mg/dL (7-18); CREATININE 1.4 mg/dL (0.55-1.3); POTASSIUM 4.5 mmol/L (3.5-5.1); TOT PROT 7.7 g/dl (6.4-8.2)
--- NOTE | 2019-11-20 12:59 | PN ---
S CIWA - CIWA Score Nausea/Vomitin-No Nausea/No Vomiting Muscle Tremors: 1-None Visible, but [place] Anxiety: 4-Mod. Anxious/Guarded Agitation: 2 Paroxysmal Sweats: No Perspiration Orientation: 0-Oriented Tacttile Disturbances: 0-None Auditory Disturbances: 0-None Visual Disturbances: 0-None Headache: 0-None Present CIWA-Ar Total Score: 7 BHS Progress Note (SOAP) Subjective: Pt is a 54 y/o male admitted to detox for alcohol withdrawal sx. Reports medication effective for his w/s and slept well. slight anxiety and tiredness. Says wants to rest. Objective: 11/20/19 13:00 Vital Signs - 24 hr 11/19/19 11/19/19 11/19/19 15:21 16:00 20:27 Temperature 98.4 F 98.2 F 97.5 F L Pulse Rate 79 66 61 Respiratory 20 18 18 Rate Blood Pressure 111/5 L 110/68 104/54 L O2 Sat by Pulse 95 95 Oximetry (%) 11/20/19 06:19 Temperature 98.4 F Pulse Rate 60 Respiratory 18 Rate Blood Pressure 115/77 O2 Sat by Pulse 94 L Oximetry (%) Laboratory Tests 11/20/19 11/20/19 11/20/19 07:30 07:30 07:30 WBC 4.3 RBC 4.73 Hgb 14.5 Hct 44.0 MCV 93.2 MCH 30.6 MCHC 32.8 RDW 15.8 Plt Count 265 MPV 9.5 Sodium 138 Potassium 4.5 Chloride 104 Carbon Dioxide 28 Anion Gap 5 L BUN 15.8 Creatinine 1.4 H Est GFR (CKD-EPI)AfAm 66.48 Est GFR (CKD-EPI)NonAf 57.36 Random Glucose 108 H Calcium 9.0 Total Bilirubin 0.7 AST 25 ALT 24 Alkaline Phosphatase 78 Total Protein 7.7 Albumin 4.0 Syphilis Serology Non-reactive covid-19 result pending labs noted Alert o x 3 nad laying in bed but communicated coherently Assessment: 11/20/19 13:01 withdrawal sx Alcohol use disorder Plan: cont detox-librium regimen increase po fluids maintain safety UA today
[2019-11-20] MEDS ORDERED: SUVOREXANT 10 MG TABLET PO PRN (22:00)
[2019-11-20] MEDS: MELATONIN 5 MG TABLETS PO SCH (22:41)
[2019-11-20] MEDS: THIAMINE HCL 100 MG TABLET (FP) PO SCH (22:42)
[2019-11-21] MEDS: chlordiazePOXIDE HCL 25 MG CAPSULE PO SCH ×4 (06:34→22:41)
[2019-11-21] MEDS: hydrOXYzine PAMOATE 25 MG CAPSULE (FP) PO SCH ×5 (06:34→22:41)
[2019-11-21] MEDS: PRENATAL VITAMINS W/ FOLIC ACID TABLET (FP) PO SCH (10:05)
[2019-11-21] MEDS: NICOTINE 7 MG/24 HOURS TOPICAL PATCH TD SCH (10:05)
--- NOTE | 2019-11-21 13:00 | PN ---
[facility] CIWA - CIWA Score Nausea/Vomitin-No Nausea/No Vomiting Muscle Tremors: 2 Anxiety: 4-Mod. Anxious/Guarded Agitation: 3 Paroxysmal Sweats: No Perspiration Orientation: 0-Oriented Tacttile Disturbances: 0-None Auditory Disturbances: 0-None Visual Disturbances: 0-None Headache: 0-None Present CIWA-Ar Total Score: 9 BHS Progress Note (SOAP) Subjective: Slight Anxiety and irritability and reports detox proceeding well. Objective: 11/21/19 12:58 Vital Signs - 24 hr 11/20/19 11/20/19 11/20/19 13:10 16:55 21:00 Temperature 97.1 F L 97.8 F 97.1 F L Pulse Rate 74 69 64 Respiratory 16 18 16 Rate Blood Pressure 110/59 L 100/70 99/61 O2 Sat by Pulse 95 96 Oximetry (%) 11/21/19 11/21/19 07:00 09:56 Temperature 98.0 F 98.6 F Pulse Rate 61 68 Respiratory 16 16 Rate Blood Pressure 110/53 L 98/65 O2 Sat by Pulse 96 96 Oximetry (%) Laboratory Tests 11/19/19 11/20/19 11/20/19 15:30 07:30 07:30 WBC 4.3 RBC 4.73 Hgb 14.5 Hct 44.0 MCV 93.2 MCH 30.6 MCHC 32.8 RDW 15.8 Plt Count 265 MPV 9.5 Sodium Potassium Chloride Carbon Dioxide Anion Gap BUN Creatinine Est GFR (CKD-EPI)AfAm Est GFR (CKD-EPI)NonAf Random Glucose Calcium Total Bilirubin AST ALT Alkaline Phosphatase Total Protein Albumin Syphilis Serology Non-reactive COVID-19 (MARIAM) Not detected 11/20/19 07:30 WBC RBC Hgb Hct MCV MCH MCHC RDW Plt Count MPV Sodium 138 Potassium 4.5 Chloride 104 Carbon Dioxide 28 Anion Gap 5 L BUN 15.8 Creatinine 1.4 H Est GFR (CKD-EPI)AfAm 66.48 Est GFR (CKD-EPI)NonAf 57.36 Random Glucose 108 H Calcium 9.0 Total Bilirubin 0.7 AST 25 ALT 24 Alkaline Phosphatase 78 Total Protein 7.7 Albumin 4.0 Syphilis Serology COVID-19 (MARIAM) covid-19 result not detected Alert o x 3 nad oob ambulating with steady gait Assessment: 11/21/19 12:58 withdrawal sx Plan: cont. detox increase po fluids maintain safety
[2019-11-21] MEDS: MELATONIN 5 MG TABLETS PO SCH (22:41)
[2019-11-21] MEDS: THIAMINE HCL 100 MG TABLET (FP) PO SCH (22:41)
[2019-11-22] MEDS ORDERED: chlordiazePOXIDE HCL 10 MG CAPSULE PO PRN
[2019-11-22] MEDS: chlordiazePOXIDE HCL 10 MG CAPSULE PO SCH ×2 (05:33→10:21)
[2019-11-22] MEDS: hydrOXYzine PAMOATE 25 MG CAPSULE (FP) PO SCH ×3 (05:33→14:30)
[2019-11-22] MEDS: NICOTINE 7 MG/24 HOURS TOPICAL PATCH TD SCH (10:21)
[2019-11-22] MEDS: PRENATAL VITAMINS W/ FOLIC ACID TABLET (FP) PO SCH (10:22)
--- NOTE | 2019-11-22 14:30 | DS ---
[facility] Detox Discharge Summary Admission Date: 11/19/19 Discharge Date: 11/22/19 - History Present History: Alcohol Dependence, Cannabis Dependence, Cocaine Dependence, Pcp Dependence Additional Comments: Pt reports he has no current PCP. Recommended to pt to follow up at [facility] @ [address] [place], [id number]. Pertinent Past History: Denied - Physical Exam Results Vital Signs: Vital Signs Temperature 98.9 F 11/22/19 06:01 Pulse Rate 58 L 11/22/19 06:01 Respiratory Rate 18 11/22/19 06:01 Blood Pressure 102/65 11/22/19 06:01 O2 Sat by Pulse Oximetry (%) 96 11/22/19 06:01 VSS Alert o x3 Neck;Supple nad oob ambulating with steady gait Active ROM all extremities Pertinent Admission Physical Exam Findings: Laboratory Tests 11/19/19 11/20/19 11/20/19 15:30 07:30 07:30 WBC 4.3 RBC 4.73 Hgb 14.5 Hct 44.0 MCV 93.2 MCH 30.6 MCHC 32.8 RDW 15.8 Plt Count 265 MPV 9.5 Sodium Potassium Chloride Carbon Dioxide Anion Gap BUN Creatinine Est GFR (CKD-EPI)AfAm Est GFR (CKD-EPI)NonAf Random Glucose Calcium Total Bilirubin AST ALT Alkaline Phosphatase Total Protein Albumin Syphilis Serology Non-reactive COVID-19 (MARIAM) Not detected 11/20/19 07:30 WBC RBC Hgb Hct MCV MCH MCHC RDW Plt Count MPV Sodium 138 Potassium 4.5 Chloride 104 Carbon Dioxide 28 Anion Gap 5 L BUN 15.8 Creatinine 1.4 H Est GFR (CKD-EPI)AfAm 66.48 Est GFR (CKD-EPI)NonAf 57.36 Random Glucose 108 H Calcium 9.0 Total Bilirubin 0.7 AST 25 ALT 24 Alkaline Phosphatase 78 Total Protein 7.7 Albumin 4.0 Syphilis Serology COVID-19 (MARIAM) Covid-19 not detected - Treatment Hospital Course: Detox Protocol Followed, Detoxed Safely, Responded well, Discharged Condition Good, Rehab Referral Accepted Patient has Accepted a Rehab Referral to: [facility] - Medication Discharge Medications: Ambulatory Orders NK [No Known Home Medication] 07/07/16 - Diagnosis (1) Alcohol dependence with uncomplicated withdrawal Status: Acute (2) Cannabis dependence Status: Acute (3) Nicotine dependence Status: Acute Qualifiers: Nicotine product type: cigarettes Substance use status: in withdrawal Qualified Code(s): F17.213 - Nicotine dependence, cigarettes, with withdrawal (4) Cocaine dependence, uncomplicated Status: Acute (5) Poor dentition Status: Chronic - AMA Did Patient Leave Against Medical Advice: No
[2019-11-22 15:31] VITALS: BP 119/60; PULSE 71; TEMP 98
[2019-11-23] MEDS ORDERED: chlordiazePOXIDE HCL 10 MG CAPSULE PO SCH (05:00)
[2019-11-24] MEDS ORDERED: chlordiazePOXIDE HCL 10 MG CAPSULE PO ONE (05:00)
== END 2019-11-22 14:50 | disposition home or self-care (01) | DRG 774 ==
LOC: YASAS 12:48 → Y5N DETOX 15:01
PROVIDERS: ADMIT Allergy & Immunology; ATTEND Allergy & Immunology
PROC: HZ2ZZZZ Detoxification Services for Substance Abuse Treatment (ICD-10-PCS; principal; 2019-11-19)
DX: F10.230 Alcohol dependence with withdrawal, uncomplicated (principal); F14.20 Cocaine dependence, uncomplicated; F16.20 Hallucinogen dependence, uncomplicated; F12.20 Cannabis dependence, uncomplicated; F17.210 Nicotine dependence, cigarettes, uncomplicated; F19.24 Other psychoactive substance dependence with psychoactive substance-induced mood disorder; F19.282 Other psychoactive substance dependence with psychoactive substance-induced sleep disorder; K08.89 Other specified disorders of teeth and supporting structures
CPT/HCPCS: 36415; 80053; 85027; 86780; U0003

== ENCOUNTER 2020-01-21 09:04 | Inpatient (IN) | payer OTHER ==
--- NOTE | 2020-01-21 10:11 | BHS.RME ---
Substance Use & Tx History - Substance Use History Alcohol Substance amount: 10 beer x 12-16 ounce Frequency of use: Daily Substance route: Oral Date of Last Use: 01/21/20 (No seizures. Blackout 2 days ago. 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) Cocaine-Crack Substance amount: one gram Frequency of use: Daily Substance route: Smoking Date of Last Use: 01/21/20 (First use in his 20s) PCP Substance amount: 3-4 blunts Frequency of use: Daily Substance route: Smoking Date of Last Use: 01/21/20 (First use age 53 y) Physical/Psych/Mental Status - Behavior General Behavior: Decreased activity Eye Contact: Normal - Cooperativeness Cooperativeness: Cooperative - Thinking Thought Processes: Tight Thought content: Future oriented - Physical Health Problems Is patient presently having any pain?: No Does patient presently have any injuries (include location): No Does patient currently have a fever: No CIWA Nausea/Vomitin-Mild Nausea/No Vomiting Muscle Tremors: 4-Moderate,w/Arms Extend Anxiety: 4-Mod. Anxious/Guarded Agitation: 2 Paroxysmal Sweats: 1-Minimal Palms Moist Orientation: 0-Oriented Tacttile Disturbances: 0-None Auditory Disturbances: 0-None Visual Disturbances: 0-None Headache: 0-None Present CIWA-Ar Total Score: 12
[2020-01-21 10:45] VITALS: BMI 21.1
[2020-01-21] MEDS ORDERED: MAGNESIUM CITRATE 300 ML BOTTLE PO PRN (11:19)
[2020-01-21] MEDS ORDERED: METHOCARBAMOL 500 MG TABLET PO PRN (11:19)
[2020-01-21] MEDS ORDERED: MENTHOL/PHENOL 1 EACH UD MM PRN (11:19)
[2020-01-21] MEDS ORDERED: MAG HYDROX/AL HYDROX/SIMETH 30 ML UNIT-DOSE CUP PO PRN (11:19)
[2020-01-21] MEDS ORDERED: NICOTINE POLACRILEX 2 MG GUM BUC PRN (11:19)
[2020-01-21] MEDS ORDERED: chlordiazePOXIDE HCL 25 MG CAPSULE PO PRN (11:19)
[2020-01-21] MEDS ORDERED: BISMUTH SUBSALICYLATE 262 MG/15 ML BTL PO PRN (11:19)
[2020-01-21] MEDS ORDERED: IBUPROFEN 400 MG TABLET (FP) PO PRN (11:19)
[2020-01-21] MEDS ORDERED: ONDANSETRON *ODT* 4 MG TABLET SL PRN (11:19)
[2020-01-21] MEDS ORDERED: ACETAMINOPHEN 325 MG TABLET (FP) PO PRN ×2 (11:19)
[2020-01-21] MEDS ORDERED: MAGNESIUM HYDROX 2400MG/30ML ORAL SUSPENSION 30 ML CUP PO PRN (11:19)
--- NOTE | 2020-01-21 11:19 | HP ---
CIWA Score Nausea/Vomitin-Mild Nausea/No Vomiting Muscle Tremors: 4-Moderate,w/Arms Extend Anxiety: 4-Mod. Anxious/Guarded Agitation: 2 Paroxysmal Sweats: 1-Minimal Palms Moist Orientation: 0-Oriented Tacttile Disturbances: 0-None Auditory Disturbances: 0-None Visual Disturbances: 0-None Headache: 0-None Present CIWA-Ar Total Score: 12 - Admission Criteria OASAS Guidelines: Admission for Medically Managed Detox: Requires at least one of the followin. CIWA greater than 12 2. Seizures within the past 24 hours 3. Delirium tremens within the past 24 hours 4. Hallucinations within the past 24 hours 5. Acute intervention needed for co occurring medical disorder 6. Acute intervention needed for co occurring psychiatric disorder 7. Severe withdrawal that cannot be handled at a lower level of care (continued vomiting, continued diarrhea, abnormal vital signs) requiring intravenous medication and/or fluids 8. Admitting History and Physical - Admission Chief Complaint: Mr. Fonseca is a 54 yo man who presents to [facility] requesting detox from alcohol use disorder. History of Present Illness: Mr. Fonseca is a 54 yo man who presents to [facility] requesting detox from alcohol use disorder. He was last here between November 18 and for detox which he completed. PMH/PSH/Psych/Legal: none SOC: homeless Substance Use History Alcohol Substance amount: 10 beer x 12-16 ounce Frequency of use: Daily Substance route: Oral Date of Last Use: 01/21/20 (No seizures. Blackout 2 days ago. 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) Cocaine-Crack Substance amount: one gram Frequency of use: Daily Substance route: Smoking Date of Last Use: 01/21/20 (First use in his 20s) PCP Substance amount: 3-4 blunts Frequency of use: Daily Substance route: Smoking Date of Last Use: 01/21/20 (First use age 53 y) History Source: Patient Limitations to Obtaining History: No Limitations - Past Surgical History Past Surgical History: Yes: None - Smoking History Smoking history: Current every day smoker Have you smoked in the past 12 months: Yes Aproximately how many cigarettes per day: 10 - Alcohol/Substance Use Hx Alcohol Use: Yes History of Substance Use: reports: Cocaine, Marijuana Date of Last Use: 11/19/19 - Social History ADL: Independent Occupation: unemployed History of Recent Travel: No Admission ROS BHS - HPI Allergies/Adverse Reactions: Allergies Allergy/AdvReac Type Severity Reaction Status Date / Time No Known Allergies Allergy Verified 01/21/20 10:35 Exam Limitations: No Limitations - Ebola screening Have you traveled outside of the country in the last 21 days: No Have you been sick,other than usual withdrawal symptoms: No Do you have a fever: No - Review of Systems Constitutional: Unintentional Wgt. Loss (30 lb loss in 3 mos) EENT: reports: Blurred Vision (he thinks he needs glasses) Respiratory: reports: No Symptoms reported Cardiac: reports: No Symptoms Reported GI: reports: Nausea : reports: No Symptoms Reported Musculoskeletal: reports: No Symptoms Reported Integumentary: reports: No Symptoms Reported Neuro: reports: No Symptoms reported Endocrine: reports: No Symptoms Reported Hematology: reports: No Symptoms Reported Psychiatric: reports: Anxious, Depressed Patient History - Patient Medical History Hx Anemia: No Hx Asthma: No Hx Chronic Obstructive Pulmonary Disease (COPD): No Hx Cancer: No Hx Cardiac Disorders: No Hx Congestive Heart Failure: No Hx Hypertension: No Hx Hypercholesterolemia: No Hx Pacemaker: No HX Cerebrovascular Accident: No Hx Seizures: No Hx Dementia: No Hx Diabetes: No Hx Gastrointestinal Disorders: No Hx Liver Disease: No Hx Genitourinary Disorders: No Hx Sexually Transmitted Disorders: No Hx Renal Disease (ESRD): No Hx Thyroid Disease: No Hx Human Immunodeficiency Virus (HIV): No Hx Hepatitis C: No Hx Depression: Yes Hx Suicide Attempt: No Hx Bipolar Disorder: No Hx Schizophrenia: No - Patient Surgical History Past Surgical History: No Hx Neurologic Surgery: No Hx Cataract Extraction: No Hx Cardiac Surgery: No Hx Lung Surgery: No Hx Breast Surgery: No Hx Breast Biopsy: No Hx Abdominal Surgery: No Hx Appendectomy: No Hx Cholecystectomy: No Hx Genitourinary Surgery: No Hx Section: No Hx Orthopedic Surgery: No Anesthesia Reaction: No - PPD History Previous Implant?: Yes Documented Results: Negative w/proof Date: 11/21/19 Results: 0MM - Smoking Cessation Smoking history: Current every day smoker Have you smoked in the past 12 months: Yes Aproximately how many cigarettes per day: 10 Cigars Per Day: 0 Hx Chewing Tobacco Use: No Initiated information on smoking cessation: Yes 'Breaking Loose' booklet given: 01/21/20 - Substances abused Alcohol Substance route: Oral Frequency: Daily Amount used: 10 BEERS, GIN Age of first use: 17 Date of last use: 01/21/20 Admission Physical Exam [facility] - Vital Signs Vital Signs: Vital Signs - 24 hr 01/21/20 10:43 Temperature 97.2 F L Pulse Rate 74 Respiratory 16 Rate Blood Pressure 122/74 - Physical General Appearance: Yes: No Apparent Distress, Nourished, Thin, Anxious HEENTM: Yes: EOMI, Hearing grossly Normal, Normocephalic, Normal Voice Respiratory: Yes: Lungs Clear, No Respiratory Distress, No Accessory Muscle Use Neck: Yes: Within Normal Limits, Supple Breast: Yes: Breast Exam Deferred Cardiology: Yes: Regular Rhythm, Regular Rate Abdominal: Yes: Normal Bowel Sounds, Non Tender, Flat, Soft Genitourinary: Yes: Other ( deferred) Extremities: Yes: Normal Inspection, Non-Tender Neurological: Yes: Alert, Normal Response Integumentary: Yes: Normal Color, Dry, Warm - Diagnostic (1) Phencyclidine (PCP) use disorder, mild, abuse Current Visit: Yes Status: Acute Comment: 1. substance use education (2) Alcohol dependence with uncomplicated withdrawal Current Visit: No Status: Acute Comment: 1. Admit to detox 2. Librium protocol 3. Routine labs 4. Substance use education (3) Cocaine dependence Current Visit: No Status: Acute Qualifiers: Substance use status: uncomplicated Qualified Code(s): F14.20 - Cocaine dependence, uncomplicated Comment: 1. Substance use education (4) Nicotine dependence Current Visit: No Status: Acute Qualifiers: Cleared for Admission [facility] - Detox or Rehab [facility] Level of Care: Medically Managed Detox Regimen/Protocol: Librium Breathalyzer - Breathalyzer Breathalyzer: 0 Urine Drug Screen - Test Device Lot number: [id number] Expiration date: 08/13/21 - Control Is test valid?: Yes - Results Drug screen NEGATIVE: No Urine drug screen results: THC-Marijuana, CICI-Cocaine Inpatient Rehab Admission - Rehab Decision to Admit Inpatient rehab admission?: No
[2020-01-21] MEDS: NICOTINE 14 MG/24 HOURS TOPICAL PATCH TD SCH (12:13)
--- NOTE | 2020-01-21 14:24 | PN ---
[facility] Progress Note Note: Patient was approached at bedside. He looks very drowsy and sedated. He can hardly stay awake to respond. When I told him that maybe I will see tomorrow, He responded:" Thank you doc". Please reconsult when patient is more appropriate for psychiatric interview
[2020-01-21] MEDS: hydrOXYzine PAMOATE 25 MG CAPSULE (FP) PO SCH ×3 (14:33→23:10)
[2020-01-21 15:02] LABS: ALBUMIN 4.3 g/dl (3.4-5.0); BILIRUBIN,TOTAL 1.1 mg/dL (0.2-1); BLOOD UREA NITROGEN 15.6 mg/dL (7-18); CALCIUM 9.6 mg/dL (8.5-10.1); CREATININE 1.3 mg/dL (0.55-1.3); POTASSIUM 4.5 mmol/L (3.5-5.1); TOT PROT 9.1 g/dl (6.4-8.2)
[2020-01-21 15:03] LABS: HEMATOCRIT 44.4 % (35.4-49); HEMOGLOBIN 15.1 GM/dL (11.7-16.9); MCH 32.4 pg (25.7-33.7); MCHC 34.1 g/dl (32.0-35.9); MEAN CELL VOLUME 95.2 fl (80-96); PLATELET COUNT 247 K/MM3 (134-434); RBC 4.67 M/mm3 (4.00-5.60); RDW 15.3 % (11.9-15.9); WHITE BLOOD COUNT 5.7 K/mm3 (4.0-10.0)
[2020-01-21] MEDS: chlordiazePOXIDE HCL 25 MG CAPSULE PO SCH ×2 (17:44→23:11)
[2020-01-21] MEDS ORDERED: MELATONIN 5 MG TABLETS PO SCH (22:00)
[2020-01-21] MEDS: THIAMINE HCL 100 MG TABLET (FP) PO SCH (23:11)
[2020-01-22] MEDS: chlordiazePOXIDE HCL 25 MG CAPSULE PO SCH ×4 (07:08→22:36)
[2020-01-22] MEDS: hydrOXYzine PAMOATE 25 MG CAPSULE (FP) PO SCH ×5 (07:09→22:38)
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
[2020-01-22] MEDS: PRENATAL VITAMINS W/ FOLIC ACID TABLET (FP) PO SCH (10:43)
[2020-01-22] MEDS: NICOTINE 14 MG/24 HOURS TOPICAL PATCH TD SCH (10:43)
--- NOTE | 2020-01-22 11:05 | PN ---
S CIWA - CIWA Score Nausea/Vomitin-No Nausea/No Vomiting Muscle Tremors: 2 Anxiety: 2 Agitation: 2 Paroxysmal Sweats: 2 Orientation: 0-Oriented Tacttile Disturbances: 0-None Auditory Disturbances: 0-None Visual Disturbances: 0-None Headache: 0-None Present CIWA-Ar Total Score: 8 BHS Progress Note (SOAP) Subjective: irritable sweats agitation interrupted sleep Objective: 01/22/20 11:06 Vital Signs Temperature 98.6 F 01/22/20 09:17 Pulse Rate 76 01/22/20 09:17 Respiratory Rate 18 01/22/20 09:17 Blood Pressure 104/57 L 01/22/20 09:17 O2 Sat by Pulse Oximetry (%) 96 01/22/20 09:17 Laboratory Tests 01/21/20 01/21/20 01/21/20 11:10 11:10 11:10 WBC 5.7 RBC 4.67 Hgb 15.1 Hct 44.4 MCV 95.2 MCH 32.4 MCHC 34.1 RDW 15.3 Plt Count 247 MPV 9.0 Sodium 137 Potassium 4.5 Chloride 101 Carbon Dioxide 32 Anion Gap 4 L BUN 15.6 Creatinine 1.3 Est GFR (CKD-EPI)AfAm 72.71 Est GFR (CKD-EPI)NonAf 62.73 Random Glucose 81 Calcium 9.6 Total Bilirubin 1.1 H AST 27 ALT 41 Alkaline Phosphatase 86 Total Protein 9.1 H Albumin 4.3 Syphilis Serology Non-reactive COVID-19 (MARIAM) 01/21/20 11:10 WBC RBC Hgb Hct MCV MCH MCHC RDW Plt Count MPV Sodium Potassium Chloride Carbon Dioxide Anion Gap BUN Creatinine Est GFR (CKD-EPI)AfAm Est GFR (CKD-EPI)NonAf Random Glucose Calcium Total Bilirubin AST ALT Alkaline Phosphatase Total Protein Albumin Syphilis Serology COVID-19 (MARIAM) Not detected aaox3 ambulating no acute distress Assessment: 01/22/20 11:08 withdrawals Plan: continue detox increase fluids
[2020-01-22] MEDS ORDERED: SUVOREXANT 10 MG TABLET PO PRN (22:00)
[2020-01-22] MEDS: THIAMINE HCL 100 MG TABLET (FP) PO SCH (22:36)
[2020-01-23] MEDS: hydrOXYzine PAMOATE 25 MG CAPSULE (FP) PO SCH ×3 (06:52→13:13)
[2020-01-23] MEDS: chlordiazePOXIDE HCL 25 MG CAPSULE PO SCH ×2 (06:52→10:33)
[2020-01-23 09:39] VITALS: BP 144/55; PULSE 82; TEMP 98
[2020-01-23] MEDS: NICOTINE 14 MG/24 HOURS TOPICAL PATCH TD SCH (10:32)
[2020-01-23] MEDS: PRENATAL VITAMINS W/ FOLIC ACID TABLET (FP) PO SCH (10:33)
--- NOTE | 2020-01-23 10:56 | PN ---
S CIWA - CIWA Score Nausea/Vomitin-No Nausea/No Vomiting Muscle Tremors: 2 Anxiety: 1-Mildly Anxious Agitation: 1-Slight > Activity Paroxysmal Sweats: 2 Orientation: 0-Oriented Tacttile Disturbances: 0-None Auditory Disturbances: 0-None Visual Disturbances: 0-None Headache: 0-None Present CIWA-Ar Total Score: 6 BHS Progress Note (SOAP) Subjective: tired sweats interrupted sleep Objective: 01/23/20 10:56 Vital Signs Temperature 98.0 F 01/23/20 08:30 Pulse Rate 82 01/23/20 08:30 Respiratory Rate 16 01/23/20 08:30 Blood Pressure 144/55 L 01/23/20 08:30 O2 Sat by Pulse Oximetry (%) 94 L 01/23/20 05:29 Laboratory Tests 01/21/20 01/21/20 01/21/20 11:10 11:10 11:10 WBC 5.7 RBC 4.67 Hgb 15.1 Hct 44.4 MCV 95.2 MCH 32.4 MCHC 34.1 RDW 15.3 Plt Count 247 MPV 9.0 Sodium 137 Potassium 4.5 Chloride 101 Carbon Dioxide 32 Anion Gap 4 L BUN 15.6 Creatinine 1.3 Est GFR (CKD-EPI)AfAm 72.71 Est GFR (CKD-EPI)NonAf 62.73 Random Glucose 81 Calcium 9.6 Total Bilirubin 1.1 H AST 27 ALT 41 Alkaline Phosphatase 86 Total Protein 9.1 H Albumin 4.3 Syphilis Serology Non-reactive COVID-19 (MARIAM) 01/21/20 11:10 WBC RBC Hgb Hct MCV MCH MCHC RDW Plt Count MPV Sodium Potassium Chloride Carbon Dioxide Anion Gap BUN Creatinine Est GFR (CKD-EPI)AfAm Est GFR (CKD-EPI)NonAf Random Glucose Calcium Total Bilirubin AST ALT Alkaline Phosphatase Total Protein Albumin Syphilis Serology COVID-19 (MARIAM) Not detected aaox3 lying in bed no acute distress Assessment: 01/23/20 10:56 withdrawals Plan: continue detox
--- NOTE | 2020-01-23 13:51 | PN ---
[facility] Progress Note Note: patient would like to be discharged due to family emergency the brother is at [facility] alert,oriented x 3 bp 102/57,p69,r16,t 98.2 no complaint no withdrawal symptom no tremor stable for discharge follow up with [facility] has own safe place to stay
--- NOTE | 2020-01-23 13:54 | DS ---
[facility] Detox Discharge Summary Admission Date: 01/21/20 Discharge Date: 01/23/20 - History Present History: Alcohol Dependence, Cannabis Dependence, Cocaine Dependence Additional Comments: alert,oriented x 3 ambulation on the unit lung clear bilaterally on auscultation abdomen soft,no distension,no pain,no tenderness no edema of the leg stable for discharge,no withdrawal symptom total discharge time spending 35 minutes follow up with new focus for after care Pertinent Past History: insomnia nicotine dependence - Physical Exam Results Vital Signs: Vital Signs Temperature 98.0 F 01/23/20 08:30 Pulse Rate 82 01/23/20 08:30 Respiratory Rate 16 01/23/20 08:30 Blood Pressure 144/55 L 01/23/20 08:30 O2 Sat by Pulse Oximetry (%) 94 L 01/23/20 05:29 Pertinent Admission Physical Exam Findings: withdrawal sign and symptom Laboratory Last Values WBC 5.7 K/mm3 (4.0-10.0) 01/21/20 11:10 RBC 4.67 M/mm3 (4.00-5.60) 01/21/20 11:10 Hgb 15.1 GM/dL (11.7-16.9) 01/21/20 11:10 Hct 44.4 % (35.4-49) 01/21/20 11:10 MCV 95.2 fl (80-96) 01/21/20 11:10 MCH 32.4 pg (25.7-33.7) 01/21/20 11:10 MCHC 34.1 g/dl (32.0-35.9) 01/21/20 11:10 RDW 15.3 % (11.9-15.9) 01/21/20 11:10 Plt Count 247 K/MM3 (134-434) 01/21/20 11:10 MPV 9.0 fl (7.5-11.1) 01/21/20 11:10 Sodium 137 mmol/L (136-145) 01/21/20 11:10 Potassium 4.5 mmol/L (3.5-5.1) 01/21/20 11:10 Chloride 101 mmol/L (98-107) 01/21/20 11:10 Carbon Dioxide 32 mmol/L (21-32) 01/21/20 11:10 Anion Gap 4 MMOL/L (8-16) L 01/21/20 11:10 BUN 15.6 mg/dL (7-18) 01/21/20 11:10 Creatinine 1.3 mg/dL (0.55-1.3) 01/21/20 11:10 Est GFR (CKD-EPI)AfAm 72.71 01/21/20 11:10 Est GFR (CKD-EPI)NonAf 62.73 01/21/20 11:10 Random Glucose 81 mg/dL (74-106) 01/21/20 11:10 Calcium 9.6 mg/dL (8.5-10.1) 01/21/20 11:10 Total Bilirubin 1.1 mg/dL (0.2-1) H 01/21/20 11:10 AST 27 U/L (15-37) 01/21/20 11:10 ALT 41 U/L (13-61) 01/21/20 11:10 Alkaline Phosphatase 86 U/L (45-117) 01/21/20 11:10 Total Protein 9.1 g/dl (6.4-8.2) H 01/21/20 11:10 Albumin 4.3 g/dl (3.4-5.0) 01/21/20 11:10 Syphilis Serology Non-reactive (NONREACTIVE) 01/21/20 11:10 COVID-19 ([facility]) Not detected (Not Detected) 01/21/20 11:10 bp 102/57,p69,r16,t98.2 - Treatment Hospital Course: Detox Protocol Followed, Detoxed Safely, Responded well, Discharged Condition Good Patient has Accepted a Rehab Referral to: declined - Medication Discharge Medications: Ambulatory Orders NK [No Known Home Medication] 07/07/16 - Diagnosis (1) Phencyclidine (PCP) use disorder, mild, abuse Current Visit: Yes Status: Acute (2) Alcohol dependence with uncomplicated withdrawal Current Visit: No Status: Acute (3) Cannabis dependence Current Visit: No Status: Acute (4) Cocaine dependence Current Visit: No Status: Acute Qualifiers: Substance use status: uncomplicated Qualified Code(s): F14.20 - Cocaine dependence, uncomplicated - AMA Did Patient Leave Against Medical Advice: No
[2020-01-24] MEDS ORDERED: chlordiazePOXIDE HCL 10 MG CAPSULE PO PRN
[2020-01-24] MEDS ORDERED: chlordiazePOXIDE HCL 10 MG CAPSULE PO SCH (05:00)
[2020-01-25] MEDS ORDERED: chlordiazePOXIDE HCL 10 MG CAPSULE PO SCH (05:00)
[2020-01-26] MEDS ORDERED: chlordiazePOXIDE HCL 10 MG CAPSULE PO ONE (05:00)
== END 2020-01-23 13:46 | disposition home or self-care (01) | DRG 774 ==
LOC: YASAS 09:04 → Y6N 10:51
PROVIDERS: ADMIT Allergy & Immunology; ATTEND Allergy & Immunology
PROC: HZ2ZZZZ Detoxification Services for Substance Abuse Treatment (ICD-10-PCS; principal; 2020-01-21)
DX: F10.230 Alcohol dependence with withdrawal, uncomplicated (principal); F14.20 Cocaine dependence, uncomplicated; F16.10 Hallucinogen abuse, uncomplicated; F12.20 Cannabis dependence, uncomplicated; F17.210 Nicotine dependence, cigarettes, uncomplicated; F19.282 Other psychoactive substance dependence with psychoactive substance-induced sleep disorder; F19.24 Other psychoactive substance dependence with psychoactive substance-induced mood disorder; F32.9 Major depressive disorder, single episode, unspecified; G47.00 Insomnia, unspecified; Z56.0 Unemployment, unspecified; Z59.0 Homelessness
CPT/HCPCS: 36415; 80053; 85027; 86780; U0003

== ENCOUNTER 2020-04-11 10:05 | Inpatient (IN) | payer OTHER ==
[2020-04-11] MEDS ORDERED: MAGNESIUM CITRATE 300 ML BOTTLE PO PRN (12:27)
[2020-04-11] MEDS ORDERED: BISMUTH SUBSALICYLATE 524 MG/30 ML UD PO PRN (12:27)
[2020-04-11] MEDS ORDERED: MAG HYDROX/AL HYDROX/SIMETH 30 ML UNIT-DOSE CUP PO PRN (12:27)
[2020-04-11] MEDS ORDERED: ONDANSETRON *ODT* 4 MG TABLET SL PRN (12:27)
[2020-04-11] MEDS ORDERED: MAGNESIUM HYDROX 2400MG/30ML ORAL SUSPENSION 30 ML CUP PO PRN (12:27)
[2020-04-11] MEDS ORDERED: MENTHOL/PHENOL 1 EACH UD MM PRN (12:27)
[2020-04-11] MEDS ORDERED: NICOTINE POLACRILEX 2 MG GUM BUC PRN (12:27)
[2020-04-11] MEDS ORDERED: ACETAMINOPHEN 325 MG TABLET (FP) PO PRN ×2 (12:27)
[2020-04-11] MEDS ORDERED: diazePAM 5 MG TABLET PO PRN (12:27)
[2020-04-11] MEDS ORDERED: IBUPROFEN 400 MG TABLET (FP) PO PRN (12:27)
[2020-04-11 13:15] VITALS: BMI 21.5
[2020-04-11] MEDS: hydrOXYzine PAMOATE 25 MG CAPSULE (FP) PO SCH ×3 (13:44→22:46)
[2020-04-11] MEDS: diazePAM 5 MG TABLET PO SCH ×2 (17:58→22:45)
[2020-04-11] MEDS: MELATONIN 5 MG TABLETS PO SCH (22:46)
[2020-04-11] MEDS: THIAMINE HCL 100 MG TABLET (FP) PO SCH (22:46)
[2020-04-12] MEDS: hydrOXYzine PAMOATE 25 MG CAPSULE (FP) PO SCH ×5 (06:30→23:18)
[2020-04-12] MEDS: diazePAM 5 MG TABLET PO SCH ×4 (06:30→23:18)
[2020-04-12] MEDS: METHOCARBAMOL 500 MG TABLET PO PRN ×2 (06:32→13:19)
[2020-04-12] MEDS: PRENATAL VITAMINS W/ FOLIC ACID TABLET (FP) PO SCH (10:15)
[2020-04-12] MEDS: NICOTINE 21 MG/24 HOURS TOPICAL PATCH TD SCH (10:16)
[2020-04-12 11:14] LABS: HEMATOCRIT 45.7 % (35.4-49); HEMOGLOBIN 15.3 GM/dL (11.7-16.9); MCHC 33.6 g/dl (32.0-35.9); MEAN CELL VOLUME 95.4 fl (80-96); MEAN PLT VOLUME 8.9 fl (7.5-11.1); PLATELET COUNT 270 K/MM3 (134-434); RBC 4.79 M/mm3 (4.00-5.60); RDW 14.4 % (11.9-15.9); WHITE BLOOD COUNT 4.3 K/mm3 (4.0-10.0)
[2020-04-12 11:18] LABS: POTASSIUM 4.4 mmol/L (3.5-5.1)
[2020-04-12 11:29] LABS: ALBUMIN 3.7 g/dl (3.4-5.0); BLOOD UREA NITROGEN 17.8 mg/dL (7-18)
[2020-04-12 11:32] LABS: CREATININE 1.3 mg/dL (0.55-1.3)
[2020-04-12 11:34] LABS: TOT PROT 7.4 g/dl (6.4-8.2)
[2020-04-12] MEDS: MELATONIN 5 MG TABLETS PO SCH (23:17)
[2020-04-12] MEDS: THIAMINE HCL 100 MG TABLET (FP) PO SCH (23:18)
[2020-04-13] MEDS: diazePAM 5 MG TABLET PO SCH ×3 (06:20→23:00)
[2020-04-13] MEDS: hydrOXYzine PAMOATE 25 MG CAPSULE (FP) PO SCH ×5 (06:20→23:00)
[2020-04-13] MEDS: PRENATAL VITAMINS W/ FOLIC ACID TABLET (FP) PO SCH (09:49)
[2020-04-13] MEDS: NICOTINE 21 MG/24 HOURS TOPICAL PATCH TD SCH (09:52)
[2020-04-13] MEDS: METHOCARBAMOL 500 MG TABLET PO PRN (18:03)
[2020-04-13] MEDS: MELATONIN 5 MG TABLETS PO SCH (23:00)
[2020-04-13] MEDS: THIAMINE HCL 100 MG TABLET (FP) PO SCH (23:00)
[2020-04-14] MEDS: diazePAM 5 MG TABLET PO SCH ×2 (06:30→17:40)
[2020-04-14] MEDS: hydrOXYzine PAMOATE 25 MG CAPSULE (FP) PO SCH ×5 (06:30→22:52)
[2020-04-14] MEDS: LIDOCAINE 5% TOPICAL PATCH TP SCH (10:16)
[2020-04-14] MEDS: NICOTINE 21 MG/24 HOURS TOPICAL PATCH TD SCH (10:17)
[2020-04-14] MEDS: PRENATAL VITAMINS W/ FOLIC ACID TABLET (FP) PO SCH (10:17)
[2020-04-14] MEDS ORDERED: LIDOCAINE PATCH REMOVAL MC SCH (22:00)
[2020-04-14] MEDS: MELATONIN 5 MG TABLETS PO SCH (22:52)
[2020-04-14] MEDS: THIAMINE HCL 100 MG TABLET (FP) PO SCH (22:53)
[2020-04-15] MEDS: hydrOXYzine PAMOATE 25 MG CAPSULE (FP) PO SCH ×2 (05:32→09:20)
[2020-04-15] MEDS ORDERED: diazePAM 5 MG TABLET PO ONE (06:00)
[2020-04-15] MEDS: NICOTINE 21 MG/24 HOURS TOPICAL PATCH TD SCH (09:19)
[2020-04-15] MEDS: PRENATAL VITAMINS W/ FOLIC ACID TABLET (FP) PO SCH (09:21)
[2020-04-15] MEDS: LIDOCAINE 5% TOPICAL PATCH TP SCH (09:21)
[2020-04-15 10:27] VITALS: BP 127/79; PULSE 90; TEMP 97.1
== END 2020-04-15 10:01 | disposition home or self-care (01) | DRG 774 ==
LOC: YASAS 10:05 → Y3N 12:48
PROVIDERS: ADMIT Allergy & Immunology; ATTEND Allergy & Immunology
PROC: HZ2ZZZZ Detoxification Services for Substance Abuse Treatment (ICD-10-PCS; principal; 2020-04-11)
DX: F10.230 Alcohol dependence with withdrawal, uncomplicated (principal); F14.20 Cocaine dependence, uncomplicated; F12.20 Cannabis dependence, uncomplicated; F16.10 Hallucinogen abuse, uncomplicated; F17.210 Nicotine dependence, cigarettes, uncomplicated; R73.09 Other abnormal glucose; Z56.0 Unemployment, unspecified
CPT/HCPCS: 36415; 80053; 82962; 85027; 86780; C9803; U0003

== ENCOUNTER 2020-09-10 18:04 | Inpatient (IN) | payer OTHER ==
[2020-09-10] MEDS ORDERED: chlordiazePOXIDE HCL 25 MG CAPSULE PO PRN (19:35)
[2020-09-10] MEDS ORDERED: ACETAMINOPHEN 325 MG TABLET (FP) PO PRN ×2 (19:35)
[2020-09-10] MEDS ORDERED: ONDANSETRON *ODT* 4 MG TABLET SL PRN (19:35)
[2020-09-10] MEDS ORDERED: METHOCARBAMOL 500 MG TABLET PO PRN (19:35)
[2020-09-10] MEDS ORDERED: MENTHOL/PHENOL 1 EACH UD MM PRN (19:35)
[2020-09-10] MEDS ORDERED: IBUPROFEN 400 MG TABLET (FP) PO PRN (19:35)
[2020-09-10] MEDS ORDERED: MAG HYDROX/AL HYDROX/SIMETH 30 ML UNIT-DOSE CUP PO PRN (19:35)
[2020-09-10] MEDS ORDERED: MAGNESIUM HYDROX 2400MG/30ML ORAL SUSPENSION 30 ML CUP PO PRN (19:35)
[2020-09-10] MEDS ORDERED: MAGNESIUM CITRATE 300 ML BOTTLE PO PRN (19:35)
[2020-09-10] MEDS ORDERED: BISMUTH SUBSALICYLATE 524 MG/30 ML UD PO PRN (19:35)
[2020-09-10 19:55] VITALS: BMI 21.8
[2020-09-11] MEDS: MELATONIN 5 MG TABLETS PO SCH ×2 (00:40→22:49)
[2020-09-11] MEDS: PRENATAL VITAMINS W/ FOLIC ACID TABLET (FP) PO SCH ×2 (00:40→10:33)
[2020-09-11] MEDS: THIAMINE HCL 100 MG TABLET (FP) PO SCH ×2 (00:41→22:49)
[2020-09-11] MEDS: hydrOXYzine PAMOATE 25 MG CAPSULE (FP) PO SCH ×6 (00:41→22:49)
[2020-09-11] MEDS: chlordiazePOXIDE HCL 25 MG CAPSULE PO SCH ×5 (00:41→22:49)
[2020-09-11 10:25] LABS: CALCIUM 8.4 mg/dL (8.5-10.1)
[2020-09-11 10:26] LABS: ALBUMIN 3.6 g/dl (3.4-5.0); BLOOD UREA NITROGEN 15.7 mg/dL (7-18)
[2020-09-11 10:28] LABS: HEMATOCRIT 41.5 % (35.4-49); HEMOGLOBIN 14.1 GM/dL (11.7-16.9); MCH 31.6 pg (25.7-33.7); MEAN CELL VOLUME 93.1 fl (80-96); MEAN PLT VOLUME 9.2 fl (7.5-11.1); PLATELET COUNT 226 K/MM3 (134-434); RBC 4.46 M/mm3 (4.00-5.60); RDW 14.5 % (11.9-15.9); WHITE BLOOD COUNT 3.8 K/mm3 (4.0-10.0)
[2020-09-11 10:29] LABS: CREATININE 1.5 mg/dL (0.55-1.3)
[2020-09-11 10:31] LABS: BILIRUBIN,TOTAL 0.6 mg/dL (0.2-1); TOT PROT 6.7 g/dl (6.4-8.2)
[2020-09-12] MEDS: chlordiazePOXIDE HCL 25 MG CAPSULE PO SCH ×4 (05:59→23:15)
[2020-09-12] MEDS: hydrOXYzine PAMOATE 25 MG CAPSULE (FP) PO SCH ×5 (05:59→23:16)
[2020-09-12] MEDS: PRENATAL VITAMINS W/ FOLIC ACID TABLET (FP) PO SCH (10:47)
[2020-09-12] MEDS: MELATONIN 5 MG TABLETS PO SCH (23:15)
[2020-09-12] MEDS: THIAMINE HCL 100 MG TABLET (FP) PO SCH (23:16)
[2020-09-13] MEDS ORDERED: chlordiazePOXIDE HCL 10 MG CAPSULE PO PRN
[2020-09-13] MEDS: hydrOXYzine PAMOATE 25 MG CAPSULE (FP) PO SCH ×5 (07:31→22:12)
[2020-09-13] MEDS: chlordiazePOXIDE HCL 10 MG CAPSULE PO SCH ×4 (07:31→22:13)
[2020-09-13] MEDS: PRENATAL VITAMINS W/ FOLIC ACID TABLET (FP) PO SCH (10:09)
[2020-09-13] MEDS ORDERED: COLLOIDAL OATMEAL 1 BAR EACH TP PRN (10:39)
[2020-09-13 14:11] LABS: SARS-CoV-2 NAA Not Detected (Not Detected)
[2020-09-13] MEDS: MELATONIN 5 MG TABLETS PO SCH (22:12)
[2020-09-13] MEDS: THIAMINE HCL 100 MG TABLET (FP) PO SCH (22:12)
[2020-09-13] MEDS: NICOTINE POLACRILEX 2 MG GUM BUC PRN (22:13)
[2020-09-14] MEDS: chlordiazePOXIDE HCL 10 MG CAPSULE PO SCH ×2 (06:30→17:42)
[2020-09-14] MEDS: hydrOXYzine PAMOATE 25 MG CAPSULE (FP) PO SCH (06:31)
[2020-09-14] MEDS: NICOTINE POLACRILEX 2 MG GUM BUC PRN ×2 (06:41→10:18)
[2020-09-14] MEDS ORDERED: hydrOXYzine PAMOATE 25 MG CAPSULE (FP) PO PRN (08:27)
[2020-09-14] MEDS: PRENATAL VITAMINS W/ FOLIC ACID TABLET (FP) PO SCH (10:18)
[2020-09-14 10:40] LABS: BLOOD UREA NITROGEN 14.2 mg/dL (7-18); CALCIUM 8.8 mg/dL (8.5-10.1)
[2020-09-14 10:43] LABS: CREATININE 1.3 mg/dL (0.55-1.3)
[2020-09-14] MEDS: MELATONIN 5 MG TABLETS PO SCH (22:13)
[2020-09-14] MEDS: THIAMINE HCL 100 MG TABLET (FP) PO SCH (22:13)
[2020-09-15] MEDS ORDERED: chlordiazePOXIDE HCL 10 MG CAPSULE PO ONE (05:00)
[2020-09-15 08:54] VITALS: BP 124/67; PULSE 64; TEMP 98.2
== END 2020-09-15 10:00 | disposition home or self-care (01) | DRG 773 ==
LOC: YASAS 18:04 → Y3N 22:37
PROVIDERS: ADMIT Allergy & Immunology; ATTEND Allergy & Immunology
PROC: HZ2ZZZZ Detoxification Services for Substance Abuse Treatment (ICD-10-PCS; principal; 2020-09-10)
DX: F10.230 Alcohol dependence with withdrawal, uncomplicated (principal); F11.20 Opioid dependence, uncomplicated; F14.20 Cocaine dependence, uncomplicated; F16.10 Hallucinogen abuse, uncomplicated; F12.20 Cannabis dependence, uncomplicated; F17.210 Nicotine dependence, cigarettes, uncomplicated; F19.282 Other psychoactive substance dependence with psychoactive substance-induced sleep disorder; F19.24 Other psychoactive substance dependence with psychoactive substance-induced mood disorder; N17.9 Acute kidney failure, unspecified; D72.829 Elevated white blood cell count, unspecified; K08.89 Other specified disorders of teeth and supporting structures
CPT/HCPCS: 36415; 80048; 80053; 85027; 86780; C9803; U0003; U0005

== ENCOUNTER 2021-01-23 11:04 | Inpatient (IN) | payer OTHER ==
[2021-01-23] MEDS ORDERED: MAGNESIUM HYDROX 2400MG/30ML ORAL SUSPENSION 30 ML CUP PO PRN (17:33)
[2021-01-23] MEDS ORDERED: MAG HYDROX/AL HYDROX/SIMETH 30 ML UNIT-DOSE CUP PO PRN (17:33)
[2021-01-23] MEDS ORDERED: ACETAMINOPHEN 325 MG TABLET (FP) PO PRN ×2 (17:33)
[2021-01-23] MEDS ORDERED: MAGNESIUM CITRATE 300 ML BOTTLE PO PRN (17:33)
[2021-01-23] MEDS ORDERED: NICOTINE 10 MG CARTRIDGE (INHALER) IH PRN (17:33)
[2021-01-23] MEDS ORDERED: METHOCARBAMOL 500 MG TABLET PO PRN (17:33)
[2021-01-23] MEDS ORDERED: ONDANSETRON *ODT* 4 MG TABLET SL PRN (17:33)
[2021-01-23] MEDS ORDERED: BISMUTH SUBSALICYLATE 524 MG/30 ML PO PRN (17:33)
[2021-01-23] MEDS ORDERED: MENTHOL/PHENOL 1 EACH UD MM PRN (17:33)
[2021-01-23] MEDS ORDERED: IBUPROFEN 400 MG TABLET (FP) PO PRN (17:33)
[2021-01-23 18:09] VITALS: BMI 24.2
[2021-01-23] MEDS: hydrOXYzine PAMOATE 25 MG CAPSULE (FP) PO SCH ×2 (19:05→23:00)
[2021-01-23] MEDS ORDERED: MELATONIN 5 MG TABLETS PO SCH (22:00)
[2021-01-23] MEDS: THIAMINE HCL 100 MG TABLET (FP) PO SCH (23:00)
[2021-01-24] MEDS: hydrOXYzine PAMOATE 25 MG CAPSULE (FP) PO SCH ×5 (07:22→22:37)
[2021-01-24] MEDS: PRENATAL VITAMINS W/ FOLIC ACID TABLET (FP) PO SCH (10:56)
[2021-01-24] MEDS: THIAMINE HCL 100 MG TABLET (FP) PO SCH (22:37)
[2021-01-24] MEDS: SUVOREXANT 10 MG TABLET PO PRN (22:38)
[2021-01-25] MEDS: hydrOXYzine PAMOATE 25 MG CAPSULE (FP) PO SCH ×5 (06:25→22:33)
[2021-01-25] MEDS: PRENATAL VITAMINS W/ FOLIC ACID TABLET (FP) PO SCH (10:23)
[2021-01-25 11:27] LABS: HEMATOCRIT 38.9 % (35.4-49); HEMOGLOBIN 13.1 GM/dL (11.7-16.9); MCH 31.1 pg (25.7-33.7); MCHC 33.8 g/dl (32.0-35.9); MEAN CELL VOLUME 92.2 fl (80-96); PLATELET COUNT 231 10^3/uL (134-434); RBC 4.22 M/mm3 (4.00-5.60); RDW 14.6 % (11.9-15.9); WHITE BLOOD COUNT 4.6 K/mm3 (4.0-10.0)
[2021-01-25 11:52] LABS: CALCIUM 8.2 mg/dL (8.5-10.1)
[2021-01-25 11:55] LABS: CREATININE 1.2 mg/dL (0.55-1.3)
[2021-01-25 11:57] LABS: BILIRUBIN,TOTAL 0.6 mg/dL (0.2-1); TOT PROT 6.1 g/dl (6.4-8.2)
[2021-01-25] MEDS: SUVOREXANT 10 MG TABLET PO PRN (22:33)
[2021-01-25] MEDS: THIAMINE HCL 100 MG TABLET (FP) PO SCH (22:33)
[2021-01-26] MEDS: hydrOXYzine PAMOATE 25 MG CAPSULE (FP) PO SCH ×2 (06:41→06:42)
[2021-01-26 09:51] VITALS: BP 112/68; PULSE 61; TEMP 97.1
== END 2021-01-26 10:21 | disposition home or self-care (01) | DRG 775 ==
LOC: YASAS 11:04 → UNDOADMIN 17:34 → Y3N 17:34
PROVIDERS: ADMIT Allergy & Immunology; ATTEND Allergy & Immunology
PROC: HZ2ZZZZ Detoxification Services for Substance Abuse Treatment (ICD-10-PCS; principal; 2021-01-23)
DX: F10.230 Alcohol dependence with withdrawal, uncomplicated (principal); F15.20 Other stimulant dependence, uncomplicated; F16.20 Hallucinogen dependence, uncomplicated; F12.20 Cannabis dependence, uncomplicated; F17.210 Nicotine dependence, cigarettes, uncomplicated; F19.282 Other psychoactive substance dependence with psychoactive substance-induced sleep disorder; F19.24 Other psychoactive substance dependence with psychoactive substance-induced mood disorder
CPT/HCPCS: 36415; 80053; 85027; 86780; C9803; U0003; U0005